=== PATIENT | male | born 1960 | race Caucasian/White ===

== ENCOUNTER 2018-01-12 16:15 | Inpatient (IN) | payer MEDICARE, MEDICAID ==
--- NOTE | 2018-01-12 16:47 | ED Physician Chart ---
ED Chief Complaint/HPI - Patient Information Date Seen:: 01/12/18 Time Seen:: 16:30 Chief Complaint:: Psychological break History of Present Illness:: Patient had an acute psychological break while at his care facility, 1 day duration. Patient taken to ER for evaluation. Allergies:: Allergies Allergy/AdvReac Type Severity Reaction Status Date / Time No Known Allergies Allergy Verified 01/12/18 16:25 Vitals:: Vital Signs - 8 hr 01/12/18 16:15 Temp 98.4 F HR 68 RR 16 BP 107/72 O2 Sat % 97 Historian:: EMS, Medical Records Review:: Nurse's Note Reviewed, Transfer documents Reviewed ED Review of Systems - Review of Systems General/Constitutional: No fever Skin: No bruising Head: No headache Eyes: No diplopia ENT: No nasal drainage Neck: No thyromegaly Cardio Vascular: No PND Pulmonary: No SOB GI: No nausea, No vomiting G/U: No hematuria Musculoskeletal: No bone or joint pain Psychiatric: Prior psych history (history of psychosis) Hematopoietic: No bruising Allergic/Immuno: No urticaria Neurological: No syncope ED Past Medical History - Past Medical History Obtainable: No (unreliable) Past Medical History: Other (previous psych history, unreliable historian.) Social History: Care Facility Psychiatricy History: Schizophrenia Family Medical History - Family Member Mother History Unknown: Yes ED Physical Exam - Physical Examination General/Constitutional: Well-developed, well-nourished, No distress, Non-toxic appearing Head: Atraumatic Eyes: Lids, conjuctiva normal Skin: No ecchymosis ENMT: External ears, nose nl Neck: Nontender Respiratory: Nl effort/Exclusion (lazo inspiratory advettial sounds) Cardio Vascular: RRR GI: No tenderness/rebounding/guarding : No CVA tenderness Neuro/Psych: Normal motor strength, No focal deficits Misc: Normal back ED Assessment - Assessment General Assessment: Patient had a psychological break with aggressive behavior while in care facility. ED Septic Shock - . Is Septic Shock (SBP<90, OR Lactate>4 mmol\L) present?: No - <6hrs of presentation: Vital Signs: Vital Signs - 8 hr 01/12/18 16:15 Temp 98.4 F HR 68 RR 16 BP 107/72 O2 Sat % 97 ED Reassessment (Disposition) - Reassessment Reassessment:: No improvement in condition, patient admitted to [facility] for observation, assessment, and treatment. Reassessment Condition:: Unchanged - Diagnosis Diagnosis:: acute psychotic break - Patient Disposition Discharge/Transfer:: Acute Care w/in this hosp
[2018-01-12 17:05] LABS: % BASOPHILS 0.3 % (0.0-2.0); % EOSINOPHILS 0.9 % (0.0-5.0); % LYMPHOCYTES 28.3 % (20.0-50.0); % MONOCYTES 7.1 % (2.0-10.0); % NEUTROPHILS 63.4 % (40.0-80.0); EOSINOPHILE ABSOLUTE 0.1 Th/cmm (0.1-0.4); HEMATOCRIT 37.2 % (41.0-60); HEMOGLOBIN 12.8 gm/dL (12-16); LYMPHOCYTE ABSOLUTE 2.2 Th/cmm (1.5-3.0); MEAN CELL VOLUME 91.1 fl (80-99); MEAN CORPUSCULAR HEMOGLOBIN 31.3 pg (26.0-30.0); MEAN CORPUSCULAR HGB CONC 34.3 pg (28.0-36.0); MEAN PLATELET VOLUME 7.1 fl; MONOCYTE ABSOLUTE 0.6 Th/cmm (0.3-1.0); NEUTROPHILE ABSOLUTE 4.9 Th/cmm (1.8-8.0); PLATELET COUNT 280 Th/cmm (150-400); RED BLOOD COUNT 4.08 Mil/cmm (4.30-5.70); RED CELL DISTRIBUTION WIDTH 13.2 % (11.5-20.0); WHITE BLOOD COUNT 7.8 Th/cmm (4.8-10.8)
[2018-01-12 17:21] LABS: ANION GAP 8.7 (7.0-16.0); BUN - UREA NITROGEN 14 mg/dL (7-25); CALCIUM SERUM 9.4 mg/dL (8.6-10.3); CARBON DIOXIDE 27.2 mEq/L (21.0-31.0); CHLORIDE 100 mEq/L (98-107); CREATININE - SERUM 0.8 mg/dL (0.7-1.3); GFR AFRICAN-AMERICAN > 60.0 ml/min (>90); GFR NON AFRICAN-AMERICAN > 60.0 ml/min; GLUCOSE 83 mg/dL (70-105); POTASSIUM SERUM 3.9 mEq/L (3.5-5.1); SODIUM SERUM 132 mEq/L (136-145)
[2018-01-12 20:04] VITALS: BP 138/85
[2018-01-12] MEDS ORDERED: Magnesium Hydroxide (MOM) 30 mL UDC PO PRN (20:04)
[2018-01-12] MEDS ORDERED: Maalox 30 mL Cup PO PRN (20:04)
[2018-01-12] MEDS ORDERED: Albuterol Nebulizer 2.5mg/3mL HHN PRN (20:07)
[2018-01-12] MEDS ORDERED: Non-Formulary Item 1 EA (Meloxicam [Meloxicam] 15 MG) PO PRN (20:07)
--- NOTE | 2018-01-12 22:43 | History & Physical ---
ADMIT DATE: 01/12/2018 This is an elderly male patient who was acting very aggressive at the [facility] and [facility] and the patient was brought to the Emergency Room at [facility], was seen by the ER, was medically clear and no major medical issues. REVIEW OF SYSTEMS: Essentially negative except history of psych history. LABORATORY DATA: Laboratory data also obtained. PHYSICAL EXAMINATION: GENERAL: Well-developed, well-nourished elderly male, nontoxic appearing, male patient, not in acute distress. VITAL SIGNS: Stable. HEAD: Normal. ENT: Normal. NECK: Supple, nontender. LUNGS: Clear. CARDIOVASCULAR SYSTEM: S1, S2 heard. ABDOMEN: Soft. Bowel sounds heard. CENTRAL NERVOUS SYSTEM: Grossly normal. ASSESSMENT: Acute psychosis, aggressive behavior and no major medical issues. PLAN: The patient is being admitted to [facility] and I will see the patient there and follow along with Dr. Guo. JOB# [id number]
[2018-01-13] MEDS: Hydrocodone/APAP 10 mg/325 mg Tab PO PRN ×3 (01:34→18:43)
[2018-01-13] MEDS: Multivitamin Tab PO SCH (09:32)
[2018-01-13] MEDS: Enoxaparin 30 mg/0.3 mL 0.3mL Syr SUBQ SCH ×2 (12:25→21:52)
--- NOTE | 2018-01-14 01:46 | Psychiatric Evaluation ---
DATE OF SERVICE: 01/13/2018 PSYCHIATRIC INITIAL EVALUATION AND MENTAL STATUS EXAM AGE: 57. SEX: Male. PHYSICIAN: Dr. Guo. CHIEF COMPLAINT: Agitation and aggressive behavior. HISTORY OF PRESENT ILLNESS: The patient is a 57-year-old male who was transferred from [facility]. The patient has been aggressive and has been striking out at staff. He also had been easily agitated and has been in angry and in irritable mood. The patient also has not been able to follow any of staff directions. The patient has history of what seems to be schizoaffective disorder and the patient has not been compliant with taking his medications at times, which is basically a list of them. PAST PSYCHIATRIC HISTORY: The patient has history of what seems to be schizoaffective. PAST MEDICAL HISTORY: The patient has no major medical problems. The patient was medically cleared in the Emergency Room. SOCIAL HISTORY: The patient lives in a prison. No known alcohol or street drug use. No known legal issues. ALLERGIES: No known allergies. MENTAL STATUS EXAMINATION: The patient appears slightly older than stated age. Anxious. Angry. Irritable mood. Thought processes are circumstantial, but no flight of ideas. The patient denies hallucinations or delusions. Denies any suicide or homicide. The patient is alert and oriented to situation and place, but not date or time. Impaired immediate memory, but intact, recent and remote memories. Poor insight and poor judgment. ASSESSMENT: PRIMARY DIAGNOSIS: Schizoaffective disorder, bipolar type, with psychotic features. TREATMENT PLAN: Monitor the patient's behavior and condition closely. Continue psychotropic medications. We will adjust the dose. ESTIMATED LENGTH OF STAY: 5-7 days. PATIENT'S STRENGTHS AND WEAKNESSES: The patient's strength is not clear at this time. Weaknesses is ineffective coping. AFTER DISCHARGE PLAN: Outpatient treatment and followup will continue as an outpatient. CRITERIA FOR DISCHARGE: Better impulse control and stabilizing psychotropic medications and establish outpatient treatment plans. JOB# [id number]
[2018-01-14] MEDS: Multivitamin Tab PO SCH (09:05)
[2018-01-14] MEDS: Enoxaparin 30 mg/0.3 mL 0.3mL Syr SUBQ SCH ×2 (09:05→20:54)
[2018-01-14] MEDS ORDERED: Haloperidol Lactate 5 mg/mL 1mL Vial IM ONE (14:25)
[2018-01-14] MEDS ORDERED: Haloperidol Lactate 5 mg/mL 1mL Vial ONE (14:27)
--- NOTE | 2018-01-14 15:38 | General Progress Note ---
Subjective - Review of Systems Events since last encounter: aggressive behavior otherwise no distress Objective - Results Result Diagrams: 01/12/18 16:59 01/12/18 16:59 Recent Labs: Laboratory Last Values WBC 7.8 Th/cmm (4.8-10.8) 01/12/18 16:59 RBC 4.08 Mil/cmm (4.30-5.70) L 01/12/18 16:59 Hgb 12.8 gm/dL (12-16) 01/12/18 16:59 Hct 37.2 % (41.0-60) L 01/12/18 16:59 MCV 91.1 fl (80-99) 01/12/18 16:59 MCH 31.3 pg (26.0-30.0) H 01/12/18 16:59 MCHC Differential 34.3 pg (28.0-36.0) 01/12/18 16:59 RDW 13.2 % (11.5-20.0) 01/12/18 16:59 Plt Count 280 Th/cmm (150-400) 01/12/18 16:59 MPV 7.1 fl 01/12/18 16:59 Neutrophils % 63.4 % (40.0-80.0) 01/12/18 16:59 Lymphocytes % 28.3 % (20.0-50.0) 01/12/18 16:59 Monocytes % 7.1 % (2.0-10.0) 01/12/18 16:59 Eosinophils % 0.9 % (0.0-5.0) 01/12/18 16:59 Basophils % 0.3 % (0.0-2.0) 01/12/18 16:59 Sodium 132 mEq/L (136-145) L 01/12/18 16:59 Potassium 3.9 mEq/L (3.5-5.1) 01/12/18 16:59 Chloride 100 mEq/L (98-107) 01/12/18 16:59 Carbon Dioxide 27.2 mEq/L (21.0-31.0) 01/12/18 16:59 Anion Gap 8.7 (7.0-16.0) 01/12/18 16:59 BUN 14 mg/dL (7-25) 01/12/18 16:59 Creatinine 0.8 mg/dL (0.7-1.3) 01/12/18 16:59 Est GFR ( Amer) > 60.0 ml/min (>90) 01/12/18 16:59 Est GFR (Non-Af Amer) > 60.0 ml/min 01/12/18 16:59 BUN/Creatinine Ratio 17.5 01/12/18 16:59 Glucose 83 mg/dL (70-105) 01/12/18 16:59 Calcium 9.4 mg/dL (8.6-10.3) 01/12/18 16:59 - Physical Exam Vitals and I&O: Vital Signs Temp 98.1 F 01/13/18 16:20 Pulse 80 01/13/18 20:05 Resp 16 01/14/18 08:00 BP 135/73 01/13/18 16:20 Pulse Ox 97 01/13/18 20:05 Active Medications: Current Medications Acetaminophen (Tylenol) 650 mg PO Q4HR PRN PRN Reason: Mild Pain / Temp above 100 Stop: 03/13/18 20:03 Acetaminophen/Hydrocodone Bitart ([place] 10 Mg/325 Mg) 1 tab PO Q6H PRN PRN Reason: Severe Pain Stop: 03/13/18 20:06 Last Admin: 01/13/18 18:43 Dose: 1 tab Acetaminophen/Hydrocodone Bitart ([place] 5mg/325mg) 1 tab PO Q6H PRN PRN Reason: moderate pain Stop: 03/13/18 20:06 Al Hydrox/Mg Hydrox/Simethicone (Maalox) 30 ml PO Q4HR PRN PRN Reason: GI DISTRESS Stop: 03/13/18 20:03 Albuterol Sulfate (Albuterol 2.5mg/3ml Neb Ud) 2.5 mg HHN Q6HR PRN PRN Reason: sob Stop: 03/13/18 20:06 Enoxaparin Sodium (Lovenox) 30 mg SUBQ Q12HR KB Stop: 03/14/18 10:59 Last Admin: 01/14/18 09:05 Dose: 30 mg Lorazepam (Ativan) 0.5 mg PO Q4HR PRN; Protocol PRN Reason: Anxiety/agitation Stop: 02/11/18 20:03 Last Admin: 01/13/18 21:32 Dose: 0.5 mg Magnesium Hydroxide (Milk Of Magnesia) 30 ml PO HS PRN PRN Reason: Constipation Multivitamins/Vitamin C (Theragran) 1 tab PO DAILY KB Stop: 03/14/18 08:59 Last Admin: 01/14/18 09:05 Dose: 1 tab Ondansetron HCl (Zofran Odt) 4 mg PO Q6HR PRN PRN Reason: nausea and vomiting Stop: 03/13/18 20:06 Risperidone (Risperdal) 1 mg PO HS KB; Protocol Stop: 03/15/18 20:59 Tramadol HCl (Ultram) 50 mg PO Q6H PRN PRN Reason: pain Stop: 03/13/18 20:06 Zolpidem Tartrate (Ambien) 5 mg PO HS PRN PRN Reason: Insomnia Stop: 03/13/18 20:03 Last Admin: 01/13/18 20:55 Dose: 5 mg
--- NOTE | 2018-01-14 21:21 | Progress Notes ---
DATE: 01/14/2018 SUBJECTIVE: Chart reviewed and the patient interviewed. Also discussed the patient's condition with the staff and reviewed records and labs. The patient continued to be angry at times. The patient also is talking to herself and he is laughing to self. The patient also is still having episodes of anger and irritability and wanted to be left alone. The patient also still actively hallucinating and responding. Also, the patient still has some somatic complaints. Otherwise, the patient continued to comply with taking Risperdal with no side effects. ASSESSMENT: The patient is still psychotic. TREATMENT PLAN: We will increase Risperdal to 1 mg twice a day. Also, we will continue working on his ineffective coping and his psychosis and continue to follow up. JOB# [id number]
[2018-01-15] MEDS: Multivitamin Tab PO SCH (08:29)
[2018-01-15] MEDS: Enoxaparin 30 mg/0.3 mL 0.3mL Syr SUBQ SCH ×2 (08:29→20:29)
--- NOTE | 2018-01-15 12:25 | General Progress Note ---
Subjective - Review of Systems Events since last encounter: patient psychotic paranoid irritable no signs of pain Objective - Results Result Diagrams: 01/12/18 16:59 01/12/18 16:59 Recent Labs: Laboratory Last Values WBC 7.8 Th/cmm (4.8-10.8) 01/12/18 16:59 RBC 4.08 Mil/cmm (4.30-5.70) L 01/12/18 16:59 Hgb 12.8 gm/dL (12-16) 01/12/18 16:59 Hct 37.2 % (41.0-60) L 01/12/18 16:59 MCV 91.1 fl (80-99) 01/12/18 16:59 MCH 31.3 pg (26.0-30.0) H 01/12/18 16:59 MCHC Differential 34.3 pg (28.0-36.0) 01/12/18 16:59 RDW 13.2 % (11.5-20.0) 01/12/18 16:59 Plt Count 280 Th/cmm (150-400) 01/12/18 16:59 MPV 7.1 fl 01/12/18 16:59 Neutrophils % 63.4 % (40.0-80.0) 01/12/18 16:59 Lymphocytes % 28.3 % (20.0-50.0) 01/12/18 16:59 Monocytes % 7.1 % (2.0-10.0) 01/12/18 16:59 Eosinophils % 0.9 % (0.0-5.0) 01/12/18 16:59 Basophils % 0.3 % (0.0-2.0) 01/12/18 16:59 Sodium 132 mEq/L (136-145) L 01/12/18 16:59 Potassium 3.9 mEq/L (3.5-5.1) 01/12/18 16:59 Chloride 100 mEq/L (98-107) 01/12/18 16:59 Carbon Dioxide 27.2 mEq/L (21.0-31.0) 01/12/18 16:59 Anion Gap 8.7 (7.0-16.0) 01/12/18 16:59 BUN 14 mg/dL (7-25) 07/16/18 16:59 Creatinine 0.8 mg/dL (0.7-1.3) 01/12/18 16:59 Est GFR ( Amer) > 60.0 ml/min (>90) 01/12/18 16:59 Est GFR (Non-Af Amer) > 60.0 ml/min 01/12/18 16:59 BUN/Creatinine Ratio 17.5 01/12/18 16:59 Glucose 83 mg/dL (70-105) 01/12/18 16:59 Calcium 9.4 mg/dL (8.6-10.3) 01/12/18 16:59 - Physical Exam Vitals and I&O: Vital Signs Temp 98.1 F 01/13/18 16:20 Pulse 66 01/15/18 07:45 Resp 16 01/15/18 08:00 BP 121/71 01/14/18 16:03 Pulse Ox 98 01/15/18 07:45 Active Medications: Current Medications Acetaminophen (Tylenol) 650 mg PO Q4HR PRN PRN Reason: Mild Pain / Temp above 100 Stop: 03/13/18 20:03 Acetaminophen/Hydrocodone Bitart ([place] 10 Mg/325 Mg) 1 tab PO Q6H PRN PRN Reason: Severe Pain Stop: 03/13/18 20:06 Last Admin: 01/13/18 18:43 Dose: 1 tab Acetaminophen/Hydrocodone Bitart ([place] 5mg/325mg) 1 tab PO Q6H PRN PRN Reason: moderate pain Stop: 03/13/18 20:06 Al Hydrox/Mg Hydrox/Simethicone (Maalox) 30 ml PO Q4HR PRN PRN Reason: GI DISTRESS Stop: 03/13/18 20:03 Albuterol Sulfate (Albuterol 2.5mg/3ml Neb Ud) 2.5 mg HHN Q6HR PRN PRN Reason: sob Stop: 03/13/18 20:06 Enoxaparin Sodium (Lovenox) 30 mg SUBQ Q12HR KB Stop: 03/14/18 10:59 Last Admin: 01/15/18 08:29 Dose: 30 mg Lorazepam (Ativan) 0.5 mg PO Q4HR PRN; Protocol PRN Reason: Anxiety/agitation Stop: 02/11/18 20:03 Last Admin: 01/15/18 08:28 Dose: 0.5 mg Magnesium Hydroxide (Milk Of Magnesia) 30 ml PO HS PRN PRN Reason: Constipation Multivitamins/Vitamin C (Theragran) 1 tab PO DAILY KB Stop: 03/14/18 08:59 Last Admin: 01/15/18 08:29 Dose: 1 tab Ondansetron HCl (Zofran Odt) 4 mg PO Q6HR PRN PRN Reason: nausea and vomiting Stop: 03/13/18 20:06 Risperidone (Risperdal) 1 mg PO HS KB; Protocol Stop: 03/15/18 20:59 Last Admin: 01/14/18 20:55 Dose: 1 mg Tramadol HCl (Ultram) 50 mg PO Q6H PRN PRN Reason: pain Stop: 03/13/18 20:06 Zolpidem Tartrate (Ambien) 5 mg PO HS PRN PRN Reason: Insomnia Stop: 03/13/18 20:03 Last Admin: 01/13/18 20:55 Dose: 5 mg
[2018-01-15] MEDS: Hydrocodone/APAP 5mg/325mg Tab PO PRN (21:21)
[2018-01-16] MEDS: Enoxaparin 30 mg/0.3 mL 0.3mL Syr SUBQ SCH ×2 (09:31→21:21)
[2018-01-16] MEDS: Multivitamin Tab PO SCH (09:31)
--- NOTE | 2018-01-16 20:34 | Progress Notes ---
DATE: 01/15/2018 SUBJECTIVE: Chart reviewed and the patient interviewed. Also discussed the patient's condition with the staff and reviewed records and labs. The patient continued to be anxious and is still confused and in irritable mood. The patient also is somehow suspicious. Also, guarded and answer questions with some paranoia. Otherwise, the patient is compliant with taking medication with no side effects. ASSESSMENT: The patient is still agitated and need close monitoring. TREATMENT PLAN: Continue monitoring his behavior and his condition closely. Also, continue Risperdal and we will continue to follow up closely. JOB# [id number]
[2018-01-17] MEDS: Hydrocodone/APAP 10 mg/325 mg Tab PO PRN (01:53)
[2018-01-17] MEDS: Enoxaparin 30 mg/0.3 mL 0.3mL Syr SUBQ SCH ×2 (08:42→21:27)
[2018-01-17] MEDS: Multivitamin Tab PO SCH (08:42)
--- NOTE | 2018-01-17 17:53 | Progress Notes ---
DATE: 01/17/2018 SUBJECTIVE: The patient was seen in his room. The patient appears to be guarded, irritable and episodes of paranoia. Otherwise, the patient appears to be in no acute distress. OBJECTIVE: VITAL SIGNS: Temperature 98.1, heart rate 78, blood pressure 145/85, respirations 16, 98% on room air. HEENT: Head is atraumatic and normocephalic. Eyes: Bilateral conjunctivae are clear. Bilateral pupils are equally round and reactive. NECK: Supple. No JVD. CARDIOVASCULAR: S1 and S2, without murmur. PULMONARY: Clear to auscultation. GASTROINTESTINAL: Soft and nontender without guarding. Positive bowel sounds. MUSCULOSKELETAL: No clubbing. No cyanosis noted. ASSESSMENT: 1. Psychosis. 2. Osteoarthritis. 3. Unsteady gait. 4. Insomnia. PLAN: We will continue to keep the patient inpatient in senior mental health unit. We will follow up with a psychiatrist to monitor the patient's condition and behavior. Treatment plans were discussed with the patient's nurse. Treatment plans were discussed with Dr. Devlin. JOB# [id number]
--- NOTE | 2018-01-17 21:24 | Progress Notes ---
DATE: 01/13/2018 SUBJECTIVE: Chart reviewed and the patient interviewed. Also discussed the patient's condition with the staff and reviewed records and labs. The patient is still actively hallucinating and actively responding to stimuli. The patient is talking to himself. Also, is having severe mood swings and severe anxiety. The patient also is restless and has been very suspicious and paranoid. The patient also is destructive to others. The patient also seems to be preoccupied. Also actively responding to stimuli. ASSESSMENT: The patient is still actively psychotic and agitated. TREATMENT PLAN: Continue to monitor his behavior and his condition closely. Also, we will increase Risperdal to 1 mg twice a day, also increase mg twice a day. Also, continue to work on his poor impulse control and agitation and will continue to follow up. JOB# [id number]
[2018-01-17] MEDS: Hydrocodone/APAP 5mg/325mg Tab PO PRN (23:58)
[2018-01-18] MEDS: Multivitamin Tab PO SCH (08:39)
[2018-01-18] MEDS: Enoxaparin 30 mg/0.3 mL 0.3mL Syr SUBQ SCH ×2 (09:30→22:14)
--- NOTE | 2018-01-18 10:26 | General Progress Note ---
Subjective - Review of Systems Events since last encounter: patient still psychotic no signs of pain Objective - Results Result Diagrams: 01/12/18 16:59 01/12/18 16:59 Recent Labs: Laboratory Last Values WBC 7.8 Th/cmm (4.8-10.8) 01/12/18 16:59 RBC 4.08 Mil/cmm (4.30-5.70) L 01/12/18 16:59 Hgb 12.8 gm/dL (12-16) 01/12/18 16:59 Hct 37.2 % (41.0-60) L 01/12/18 16:59 MCV 91.1 fl (80-99) 01/12/18 16:59 MCH 31.3 pg (26.0-30.0) H 01/12/18 16:59 MCHC Differential 34.3 pg (28.0-36.0) 01/12/18 16:59 RDW 13.2 % (11.5-20.0) 01/12/18 16:59 Plt Count 280 Th/cmm (150-400) 01/12/18 16:59 MPV 7.1 fl 01/12/18 16:59 Neutrophils % 63.4 % (40.0-80.0) 01/12/18 16:59 Lymphocytes % 28.3 % (20.0-50.0) 01/12/18 16:59 Monocytes % 7.1 % (2.0-10.0) 01/12/18 16:59 Eosinophils % 0.9 % (0.0-5.0) 01/12/18 16:59 Basophils % 0.3 % (0.0-2.0) 01/12/18 16:59 Sodium 132 mEq/L (136-145) L 01/12/18 16:59 Potassium 3.9 mEq/L (3.5-5.1) 01/12/18 16:59 Chloride 100 mEq/L (98-107) 01/12/18 16:59 Carbon Dioxide 27.2 mEq/L (21.0-31.0) 01/12/18 16:59 Anion Gap 8.7 (7.0-16.0) 01/12/18 16:59 BUN 14 mg/dL (7-25) 01/12/18 16:59 Creatinine 0.8 mg/dL (0.7-1.3) 01/12/18 16:59 Est GFR ( Amer) > 60.0 ml/min (>90) 01/12/18 16:59 Est GFR (Non-Af Amer) > 60.0 ml/min 01/12/18 16:59 BUN/Creatinine Ratio 17.5 01/12/18 16:59 Glucose 83 mg/dL (70-105) 01/12/18 16:59 Calcium 9.4 mg/dL (8.6-10.3) 01/12/18 16:59 - Physical Exam Vitals and I&O: Vital Signs Temp 97.8 F 01/18/18 06:51 Pulse 78 01/18/18 07:36 Resp 16 01/18/18 07:36 BP 116/76 01/18/18 06:51 Pulse Ox 98 01/18/18 07:36 Active Medications: Current Medications Acetaminophen (Tylenol) 650 mg PO Q4HR PRN PRN Reason: Mild Pain / Temp above 100 Stop: 03/13/18 20:03 Acetaminophen/Hydrocodone Bitart ([place] 10 Mg/325 Mg) 1 tab PO Q6H PRN PRN Reason: Severe Pain Stop: 03/13/18 20:06 Last Admin: 01/17/18 01:53 Dose: 1 tab Acetaminophen/Hydrocodone Bitart ([place] 5mg/325mg) 1 tab PO Q6H PRN PRN Reason: moderate pain Stop: 03/13/18 20:06 Last Admin: 01/17/18 23:58 Dose: 1 tab Al Hydrox/Mg Hydrox/Simethicone (Maalox) 30 ml PO Q4HR PRN PRN Reason: GI DISTRESS Stop: 03/13/18 20:03 Albuterol Sulfate (Albuterol 2.5mg/3ml Neb Ud) 2.5 mg HHN Q6HR PRN PRN Reason: sob Stop: 03/13/18 20:06 Enoxaparin Sodium (Lovenox) 30 mg SUBQ Q12HR KB Stop: 03/14/18 10:59 Last Admin: 01/17/18 21:27 Dose: 30 mg Lorazepam (Ativan) 0.5 mg PO Q4HR PRN; Protocol PRN Reason: Anxiety/agitation Stop: 02/11/18 20:03 Last Admin: 01/18/18 09:38 Dose: 0.5 mg Magnesium Hydroxide (Milk Of Magnesia) 30 ml PO HS PRN PRN Reason: Constipation Multivitamins/Vitamin C (Theragran) 1 tab PO DAILY KB Stop: 03/14/18 08:59 Last Admin: 01/18/18 08:39 Dose: 1 tab Ondansetron HCl (Zofran Odt) 4 mg PO Q6HR PRN PRN Reason: nausea and vomiting Stop: 03/13/18 20:06 Risperidone (Risperdal) 1 mg PO BID KB; Protocol Stop: 03/17/18 08:59 Last Admin: 01/18/18 08:39 Dose: 1 mg Tramadol HCl (Ultram) 50 mg PO Q6H PRN PRN Reason: pain Stop: 03/13/18 20:06 Last Admin: 01/17/18 18:36 Dose: 50 mg Zolpidem Tartrate (Ambien) 5 mg PO HS PRN PRN Reason: Insomnia Stop: 03/13/18 20:03 Last Admin: 01/17/18 21:28 Dose: 5 mg Nutritional Asmnt/Malnutr-PDOC - Dietary Evaluation Malnutrition Findings (Please click <Entered> for more info): Nutritional Asmnt/Malnutrition Start: 01/17/18 09: 53 Text: Status: Complete Freq: Protocol: Document 01/17/18 09:53 TRISTON (Rec: 01/17/18 10:04 TRISTON [id number]) Nutritional Asmnt/Malnutrition Patient General Information Nutritional Screening Low Risk Diagnosis Psychosis Pertinent Medical Hx/Surgical Hx anxiety, psychosis, DVT Subjective Information Per nursing ntoes, paient can be unpredictable, aggressive and assaultive. Current Diet Order/ Nutrition Support Regular Patient / S.O Not Indicated Pertinent Medications maalox, MOM, Theragran, Zofran Pertinent Labs (01/12) Na 132 Nutritional Hx/Data Height 1.83 m Height (Calculated Centimeters) 182.9 Current Weight (lbs) 68.039 kg Weight (Calculated Kilograms) 68.0 Weight (Calculated Grams) 83998.9 [place] Body Weight 178 % [place] Body Weight 84 Body Mass Index (BMI) 20.3 Recent Weight Change No Weight Status Approriate GI Symptoms GI Symptoms None Last BM None noted in EMR Difficult in: None Food Allergies No Cultural/Ethnic/Hinduism Belief None indicated Usual diet at home Unknown Skin Integrity/Comment: [place] 20, per nursing notes, "area of concern" scar, pink, potential Estimated Nutritional Goals BEE in Kcals: Adj wt of IBW Calories/Kcals/Kg 25-30 kcal/kg using IBW 80.9kg Kcals Calculated ~5362-4223 kcal/day Protein: Adj wt of IBW Protein g/k.8-1 gm/kg using IBW Protein Calculated ~65-80 gm/day Fluid: ml ~7964-8029 ml/day Nutritional Problem 1. Problem Problem Altered nutrition related lab values related to Etiology electrolyte imbalance aeb Signs/Symptoms: Na 132 Intervention/Recommendation Comments 1. Continue regular diet as tolerated by patient. 2. Consider re-checking Na level to determine need for fluid restriction/sodium restriction. Expected Outcomes/Goals Expected Outcomes/Goals PO intake >75% of meals, weight trend toward IBW, nutrition related labs WNL (Na normalizes), improved skin integrity F/U in 3-5 days MR (01/20-) Physician Parameters for PEM Normal Weight % <75% (Severe)
--- NOTE | 2018-01-18 19:36 | Progress Notes ---
DATE: 01/18/2018 SUBJECTIVE: Chart reviewed and the patient interviewed. Also discussed the patient's condition with the staff and reviewed records and labs. The patient is pacing up and down the unit. The patient also still needs redirections, but seems to be better to redirect him and he is less irritable and less agitated. The patient also easier to redirect him. He is still having episodes of severe anger, but less than before. The patient also is compliant with taking his medications with no side effects of medications. ASSESSMENT: The patient is still agitated, but showing improvement. TREATMENT PLAN: Continue monitoring his behavior and his condition closely. Also, continue Risperdal 1 mg twice a day and continue to follow up. [facility]# [id number]
--- NOTE | 2018-01-19 12:27 | Progress Notes ---
DATE: 01/17/[address] Nathaniel Guo. SUBJECTIVE: The patient was interviewed. Case was discussed with staff and chart reviewed. Per the staff, the patient has been labile. The patient has been unpredictable, aggressive and also wandering the unit. The patient was interviewed this morning at bedside. The patient is disorganized. He is unable to engage very much with the interview. He is also quite impulsive and easily angered. The patient seems to be a little less confused as he is alert and oriented to person, place, and he understands that the year is 2017. He otherwise is mumbling and not making any sense. MENTAL STATUS EXAMINATION: The patient appears his stated age. He appears to be unkempt. He has poor eye contact. He is intermittently engaged. His speech is mumbled. His mood and affect appear to be labile. Thought process appears to be disorganized. Unable to assess suicidal or homicidal ideations due to his poor cooperation, but he does seem to be internally preoccupied and also paranoid. He is alert and oriented to person, place and year. His insight, judgment and impulse control seem to be poor. ASSESSMENT: This is a 57-year-old male admitted to [facility] for acute psychosis. The patient at this time continues to be aggressive on the unit, labile, unpredictable, also disorganized and has no plan for self-care. PLAN: We will continue the patient on acute hospitalization. We will continue medications prescribed. We will encourage the patient to verbalize his needs. We will encourage the patient to participate in group and milieu therapy. We will encourage the patient to work with social psychologist and foster care case manager for discharge planning and need for any community resources. JOB# [id number] CARIN
[2018-01-19] MEDS: Enoxaparin 30 mg/0.3 mL 0.3mL Syr SUBQ SCH ×2 (13:09→21:51)
[2018-01-19] MEDS: Multivitamin Tab PO SCH (13:16)
[2018-01-19] MEDS: Hydrocodone/APAP 10 mg/325 mg Tab PO PRN (13:18)
--- NOTE | 2018-01-19 15:00 | General Progress Note ---
Subjective - Review of Systems Events since last encounter: patient unpredictable aggressive no signs of pain Objective - Results Result Diagrams: 01/12/18 16:59 01/12/18 16:59 Recent Labs: Laboratory Last Values WBC 7.8 Th/cmm (4.8-10.8) 01/12/18 16:59 RBC 4.08 Mil/cmm (4.30-5.70) L 01/12/18 16:59 Hgb 12.8 gm/dL (12-16) 01/12/18 16:59 Hct 37.2 % (41.0-60) L 01/12/18 16:59 MCV 91.1 fl (80-99) 01/12/18 16:59 MCH 31.3 pg (26.0-30.0) H 01/12/18 16:59 MCHC Differential 34.3 pg (28.0-36.0) 01/12/18 16:59 RDW 13.2 % (11.5-20.0) 01/12/18 16:59 Plt Count 280 Th/cmm (150-400) 01/12/18 16:59 MPV 7.1 fl 01/12/18 16:59 Neutrophils % 63.4 % (40.0-80.0) 01/12/18 16:59 Lymphocytes % 28.3 % (20.0-50.0) 01/12/18 16:59 Monocytes % 7.1 % (2.0-10.0) 01/12/18 16:59 Eosinophils % 0.9 % (0.0-5.0) 01/12/18 16:59 Basophils % 0.3 % (0.0-2.0) 01/12/18 16:59 Sodium 132 mEq/L (136-145) L 01/12/18 16:59 Potassium 3.9 mEq/L (3.5-5.1) 01/12/18 16:59 Chloride 100 mEq/L (98-107) 01/12/18 16:59 Carbon Dioxide 27.2 mEq/L (21.0-31.0) 01/12/18 16:59 Anion Gap 8.7 (7.0-16.0) 01/12/18 16:59 BUN 14 mg/dL (7-25) 01/12/18 16:59 Creatinine 0.8 mg/dL (0.7-1.3) 01/12/18 16:59 Est GFR ( Amer) > 60.0 ml/min (>90) 01/12/18 16:59 Est GFR (Non-Af Amer) > 60.0 ml/min 01/12/18 16:59 BUN/Creatinine Ratio 17.5 01/12/18 16:59 Glucose 83 mg/dL (70-105) 01/12/18 16:59 Calcium 9.4 mg/dL (8.6-10.3) 01/12/18 16:59 - Physical Exam Vitals and I&O: Vital Signs Temp 98.2 F 01/19/18 05:55 Pulse 75 01/19/18 07:15 Resp 20 01/19/18 07:15 BP 114/71 01/19/18 05:55 Pulse Ox 97 01/19/18 07:15 Intake & Output 01/18/18 01/19/18 01/19/18 18:59 06:59 18:59 Intake Total 480 Balance 480 Intake: Oral 480 Other: # Voids 2 Active Medications: Current Medications Acetaminophen (Tylenol) 650 mg PO Q4HR PRN PRN Reason: Mild Pain / Temp above 100 Stop: 03/13/18 20:03 Acetaminophen/Hydrocodone Bitart ([place] 10 Mg/325 Mg) 1 tab PO Q6H PRN PRN Reason: Severe Pain Stop: 03/13/18 20:06 Last Admin: 01/19/18 13:18 Dose: 1 tab Acetaminophen/Hydrocodone Bitart ([place] 5mg/325mg) 1 tab PO Q6H PRN PRN Reason: moderate pain Stop: 03/13/18 20:06 Last Admin: 01/17/18 23:58 Dose: 1 tab Al Hydrox/Mg Hydrox/Simethicone (Maalox) 30 ml PO Q4HR PRN PRN Reason: GI DISTRESS Stop: 03/13/18 20:03 Albuterol Sulfate (Albuterol 2.5mg/3ml Neb Ud) 2.5 mg HHN Q6HR PRN PRN Reason: sob Stop: 03/13/18 20:06 Enoxaparin Sodium (Lovenox) 30 mg SUBQ Q12HR KB Stop: 03/14/18 10:59 Last Admin: 01/19/18 13:09 Dose: Not Given Lorazepam (Ativan) 0.5 mg PO Q4HR PRN; Protocol PRN Reason: Anxiety/agitation Stop: 02/11/18 20:03 Last Admin: 01/19/18 10:30 Dose: 0.5 mg Magnesium Hydroxide (Milk Of Magnesia) 30 ml PO HS PRN PRN Reason: Constipation Multivitamins/Vitamin C (Theragran) 1 tab PO DAILY KB Stop: 03/14/18 08:59 Last Admin: 01/19/18 13:16 Dose: Not Given Ondansetron HCl (Zofran Odt) 4 mg PO Q6HR PRN PRN Reason: nausea and vomiting Stop: 03/13/18 20:06 Risperidone (Risperdal) 1 mg PO BID KB; Protocol Stop: 03/17/18 08:59 Last Admin: 01/19/18 10:30 Dose: 1 mg Tramadol HCl (Ultram) 50 mg PO Q6H PRN PRN Reason: pain Stop: 03/13/18 20:06 Last Admin: 01/17/18 18:36 Dose: 50 mg Zolpidem Tartrate (Ambien) 5 mg PO HS PRN PRN Reason: Insomnia Stop: 03/13/18 20:03 Last Admin: 01/18/18 22:19 Dose: 5 mg Nutritional Asmnt/Malnutr-PDOC - Dietary Evaluation Malnutrition Findings (Please click <Entered> for more info): Nutritional Asmnt/Malnutrition Start: 01/17/18 09: 53 Text: Status: Complete Freq: Protocol: Document 01/17/18 09:53 TRISTON (Rec: 01/17/18 10:04 TRISTON GLASGOW- [email or web address]) Nutritional Asmnt/Malnutrition Patient General Information Nutritional Screening Low Risk Diagnosis Psychosis Pertinent Medical Hx/Surgical Hx anxiety, psychosis, DVT Subjective Information Per nursing ntoes, paient can be unpredictable, aggressive and assaultive. Current Diet Order/ Nutrition Support Regular Patient / S.O Not Indicated Pertinent Medications maalox, MOM, Theragran, Zofran Pertinent Labs (01/12) Na 132 Nutritional Hx/Data Height 1.83 m Height (Calculated Centimeters) 182.9 Current Weight (lbs) 68.039 kg Weight (Calculated Kilograms) 68.0 Weight (Calculated Grams) 27282.9 [place] Body Weight 178 % [place] Body Weight 84 Body Mass Index (BMI) 20.3 Recent Weight Change No Weight Status Approriate GI Symptoms GI Symptoms None Last BM None noted in EMR Difficult in: None Food Allergies No Cultural/Ethnic/Baptism Belief None indicated Usual diet at home Unknown Skin Integrity/Comment: Lacho Garcia, per nursing notes, "area of concern" scar, pink, potential Estimated Nutritional Goals BEE in Kcals: Adj wt of IBW Calories/Kcals/Kg 25-30 kcal/kg using IBW 80.9kg Kcals Calculated ~9975-3524 kcal/day Protein: Adj wt of IBW Protein g/k.8-1 gm/kg using IBW Protein Calculated ~65-80 gm/day Fluid: ml ~8138-4320 ml/day Nutritional Problem 1. Problem Problem Altered nutrition related lab values related to Etiology electrolyte imbalance aeb Signs/Symptoms: Na 132 Intervention/Recommendation Comments 1. Continue regular diet as tolerated by patient. 2. Consider re-checking Na level to determine need for fluid restriction/sodium restriction. Expected Outcomes/Goals Expected Outcomes/Goals PO intake >75% of meals, weight trend toward IBW, nutrition related labs WNL (Na normalizes), improved skin integrity F/U in 3-5 days MR (01/20-) Physician Parameters for PEM Normal Weight % <75% (Severe)
--- NOTE | 2018-01-19 23:02 | Progress Notes ---
DATE: 01/19/2018 SUBJECTIVE: Case was discussed with staff of the patient, reviewed records. This is a 57-year-old male, who was admitted on 01/12/2018. The patient was admitted because of agitation and irritability. He has been easier to redirect; however, he is isolating himself. He continues to have episodes of severe anger, but not as prominent. He has been compliant with the medication with no side effects, no sedation, no nausea, and no extrapyramidal symptoms. He is on Risperdal 1 mg twice a day, that was increased on 01/16/2018 and no sedation, no nausea, and no extrapyramidal symptoms. We will continue to work with the patient in group therapy, milieu therapy, and adjust the medications as needed. JOB# [id number]
[2018-01-20] MEDS: Hydrocodone/APAP 5mg/325mg Tab PO PRN (01:59)
[2018-01-20] MEDS: Enoxaparin 30 mg/0.3 mL 0.3mL Syr SUBQ SCH ×2 (09:26→21:32)
[2018-01-20] MEDS: Multivitamin Tab PO SCH (09:26)
--- NOTE | 2018-01-20 14:40 | Internal Medicine Prog Note ---
Internal Medicine Subjective - Subjective Service Date: 01/20/18 Patient seen and examined:: with staff Patient is:: awake, verbal Per staff patient has:: tolerating meds Internal Medicine Objective - Results Result Diagrams: 01/12/18 16:59 01/12/18 16:59 Recent Labs: Laboratory Last Values WBC 7.8 Th/cmm (4.8-10.8) 01/12/18 16:59 RBC 4.08 Mil/cmm (4.30-5.70) L 01/12/18 16:59 Hgb 12.8 gm/dL (12-16) 01/12/18 16:59 Hct 37.2 % (41.0-60) L 01/12/18 16:59 MCV 91.1 fl (80-99) 01/12/18 16:59 MCH 31.3 pg (26.0-30.0) H 01/12/18 16:59 MCHC Differential 34.3 pg (28.0-36.0) 01/12/18 16:59 RDW 13.2 % (11.5-20.0) 01/12/18 16:59 Plt Count 280 Th/cmm (150-400) 01/12/18 16:59 MPV 7.1 fl 01/12/18 16:59 Neutrophils % 63.4 % (40.0-80.0) 01/12/18 16:59 Lymphocytes % 28.3 % (20.0-50.0) 01/12/18 16:59 Monocytes % 7.1 % (2.0-10.0) 01/12/18 16:59 Eosinophils % 0.9 % (0.0-5.0) 01/12/18 16:59 Basophils % 0.3 % (0.0-2.0) 01/12/18 16:59 Sodium 132 mEq/L (136-145) L 01/12/18 16:59 Potassium 3.9 mEq/L (3.5-5.1) 01/12/18 16:59 Chloride 100 mEq/L (98-107) 01/12/18 16:59 Carbon Dioxide 27.2 mEq/L (21.0-31.0) 01/12/18 16:59 Anion Gap 8.7 (7.0-16.0) 01/12/18 16:59 BUN 14 mg/dL (7-25) 01/12/18 16:59 Creatinine 0.8 mg/dL (0.7-1.3) 01/12/18 16:59 Est GFR ( Amer) > 60.0 ml/min (>90) 01/12/18 16:59 Est GFR (Non-Af Amer) > 60.0 ml/min 01/12/18 16:59 BUN/Creatinine Ratio 17.5 01/12/18 16:59 Glucose 83 mg/dL (70-105) 01/12/18 16:59 Calcium 9.4 mg/dL (8.6-10.3) 01/12/18 16:59 - Physical Exam Vitals and I&O: Vital Signs Temp 98.8 F 01/20/18 05:37 Pulse 74 01/20/18 07:30 Resp 20 01/20/18 07:30 BP 133/82 01/20/18 05:37 Pulse Ox 94 01/20/18 07:30 Intake & Output 01/19/18 01/20/18 01/20/18 18:59 06:59 18:59 Intake Total 480 Balance 480 Intake: Oral 480 Other: # Voids 2 Active Medications: Current Medications Acetaminophen (Tylenol) 650 mg PO Q4HR PRN PRN Reason: Mild Pain / Temp above 100 Stop: 03/13/18 20:03 Last Admin: 01/20/18 05:20 Dose: 650 mg Acetaminophen/Hydrocodone Bitart ([place] 10 Mg/325 Mg) 1 tab PO Q6H PRN PRN Reason: Severe Pain Stop: 03/13/18 20:06 Last Admin: 01/19/18 13:18 Dose: 1 tab Acetaminophen/Hydrocodone Bitart ([place] 5mg/325mg) 1 tab PO Q6H PRN PRN Reason: moderate pain Stop: 03/13/18 20:06 Last Admin: 01/20/18 01:59 Dose: 1 tab Al Hydrox/Mg Hydrox/Simethicone (Maalox) 30 ml PO Q4HR PRN PRN Reason: GI DISTRESS Stop: 03/13/18 20:03 Albuterol Sulfate (Albuterol 2.5mg/3ml Neb Ud) 2.5 mg HHN Q6HR PRN PRN Reason: sob Stop: 03/13/18 20:06 Enoxaparin Sodium (Lovenox) 30 mg SUBQ Q12HR KB Stop: 03/14/18 10:59 Last Admin: 01/20/18 09:26 Dose: Not Given Lorazepam (Ativan) 0.5 mg PO Q4HR PRN; Protocol PRN Reason: Anxiety/agitation Stop: 02/11/18 20:03 Last Admin: 01/20/18 13:39 Dose: 0.5 mg Magnesium Hydroxide (Milk Of Magnesia) 30 ml PO HS PRN PRN Reason: Constipation Multivitamins/Vitamin C (Theragran) 1 tab PO DAILY KB Stop: 03/14/18 08:59 Last Admin: 01/20/18 09:26 Dose: Not Given Ondansetron HCl (Zofran Odt) 4 mg PO Q6HR PRN PRN Reason: nausea and vomiting Stop: 03/13/18 20:06 Risperidone (Risperdal) 1 mg PO BID KB; Protocol Stop: 03/17/18 08:59 Last Admin: 01/20/18 08:23 Dose: 1 mg Tramadol HCl (Ultram) 50 mg PO Q6H PRN PRN Reason: pain Stop: 03/13/18 20:06 Last Admin: 01/17/18 18:36 Dose: 50 mg Zolpidem Tartrate (Ambien) 5 mg PO HS PRN PRN Reason: Insomnia Stop: 03/13/18 20:03 Last Admin: 01/19/18 21:58 Dose: 5 mg General: alert HEENT: NC/AT, PERRLA Neck: Supple Lungs: CTAB Cardiovascular: RRR, Normal S1, Normal S2, without murmur Abdomen: soft, non-tender, non-distended, positive bowel sound Neurological: alert Internal Medicine Assmt/Plan - Assessment Assessment: oa psychosis - Plan Plan: cpm Nutritional Asmnt/Malnutr-PDOC - Dietary Evaluation Malnutrition Findings (Please click <Entered> for more info): Nutritional Asmnt/Malnutrition Start: 01/17/18 09: 53 Text: Status: Complete Freq: Protocol: Document 01/17/18 09:53 TRISTON (Rec: 01/17/18 10:04 MMBARBIE [id number] [email or web address]) Nutritional Asmnt/Malnutrition Patient General Information Nutritional Screening Low Risk Diagnosis Psychosis Pertinent Medical Hx/Surgical Hx anxiety, psychosis, DVT Subjective Information Per nursing ntoes, paient can be unpredictable, aggressive and assaultive. Current Diet Order/ Nutrition Support Regular Patient / S.O Not Indicated Pertinent Medications maalox, MOM, Theragran, Zofran Pertinent Labs (01/12) Na 132 Nutritional Hx/Data Height 6 ft Height (Calculated Centimeters) 182.9 Current Weight (lbs) 150 lb Weight (Calculated Kilograms) 68.0 Weight (Calculated Grams) 94444.9 [place] Body Weight 178 % [place] Body Weight 84 Body Mass Index (BMI) 20.3 Recent Weight Change No Weight Status Approriate GI Symptoms GI Symptoms None Last BM None noted in EMR Difficult in: None Food Allergies No Cultural/Ethnic/Jew Belief None indicated Usual diet at home Unknown Skin Integrity/Comment: Lacho Garcia, per nursing notes, "area of concern" scar, pink, potential Estimated Nutritional Goals BEE in Kcals: Adj wt of IBW Calories/Kcals/Kg 25-30 kcal/kg using IBW 80.9kg Kcals Calculated ~8376-0591 kcal/day Protein: Adj wt of IBW Protein g/k.8-1 gm/kg using IBW Protein Calculated ~65-80 gm/day Fluid: ml ~2979-2999 ml/day Nutritional Problem 1. Problem Problem Altered nutrition related lab values related to Etiology electrolyte imbalance aeb Signs/Symptoms: Na 132 Intervention/Recommendation Comments 1. Continue regular diet as tolerated by patient. 2. Consider re-checking Na level to determine need for fluid restriction/sodium restriction. Expected Outcomes/Goals Expected Outcomes/Goals PO intake >75% of meals, weight trend toward IBW, nutrition related labs WNL (Na normalizes), improved skin integrity F/U in 3-5 days MR (01/20-) Physician Parameters for PEM Normal Weight % <75% (Severe)
--- NOTE | 2018-01-20 20:41 | Progress Notes ---
DATE: 01/20/2018 Case was discussed with staff of the patient, reviewed records. The patient continues to have episodes of agitation, irritability, confused, isolating, continues to have episodes of anger. Continues to be unpredictable and impulsive. He has been compliant with the medication with no side effects, no sedation, no nausea, no extrapyramidal symptoms. We will continue to work with the patient in group therapy, milieu therapy, and adjust the medications as needed. JOB# [id number]
[2018-01-20] MEDS: Hydrocodone/APAP 10 mg/325 mg Tab PO PRN (21:32)
[2018-01-21] MEDS: Hydrocodone/APAP 5mg/325mg Tab PO PRN (01:33)
--- NOTE | 2018-01-21 09:13 | General Progress Note ---
Subjective - Review of Systems Events since last encounter: patient confused irritable, agitated at times per staff no signs of pain Objective - Results Result Diagrams: 01/12/18 16:59 01/12/18 16:59 Recent Labs: Laboratory Last Values WBC 7.8 Th/cmm (4.8-10.8) 01/12/18 16:59 RBC 4.08 Mil/cmm (4.30-5.70) L 01/12/18 16:59 Hgb 12.8 gm/dL (12-16) 01/12/18 16:59 Hct 37.2 % (41.0-60) L 01/12/18 16:59 MCV 91.1 fl (80-99) 01/12/18 16:59 MCH 31.3 pg (26.0-30.0) H 01/12/18 16:59 MCHC Differential 34.3 pg (28.0-36.0) 01/12/18 16:59 RDW 13.2 % (11.5-20.0) 01/12/18 16:59 Plt Count 280 Th/cmm (150-400) 01/12/18 16:59 MPV 7.1 fl 01/12/18 16:59 Neutrophils % 63.4 % (40.0-80.0) 01/12/18 16:59 Lymphocytes % 28.3 % (20.0-50.0) 01/12/18 16:59 Monocytes % 7.1 % (2.0-10.0) 01/12/18 16:59 Eosinophils % 0.9 % (0.0-5.0) 01/12/18 16:59 Basophils % 0.3 % (0.0-2.0) 01/12/18 16:59 Sodium 132 mEq/L (136-145) L 01/12/18 16:59 Potassium 3.9 mEq/L (3.5-5.1) 01/12/18 16:59 Chloride 100 mEq/L (98-107) 01/12/18 16:59 Carbon Dioxide 27.2 mEq/L (21.0-31.0) 01/12/18 16:59 Anion Gap 8.7 (7.0-16.0) 01/12/18 16:59 BUN 14 mg/dL (7-25) 01/12/18 16:59 Creatinine 0.8 mg/dL (0.7-1.3) 01/12/18 16:59 Est GFR ( Amer) > 60.0 ml/min (>90) 01/12/18 16:59 Est GFR (Non-Af Amer) > 60.0 ml/min 01/12/18 16:59 BUN/Creatinine Ratio 17.5 01/12/18 16:59 Glucose 83 mg/dL (70-105) 01/12/18 16:59 Calcium 9.4 mg/dL (8.6-10.3) 01/12/18 16:59 - Physical Exam Vitals and I&O: Vital Signs Temp 97.9 F 01/21/18 06:20 Pulse 64 01/21/18 06:20 Resp 20 01/21/18 06:20 BP 115/73 01/21/18 06:20 Pulse Ox 100 01/21/18 06:20 Intake & Output 01/20/18 01/21/18 01/21/18 18:59 06:59 18:59 Intake Total 120 120 Balance 120 120 Intake: Oral 120 120 Other: # Voids 3 3 # Bowel Movements 0 0 Active Medications: Current Medications Acetaminophen (Tylenol) 650 mg PO Q4HR PRN PRN Reason: Mild Pain / Temp above 100 Stop: 03/13/18 20:03 Last Admin: 01/20/18 05:20 Dose: 650 mg Acetaminophen/Hydrocodone Bitart ([place] 10 Mg/325 Mg) 1 tab PO Q6H PRN PRN Reason: Severe Pain Stop: 03/13/18 20:06 Last Admin: 01/20/18 21:32 Dose: 1 tab Acetaminophen/Hydrocodone Bitart ([place] 5mg/325mg) 1 tab PO Q6H PRN PRN Reason: moderate pain Stop: 03/13/18 20:06 Last Admin: 01/21/18 01:33 Dose: 1 tab Al Hydrox/Mg Hydrox/Simethicone (Maalox) 30 ml PO Q4HR PRN PRN Reason: GI DISTRESS Stop: 03/13/18 20:03 Albuterol Sulfate (Albuterol 2.5mg/3ml Neb Ud) 2.5 mg HHN Q6HR PRN PRN Reason: sob Stop: 03/13/18 20:06 Enoxaparin Sodium (Lovenox) 30 mg SUBQ Q12HR KB Stop: 03/14/18 10:59 Last Admin: 01/20/18 21:32 Dose: 30 mg Lorazepam (Ativan) 0.5 mg PO Q4HR PRN; Protocol PRN Reason: Anxiety/agitation Stop: 02/11/18 20:03 Last Admin: 01/21/18 08:10 Dose: 0.5 mg Magnesium Hydroxide (Milk Of Magnesia) 30 ml PO HS PRN PRN Reason: Constipation Multivitamins/Vitamin C (Theragran) 1 tab PO DAILY KB Stop: 03/14/18 08:59 Last Admin: 01/20/18 09:26 Dose: Not Given Ondansetron HCl (Zofran Odt) 4 mg PO Q6HR PRN PRN Reason: nausea and vomiting Stop: 03/13/18 20:06 Risperidone (Risperdal) 1 mg PO BID KB; Protocol Stop: 03/17/18 08:59 Last Admin: 01/21/18 08:10 Dose: 1 mg Tramadol HCl (Ultram) 50 mg PO Q6H PRN PRN Reason: pain Stop: 03/13/18 20:06 Last Admin: 01/17/18 18:36 Dose: 50 mg Zolpidem Tartrate (Ambien) 5 mg PO HS PRN PRN Reason: Insomnia Stop: 03/13/18 20:03 Last Admin: 01/19/18 21:58 Dose: 5 mg General: No acute distress HEENT: Atraumatic Neck: Supple, JVD Cardiovascular: Regular rate, Normal S1, Normal S2 Lungs: Clear to auscultation Abdomen: Bowel sounds Assessment/Plan - Plan Plan: as per psych Nutritional Asmnt/Malnutr-PDOC - Dietary Evaluation Malnutrition Findings (Please click <Entered> for more info): Nutritional Asmnt/Malnutrition Start: 01/17/18 09: 53 Text: Status: Complete Freq: Protocol: Document 01/17/18 09:53 TRISTON (Rec: 01/17/18 10:04 TRISTON GLASGOW- [email or web address]) Nutritional Asmnt/Malnutrition Patient General Information Nutritional Screening Low Risk Diagnosis Psychosis Pertinent Medical Hx/Surgical Hx anxiety, psychosis, DVT Subjective Information Per nursing ntoes, paient can be unpredictable, aggressive and assaultive. Current Diet Order/ Nutrition Support Regular Patient / S.O Not Indicated Pertinent Medications maalox, MOM, Theragran, Zofran Pertinent Labs (01/12) Na 132 Nutritional Hx/Data Height 1.83 m Height (Calculated Centimeters) 182.9 Current Weight (lbs) 68.039 kg Weight (Calculated Kilograms) 68.0 Weight (Calculated Grams) 50033.9 [place] Body Weight 178 % [place] Body Weight 84 Body Mass Index (BMI) 20.3 Recent Weight Change No Weight Status Approriate GI Symptoms GI Symptoms None Last BM None noted in EMR Difficult in: None Food Allergies No Cultural/Ethnic/Taoism Belief None indicated Usual diet at home Unknown Skin Integrity/Comment: Lacho Garcia, per nursing notes, "area of concern" scar, pink, potential Estimated Nutritional Goals BEE in Kcals: Adj wt of IBW Calories/Kcals/Kg 25-30 kcal/kg using IBW 80.9kg Kcals Calculated ~7930-7740 kcal/day Protein: Adj wt of IBW Protein g/k.8-1 gm/kg using IBW Protein Calculated ~65-80 gm/day Fluid: ml ~8555-8795 ml/day Nutritional Problem 1. Problem Problem Altered nutrition related lab values related to Etiology electrolyte imbalance aeb Signs/Symptoms: Na 132 Intervention/Recommendation Comments 1. Continue regular diet as tolerated by patient. 2. Consider re-checking Na level to determine need for fluid restriction/sodium restriction. Expected Outcomes/Goals Expected Outcomes/Goals PO intake >75% of meals, weight trend toward IBW, nutrition related labs WNL (Na normalizes), improved skin integrity F/U in 3-5 days MR (01/20-) Physician Parameters for PEM Normal Weight % <75% (Severe)
[2018-01-21] MEDS: Enoxaparin 30 mg/0.3 mL 0.3mL Syr SUBQ SCH ×2 (10:06→20:13)
[2018-01-21] MEDS: Multivitamin Tab PO SCH (10:06)
[2018-01-21] MEDS: Hydrocodone/APAP 10 mg/325 mg Tab PO PRN ×2 (11:06→18:59)
[2018-01-22] MEDS: Enoxaparin 30 mg/0.3 mL 0.3mL Syr SUBQ SCH ×2 (09:53→20:19)
[2018-01-22] MEDS: Multivitamin Tab PO SCH (09:53)
[2018-01-22] MEDS: Hydrocodone/APAP 5mg/325mg Tab PO PRN (11:58)
--- NOTE | 2018-01-22 16:23 | General Progress Note ---
Subjective - Review of Systems Subjective: Pt. remains agitated, reports no pain Objective - Results Result Diagrams: 01/12/18 16:59 01/12/18 16:59 Recent Labs: Laboratory Last Values WBC 7.8 Th/cmm (4.8-10.8) 01/12/18 16:59 RBC 4.08 Mil/cmm (4.30-5.70) L 01/12/18 16:59 Hgb 12.8 gm/dL (12-16) 01/12/18 16:59 Hct 37.2 % (41.0-60) L 01/12/18 16:59 MCV 91.1 fl (80-99) 01/12/18 16:59 MCH 31.3 pg (26.0-30.0) H 01/12/18 16:59 MCHC Differential 34.3 pg (28.0-36.0) 01/12/18 16:59 RDW 13.2 % (11.5-20.0) 01/12/18 16:59 Plt Count 280 Th/cmm (150-400) 01/12/18 16:59 MPV 7.1 fl 01/12/18 16:59 Neutrophils % 63.4 % (40.0-80.0) 01/12/18 16:59 Lymphocytes % 28.3 % (20.0-50.0) 01/12/18 16:59 Monocytes % 7.1 % (2.0-10.0) 01/12/18 16:59 Eosinophils % 0.9 % (0.0-5.0) 01/12/18 16:59 Basophils % 0.3 % (0.0-2.0) 01/12/18 16:59 Sodium 132 mEq/L (136-145) L 01/12/18 16:59 Potassium 3.9 mEq/L (3.5-5.1) 01/12/18 16:59 Chloride 100 mEq/L (98-107) 01/12/18 16:59 Carbon Dioxide 27.2 mEq/L (21.0-31.0) 01/12/18 16:59 Anion Gap 8.7 (7.0-16.0) 01/12/18 16:59 BUN 14 mg/dL (7-25) 01/12/18 16:59 Creatinine 0.8 mg/dL (0.7-1.3) 01/12/18 16:59 Est GFR ( Amer) > 60.0 ml/min (>90) 01/12/18 16:59 Est GFR (Non-Af Amer) > 60.0 ml/min 01/12/18 16:59 BUN/Creatinine Ratio 17.5 01/12/18 16:59 Glucose 83 mg/dL (70-105) 01/12/18 16:59 Calcium 9.4 mg/dL (8.6-10.3) 01/12/18 16:59 - Physical Exam Vitals and I&O: Vital Signs Temp 98.0 F 01/22/18 14:00 Pulse 80 01/22/18 14:17 Resp 18 01/22/18 14:17 BP 121/67 01/22/18 14:00 Pulse Ox 95 01/22/18 14:17 Intake & Output 01/21/18 01/22/18 01/22/18 18:59 06:59 18:59 Intake Total 1450 240 Balance 1450 240 Intake: Oral 1450 240 Other: # Voids 3 4 # Bowel Movements 0 0 Active Medications: Current Medications Acetaminophen (Tylenol) 650 mg PO Q4HR PRN PRN Reason: Mild Pain / Temp above 100 Stop: 03/13/18 20:03 Last Admin: 01/21/18 23:00 Dose: 650 mg Acetaminophen/Hydrocodone Bitart ([place] 10 Mg/325 Mg) 1 tab PO Q6H PRN PRN Reason: Severe Pain Stop: 03/13/18 20:06 Last Admin: 01/21/18 18:59 Dose: 1 tab Acetaminophen/Hydrocodone Bitart ([place] 5mg/325mg) 1 tab PO Q6H PRN PRN Reason: moderate pain Stop: 03/13/18 20:06 Last Admin: 01/22/18 11:58 Dose: 1 tab Al Hydrox/Mg Hydrox/Simethicone (Maalox) 30 ml PO Q4HR PRN PRN Reason: GI DISTRESS Stop: 03/13/18 20:03 Albuterol Sulfate (Albuterol 2.5mg/3ml Neb Ud) 2.5 mg HHN Q6HR PRN PRN Reason: sob Stop: 03/13/18 20:06 Enoxaparin Sodium (Lovenox) 30 mg SUBQ Q12HR KB Stop: 03/14/18 10:59 Last Admin: 01/22/18 09:53 Dose: 30 mg Lorazepam (Ativan) 0.5 mg PO Q4HR PRN; Protocol PRN Reason: Anxiety/agitation Stop: 02/11/18 20:03 Last Admin: 01/21/18 17:33 Dose: 0.5 mg Magnesium Hydroxide (Milk Of Magnesia) 30 ml PO HS PRN PRN Reason: Constipation Multivitamins/Vitamin C (Theragran) 1 tab PO DAILY KB Stop: 03/14/18 08:59 Last Admin: 01/22/18 09:53 Dose: 1 tab Ondansetron HCl (Zofran Odt) 4 mg PO Q6HR PRN PRN Reason: nausea and vomiting Stop: 03/13/18 20:06 Risperidone (Risperdal) 2 mg PO BID KB; Protocol Stop: 03/23/18 08:59 Last Admin: 01/22/18 09:54 Dose: 2 mg Tramadol HCl (Ultram) 50 mg PO Q6H PRN PRN Reason: pain Stop: 03/13/18 20:06 Last Admin: 01/17/18 18:36 Dose: 50 mg Zolpidem Tartrate (Ambien) 5 mg PO HS PRN PRN Reason: Insomnia Stop: 03/13/18 20:03 Last Admin: 01/21/18 20:14 Dose: 5 mg General: No acute distress HEENT: Atraumatic Neck: Supple, JVD Cardiovascular: Regular rate, Normal S1, Normal S2 Lungs: Clear to auscultation Abdomen: Bowel sounds Assessment/Plan - Assessment Assessment: OA psychosis - Plan Plan: as per psych CPM Nutritional Asmnt/Malnutr-PDOC - Dietary Evaluation Malnutrition Findings (Please click <Entered> for more info): Nutritional Asmnt/Malnutrition Start: 01/17/18 09: 53 Text: Status: Complete Freq: Protocol: Document 01/17/18 09:53 TRISTON (Rec: 01/17/18 10:04 TRISTON [id number]) Nutritional Asmnt/Malnutrition Patient General Information Nutritional Screening Low Risk Diagnosis Psychosis Pertinent Medical Hx/Surgical Hx anxiety, psychosis, DVT Subjective Information Per nursing ntoes, paient can be unpredictable, aggressive and assaultive. Current Diet Order/ Nutrition Support Regular Patient / S.O Not Indicated Pertinent Medications maalox, MOM, Theragran, Zofran Pertinent Labs (01/12) Na 132 Nutritional Hx/Data Height 1.83 m Height (Calculated Centimeters) 182.9 Current Weight (lbs) 68.039 kg Weight (Calculated Kilograms) 68.0 Weight (Calculated Grams) 20523.9 [place] Body Weight 178 % [place] Body Weight 84 Body Mass Index (BMI) 20.3 Recent Weight Change No Weight Status Approriate GI Symptoms GI Symptoms None Last BM None noted in EMR Difficult in: None Food Allergies No Cultural/Ethnic/Hindu Belief None indicated Usual diet at home Unknown Skin Integrity/Comment: Lacho Garcia, per nursing notes, "area of concern" scar, pink, potential Estimated Nutritional Goals BEE in Kcals: Adj wt of IBW Calories/Kcals/Kg 25-30 kcal/kg using IBW 80.9kg Kcals Calculated ~6761-1490 kcal/day Protein: Adj wt of IBW Protein g/k.8-1 gm/kg using IBW Protein Calculated ~65-80 gm/day Fluid: ml ~2459-1382 ml/day Nutritional Problem 1. Problem Problem Altered nutrition related lab values related to Etiology electrolyte imbalance aeb Signs/Symptoms: Na 132 Intervention/Recommendation Comments 1. Continue regular diet as tolerated by patient. 2. Consider re-checking Na level to determine need for fluid restriction/sodium restriction. Expected Outcomes/Goals Expected Outcomes/Goals PO intake >75% of meals, weight trend toward IBW, nutrition related labs WNL (Na normalizes), improved skin integrity F/U in 3-5 days MR (01/20-) Physician Parameters for PEM Normal Weight % <75% (Severe)
--- NOTE | 2018-01-22 21:42 | Progress Notes ---
DATE: 01/22/2018 SUBJECTIVE: Chart reviewed and the patient interviewed. Also discussed the patient's condition with the staff and reviewed records and labs. The patient remains severely angry and in irritable mood. The patient also still has outbursts and he still gets easily agitated and angry with staff and with peers. Also, he is still talking to himself. The patient also is still easily agitated. Otherwise, the patient is having severe mood swings and he is still having a lot of irritability. ASSESSMENT: The patient is still psychotic. TREATMENT PLAN: We will continue monitoring his behavior and his condition closely. Also, we will increase Risperdal to 2 mg twice a day. Also, continue to work on behavioral modification and is in irritable mood and poor impulse control. JOB# [id number]
[2018-01-23] MEDS: Enoxaparin 30 mg/0.3 mL 0.3mL Syr SUBQ SCH ×2 (08:41→20:27)
[2018-01-23] MEDS: Multivitamin Tab PO SCH (08:42)
[2018-01-23] MEDS: Hydrocodone/APAP 5mg/325mg Tab PO PRN (14:58)
[2018-01-24] MEDS: Hydrocodone/APAP 10 mg/325 mg Tab PO PRN (00:34)
[2018-01-24] MEDS: Enoxaparin 30 mg/0.3 mL 0.3mL Syr SUBQ SCH ×2 (08:58→20:47)
[2018-01-24] MEDS: Multivitamin Tab PO SCH (08:58)
[2018-01-24] MEDS: Hydrocodone/APAP 5mg/325mg Tab PO PRN (13:54)
--- NOTE | 2018-01-24 21:57 | Progress Notes ---
DATE: 01/24/2018 SUBJECTIVE: The patient was seen in the hallway. The patient still has episodes of irritability and appears to be guarded, easily gets agitated and appears to be delusional. Otherwise, the patient is in no acute distress. OBJECTIVE: VITAL SIGNS: Temperature of 97.8, heart rate of 85, blood pressure of 124/75, respirations 20, 97% on room air. HEENT: Head is atraumatic and normocephalic. Eyes: Bilateral conjunctivae are clear. Bilateral pupils are equally round and reactive. NECK: Supple. No JVD. CARDIOVASCULAR: S1 and S2 without murmur. PULMONARY: Clear to auscultation. GASTROINTESTINAL: Soft and nontender without guarding. Positive bowel sounds. MUSCULOSKELETAL: No clubbing. No cyanosis noted. ASSESSMENT: 1. Psychosis. 2. Osteoarthritis. 3. Insomnia. PLAN: We will continue to keep the patient inpatient to [facility] mental health unit. We will follow up with a psychiatrist to monitor the patient's condition and behavior. Treatment plans were discussed with the patient's nurse. Treatment plans were discussed with Dr. Devlin. JOB# [id number]
--- NOTE | 2018-01-24 23:47 | Progress Notes ---
DATE: 01/24/[address] Guo. Case was discussed with staff of the patient, reviewed records. He is a well-known case to me as I have seen him before covering for Dr. Guo. Continues to be in very angry, irritable, mood. Symptoms have anger outbursts and easily agitated. He is at times soft himself, easily agitated. He is compliant with the medication with no side effects, no sedation, no nausea, no extrapyramidal symptoms. Risperdal was increased to 2 mg twice a day and that was 01/22/2018 and we will continue outpatient group therapy, milieu therapy, and adjust medication as needed. JOB# [id number]
[2018-01-25] MEDS: Hydrocodone/APAP 10 mg/325 mg Tab PO PRN (00:14)
[2018-01-25] MEDS: Multivitamin Tab PO SCH (08:55)
[2018-01-25] MEDS: Hydrocodone/APAP 5mg/325mg Tab PO PRN ×2 (08:56→17:25)
[2018-01-25] MEDS: Enoxaparin 30 mg/0.3 mL 0.3mL Syr SUBQ SCH ×2 (08:56→20:29)
--- NOTE | 2018-01-25 11:11 | General Progress Note ---
Subjective - Review of Systems Events since last encounter: patient awake still irritable delusional Subjective: Pt. remains agitated, reports no pain Objective - Results Result Diagrams: 01/12/18 16:59 01/12/18 16:59 Recent Labs: Laboratory Last Values WBC 7.8 Th/cmm (4.8-10.8) 01/12/18 16:59 RBC 4.08 Mil/cmm (4.30-5.70) L 01/12/18 16:59 Hgb 12.8 gm/dL (12-16) 01/12/18 16:59 Hct 37.2 % (41.0-60) L 01/12/18 16:59 MCV 91.1 fl (80-99) 01/12/18 16:59 MCH 31.3 pg (26.0-30.0) H 01/12/18 16:59 MCHC Differential 34.3 pg (28.0-36.0) 01/12/18 16:59 RDW 13.2 % (11.5-20.0) 01/12/18 16:59 Plt Count 280 Th/cmm (150-400) 01/12/18 16:59 MPV 7.1 fl 01/12/18 16:59 Neutrophils % 63.4 % (40.0-80.0) 01/12/18 16:59 Lymphocytes % 28.3 % (20.0-50.0) 01/12/18 16:59 Monocytes % 7.1 % (2.0-10.0) 01/12/18 16:59 Eosinophils % 0.9 % (0.0-5.0) 01/12/18 16:59 Basophils % 0.3 % (0.0-2.0) 01/12/18 16:59 Sodium 132 mEq/L (136-145) L 01/12/18 16:59 Potassium 3.9 mEq/L (3.5-5.1) 01/12/18 16:59 Chloride 100 mEq/L (98-107) 01/12/18 16:59 Carbon Dioxide 27.2 mEq/L (21.0-31.0) 01/12/18 16:59 Anion Gap 8.7 (7.0-16.0) 01/12/18 16:59 BUN 14 mg/dL (7-25) 01/12/18 16:59 Creatinine 0.8 mg/dL (0.7-1.3) 01/12/18 16:59 Est GFR ( Amer) > 60.0 ml/min (>90) 01/12/18 16:59 Est GFR (Non-Af Amer) > 60.0 ml/min 01/12/18 16:59 BUN/Creatinine Ratio 17.5 01/12/18 16:59 Glucose 83 mg/dL (70-105) 01/12/18 16:59 Calcium 9.4 mg/dL (8.6-10.3) 01/12/18 16:59 - Physical Exam Vitals and I&O: Vital Signs Temp 98.3 F 01/25/18 04:38 Pulse 55 01/25/18 04:38 Resp 19 01/25/18 04:38 BP 128/76 01/25/18 04:38 Pulse Ox 98 01/25/18 04:38 Intake & Output 01/24/18 01/25/18 01/25/18 18:59 06:59 18:59 Intake Total 2180 Balance 2180 Intake: Oral 2180 Other: # Voids 2 # Bowel Movements 0 Active Medications: Current Medications Acetaminophen (Tylenol) 650 mg PO Q4HR PRN PRN Reason: Mild Pain / Temp above 100 Stop: 03/13/18 20:03 Last Admin: 01/23/18 20:27 Dose: 650 mg Acetaminophen/Hydrocodone Bitart ([place] 10 Mg/325 Mg) 1 tab PO Q6H PRN PRN Reason: Severe Pain Stop: 03/13/18 20:06 Last Admin: 01/25/18 00:14 Dose: 1 tab Acetaminophen/Hydrocodone Bitart ([place] 5mg/325mg) 1 tab PO Q6H PRN PRN Reason: moderate pain Stop: 03/13/18 20:06 Last Admin: 01/25/18 08:56 Dose: 1 tab Al Hydrox/Mg Hydrox/Simethicone (Maalox) 30 ml PO Q4HR PRN PRN Reason: GI DISTRESS Stop: 03/13/18 20:03 Albuterol Sulfate (Albuterol 2.5mg/3ml Neb Ud) 2.5 mg HHN Q6HR PRN PRN Reason: sob Stop: 03/13/18 20:06 Enoxaparin Sodium (Lovenox) 30 mg SUBQ Q12HR KB Stop: 03/14/18 10:59 Last Admin: 01/25/18 08:56 Dose: 30 mg Lorazepam (Ativan) 0.5 mg PO Q4HR PRN; Protocol PRN Reason: Anxiety/agitation Stop: 02/11/18 20:03 Last Admin: 01/23/18 20:26 Dose: 0.5 mg Magnesium Hydroxide (Milk Of Magnesia) 30 ml PO HS PRN PRN Reason: Constipation Multivitamins/Vitamin C (Theragran) 1 tab PO DAILY KB Stop: 03/14/18 08:59 Last Admin: 01/25/18 08:55 Dose: 1 tab Ondansetron HCl (Zofran Odt) 4 mg PO Q6HR PRN PRN Reason: nausea and vomiting Stop: 03/13/18 20:06 Risperidone (Risperdal) 2 mg PO BID KB; Protocol Stop: 03/23/18 08:59 Last Admin: 01/25/18 08:55 Dose: 2 mg Tramadol HCl (Ultram) 50 mg PO Q6H PRN PRN Reason: pain Stop: 03/13/18 20:06 Last Admin: 01/17/18 18:36 Dose: 50 mg Zolpidem Tartrate (Ambien) 5 mg PO HS PRN PRN Reason: Insomnia Stop: 03/13/18 20:03 Last Admin: 01/24/18 20:47 Dose: 5 mg General: No acute distress HEENT: Atraumatic Neck: Supple, JVD Cardiovascular: Regular rate, Normal S1, Normal S2 Lungs: Clear to auscultation Abdomen: Bowel sounds Assessment/Plan - Problem List Patient Problems: All Active Problems Insomnia (Acute) G47.00 Osteoarthritis (Acute) M19.90 Psychosis (Acute) F29 - Assessment Assessment: OA psychosis - Plan Plan: as per psych CPM Nutritional Asmnt/Malnutr-PDOC - Dietary Evaluation Malnutrition Findings (Please click <Entered> for more info): Nutritional Asmnt/Malnutrition Start: 01/17/18 09: 53 Text: Status: Complete Freq: Protocol: Document 01/17/18 09:53 TRISTON (Rec: 01/17/18 10:04 TRISTON [email or web address] FN) Nutritional Asmnt/Malnutrition Patient General Information Nutritional Screening Low Risk Diagnosis Psychosis Pertinent Medical Hx/Surgical Hx anxiety, psychosis, DVT Subjective Information Per nursing ntoes, paient can be unpredictable, aggressive and assaultive. Current Diet Order/ Nutrition Support Regular Patient / S.O Not Indicated Pertinent Medications maalox, MOM, Theragran, Zofran Pertinent Labs (01/12) Na 132 Nutritional Hx/Data Height 1.83 m Height (Calculated Centimeters) 182.9 Current Weight (lbs) 68.039 kg Weight (Calculated Kilograms) 68.0 Weight (Calculated Grams) 76216.9 [place] Body Weight 178 % [place] Body Weight 84 Body Mass Index (BMI) 20.3 Recent Weight Change No Weight Status Approriate GI Symptoms GI Symptoms None Last BM None noted in EMR Difficult in: None Food Allergies No Cultural/Ethnic/Caodaism Belief None indicated Usual diet at home Unknown Skin Integrity/Comment: Lacho Garcia, per nursing notes, "area of concern" scar, pink, potential Estimated Nutritional Goals BEE in Kcals: Adj wt of IBW Calories/Kcals/Kg 25-30 kcal/kg using IBW 80.9kg Kcals Calculated ~5413-8262 kcal/day Protein: Adj wt of IBW Protein g/k.8-1 gm/kg using IBW Protein Calculated ~65-80 gm/day Fluid: ml ~6952-3965 ml/day Nutritional Problem 1. Problem Problem Altered nutrition related lab values related to Etiology electrolyte imbalance aeb Signs/Symptoms: Na 132 Intervention/Recommendation Comments 1. Continue regular diet as tolerated by patient. 2. Consider re-checking Na level to determine need for fluid restriction/sodium restriction. Expected Outcomes/Goals Expected Outcomes/Goals PO intake >75% of meals, weight trend toward IBW, nutrition related labs WNL (Na normalizes), improved skin integrity F/U in 3-5 days MR (01/20-) Physician Parameters for PEM Normal Weight % <75% (Severe)
--- NOTE | 2018-01-25 21:28 | Progress Notes ---
DATE: 01/25/[address] Guo. Case was discussed with staff of the patient, reviewed records. The patient continues to be irritable, continues to be [place]. Continues to have anger outburst. Continues to talk to himself, easily. He is compliant with the medication with no side effects, no sedation, or nausea. Tolerating the increase of Risperdal. We will continue to work with the patient in group therapy, milieu therapy, and adjust the medications as needed. JOB# [id number]
[2018-01-26] MEDS: Hydrocodone/APAP 10 mg/325 mg Tab PO PRN (02:25)
[2018-01-26] MEDS: Multivitamin Tab PO SCH (09:09)
[2018-01-26] MEDS: Enoxaparin 30 mg/0.3 mL 0.3mL Syr SUBQ SCH ×2 (09:10→20:52)
--- NOTE | 2018-01-26 13:58 | Internal Medicine Prog Note ---
Internal Medicine Subjective - Subjective Service Date: 01/26/18 Patient is:: awake, verbal Per staff patient has:: tolerating meds Internal Medicine Objective - Results Result Diagrams: 01/12/18 16:59 01/12/18 16:59 Recent Labs: Laboratory Last Values WBC 7.8 Th/cmm (4.8-10.8) 01/12/18 16:59 RBC 4.08 Mil/cmm (4.30-5.70) L 01/12/18 16:59 Hgb 12.8 gm/dL (12-16) 01/12/18 16:59 Hct 37.2 % (41.0-60) L 01/12/18 16:59 MCV 91.1 fl (80-99) 01/12/18 16:59 MCH 31.3 pg (26.0-30.0) H 01/12/18 16:59 MCHC Differential 34.3 pg (28.0-36.0) 01/12/18 16:59 RDW 13.2 % (11.5-20.0) 01/12/18 16:59 Plt Count 280 Th/cmm (150-400) 01/12/18 16:59 MPV 7.1 fl 01/12/18 16:59 Neutrophils % 63.4 % (40.0-80.0) 01/12/18 16:59 Lymphocytes % 28.3 % (20.0-50.0) 01/12/18 16:59 Monocytes % 7.1 % (2.0-10.0) 01/12/18 16:59 Eosinophils % 0.9 % (0.0-5.0) 01/12/18 16:59 Basophils % 0.3 % (0.0-2.0) 01/12/18 16:59 Sodium 132 mEq/L (136-145) L 01/12/18 16:59 Potassium 3.9 mEq/L (3.5-5.1) 01/12/18 16:59 Chloride 100 mEq/L (98-107) 01/12/18 16:59 Carbon Dioxide 27.2 mEq/L (21.0-31.0) 01/12/18 16:59 Anion Gap 8.7 (7.0-16.0) 01/12/18 16:59 BUN 14 mg/dL (7-25) 01/12/18 16:59 Creatinine 0.8 mg/dL (0.7-1.3) 01/12/18 16:59 Est GFR ( Amer) > 60.0 ml/min (>90) 01/12/18 16:59 Est GFR (Non-Af Amer) > 60.0 ml/min 01/12/18 16:59 BUN/Creatinine Ratio 17.5 01/12/18 16:59 Glucose 83 mg/dL (70-105) 01/12/18 16:59 Calcium 9.4 mg/dL (8.6-10.3) 01/12/18 16:59 - Physical Exam Vitals and I&O: Vital Signs Temp 97.6 F 01/26/18 04:30 Pulse 58 01/26/18 07:23 Resp 14 01/26/18 07:23 BP 102/73 01/26/18 04:30 Pulse Ox 97 01/26/18 07:23 Intake & Output 01/25/18 01/26/18 01/26/18 18:59 06:59 18:59 Intake Total 480 Balance 480 Intake: Oral 480 Other: # Voids 2 Active Medications: Current Medications Acetaminophen (Tylenol) 650 mg PO Q4HR PRN PRN Reason: Mild Pain / Temp above 100 Stop: 03/13/18 20:03 Last Admin: 01/23/18 20:27 Dose: 650 mg Al Hydrox/Mg Hydrox/Simethicone (Maalox) 30 ml PO Q4HR PRN PRN Reason: GI DISTRESS Stop: 03/13/18 20:03 Albuterol Sulfate (Albuterol 2.5mg/3ml Neb Ud) 2.5 mg HHN Q6HR PRN PRN Reason: sob Stop: 03/13/18 20:06 Enoxaparin Sodium (Lovenox) 30 mg SUBQ Q12HR KB Stop: 03/14/18 10:59 Last Admin: 01/26/18 09:10 Dose: 30 mg Magnesium Hydroxide (Milk Of Magnesia) 30 ml PO HS PRN PRN Reason: Constipation Multivitamins/Vitamin C (Theragran) 1 tab PO DAILY KB Stop: 03/14/18 08:59 Last Admin: 01/26/18 09:09 Dose: 1 tab Ondansetron HCl (Zofran Odt) 4 mg PO Q6HR PRN PRN Reason: nausea and vomiting Stop: 03/13/18 20:06 Risperidone (Risperdal) 3 mg PO BID KB; Protocol Stop: 03/27/18 08:59 Last Admin: 01/26/18 09:09 Dose: 3 mg General: alert HEENT: NC/AT, PERRLA Neck: Supple Lungs: CTAB Cardiovascular: RRR, Normal S1, Normal S2, without murmur Abdomen: soft, non-tender, non-distended, positive bowel sound Neurological: alert Internal Medicine Assmt/Plan - Assessment Assessment: oa psychosis - Plan Plan: cpm Nutritional Asmnt/Malnutr-PDOC - Dietary Evaluation Malnutrition Findings (Please click <Entered> for more info): Nutritional Asmnt/Malnutrition Start: 01/17/18 09: 53 Text: Status: Complete Freq: Protocol: Document 01/17/18 09:53 MMULHERN (Rec: 01/17/18 10:04 [email or web address] [id number]) Nutritional Asmnt/Malnutrition Patient General Information Nutritional Screening Low Risk Diagnosis Psychosis Pertinent Medical Hx/Surgical Hx anxiety, psychosis, DVT Subjective Information Per nursing ntoes, paient can be unpredictable, aggressive and assaultive. Current Diet Order/ Nutrition Support Regular Patient / S.O Not Indicated Pertinent Medications maalox, MOM, Theragran, Zofran Pertinent Labs (01/12) Na 132 Nutritional Hx/Data Height 6 ft Height (Calculated Centimeters) 182.9 Current Weight (lbs) 150 lb Weight (Calculated Kilograms) 68.0 Weight (Calculated Grams) 89837.9 [place] Body Weight 178 % [place] Body Weight 84 Body Mass Index (BMI) 20.3 Recent Weight Change No Weight Status Approriate GI Symptoms GI Symptoms None Last BM None noted in EMR Difficult in: None Food Allergies No Cultural/Ethnic/Yarsanism Belief None indicated Usual diet at home Unknown Skin Integrity/Comment: Lacho 20, per nursing notes, "area of concern" scar, pink, potential Estimated Nutritional Goals BEE in Kcals: Adj wt of IBW Calories/Kcals/Kg 25-30 kcal/kg using IBW 80.9kg Kcals Calculated ~8801-4846 kcal/day Protein: Adj wt of IBW Protein g/k.8-1 gm/kg using IBW Protein Calculated ~65-80 gm/day Fluid: ml ~9620-8690 ml/day Nutritional Problem 1. Problem Problem Altered nutrition related lab values related to Etiology electrolyte imbalance aeb Signs/Symptoms: Na 132 Intervention/Recommendation Comments 1. Continue regular diet as tolerated by patient. 2. Consider re-checking Na level to determine need for fluid restriction/sodium restriction. Expected Outcomes/Goals Expected Outcomes/Goals PO intake >75% of meals, weight trend toward IBW, nutrition related labs WNL (Na normalizes), improved skin integrity F/U in 3-5 days MR (01/20-) Physician Parameters for PEM Normal Weight % <75% (Severe)
[2018-01-26] MEDS ORDERED: Hydrocodone/APAP 10 mg/325 mg Tab PO PRN (19:27)
[2018-01-26] MEDS ORDERED: Hydrocodone/APAP 5mg/325mg Tab PO PRN (19:29)
[2018-01-27] MEDS: Enoxaparin 30 mg/0.3 mL 0.3mL Syr SUBQ SCH (08:41)
[2018-01-27] MEDS: Multivitamin Tab PO SCH (08:41)
--- NOTE | 2018-01-27 12:48 | Internal Medicine Prog Note ---
Internal Medicine Subjective - Subjective Service Date: 01/27/18 Patient is:: awake, verbal Per staff patient has:: tolerating meds Internal Medicine Objective - Results Result Diagrams: 01/12/18 16:59 01/12/18 16:59 Recent Labs: Laboratory Last Values WBC 7.8 Th/cmm (4.8-10.8) 01/12/18 16:59 RBC 4.08 Mil/cmm (4.30-5.70) L 01/12/18 16:59 Hgb 12.8 gm/dL (12-16) 01/12/18 16:59 Hct 37.2 % (41.0-60) L 01/12/18 16:59 MCV 91.1 fl (80-99) 01/12/18 16:59 MCH 31.3 pg (26.0-30.0) H 01/12/18 16:59 MCHC Differential 34.3 pg (28.0-36.0) 01/12/18 16:59 RDW 13.2 % (11.5-20.0) 01/12/18 16:59 Plt Count 280 Th/cmm (150-400) 01/12/18 16:59 MPV 7.1 fl 01/12/18 16:59 Neutrophils % 63.4 % (40.0-80.0) 01/12/18 16:59 Lymphocytes % 28.3 % (20.0-50.0) 01/12/18 16:59 Monocytes % 7.1 % (2.0-10.0) 01/12/18 16:59 Eosinophils % 0.9 % (0.0-5.0) 01/12/18 16:59 Basophils % 0.3 % (0.0-2.0) 01/12/18 16:59 Sodium 132 mEq/L (136-145) L 01/12/18 16:59 Potassium 3.9 mEq/L (3.5-5.1) 01/12/18 16:59 Chloride 100 mEq/L (98-107) 01/12/18 16:59 Carbon Dioxide 27.2 mEq/L (21.0-31.0) 01/12/18 16:59 Anion Gap 8.7 (7.0-16.0) 01/12/18 16:59 BUN 14 mg/dL (7-25) 01/12/18 16:59 Creatinine 0.8 mg/dL (0.7-1.3) 01/12/18 16:59 Est GFR ( Amer) > 60.0 ml/min (>90) 01/12/18 16:59 Est GFR (Non-Af Amer) > 60.0 ml/min 01/12/18 16:59 BUN/Creatinine Ratio 17.5 01/12/18 16:59 Glucose 83 mg/dL (70-105) 01/12/18 16:59 Calcium 9.4 mg/dL (8.6-10.3) 01/12/18 16:59 - Physical Exam Vitals and I&O: Vital Signs Temp 97.3 F 01/27/18 05:48 Pulse 66 01/27/18 07:10 Resp 18 01/27/18 07:59 BP 127/75 01/27/18 05:48 Pulse Ox 96 01/27/18 07:10 Intake & Output 01/26/18 01/27/18 01/27/18 18:59 06:59 18:59 Intake Total 1200 Balance 1200 Intake: Oral 1200 Other: # Voids 4 Active Medications: Current Medications Acetaminophen (Tylenol) 650 mg PO Q4HR PRN PRN Reason: Mild Pain / Temp above 100 Stop: 03/13/18 20:03 Last Admin: 01/23/18 20:27 Dose: 650 mg Acetaminophen/Hydrocodone Bitart ([place] 10 Mg/325 Mg) 1 tab PO Q6H PRN; Protocol PRN Reason: Pain (Severe) Stop: 03/27/18 19:26 Last Admin: 01/26/18 20:52 Dose: 1 tab Acetaminophen/Hydrocodone Bitart ([place] 5mg/325mg) 1 tab PO Q6H PRN; Protocol PRN Reason: Pain (Moderate) Stop: 03/27/18 19:28 Last Admin: 01/27/18 04:55 Dose: 1 tab Al Hydrox/Mg Hydrox/Simethicone (Maalox) 30 ml PO Q4HR PRN PRN Reason: GI DISTRESS Stop: 03/13/18 20:03 Albuterol Sulfate (Albuterol 2.5mg/3ml Neb Ud) 2.5 mg HHN Q6HR PRN PRN Reason: sob Stop: 03/13/18 20:06 Enoxaparin Sodium (Lovenox) 30 mg SUBQ Q12HR KB Stop: 03/14/18 10:59 Last Admin: 01/27/18 08:41 Dose: 30 mg Lorazepam (Ativan) 0.5 mg PO Q4HR PRN; Protocol PRN Reason: anxiety/agitation Stop: 03/27/18 19:30 Last Admin: 01/26/18 20:51 Dose: 0.5 mg Magnesium Hydroxide (Milk Of Magnesia) 30 ml PO HS PRN PRN Reason: Constipation Multivitamins/Vitamin C (Theragran) 1 tab PO DAILY KB Stop: 03/14/18 08:59 Last Admin: 01/27/18 08:41 Dose: 1 tab Ondansetron HCl (Zofran Odt) 4 mg PO Q6HR PRN PRN Reason: nausea and vomiting Stop: 03/13/18 20:06 Risperidone (Risperdal) 3 mg PO BID KB; Protocol Stop: 03/27/18 08:59 Last Admin: 01/27/18 08:41 Dose: 3 mg General: alert HEENT: NC/AT, PERRLA Neck: Supple Lungs: CTAB Cardiovascular: RRR, Normal S1, Normal S2, without murmur Abdomen: soft, non-tender, non-distended, positive bowel sound Neurological: alert Internal Medicine Assmt/Plan - Assessment Assessment: oa psychosis - Plan Plan: cpm Nutritional Asmnt/Malnutr-PDOC - Dietary Evaluation Malnutrition Findings (Please click <Entered> for more info): Nutritional Asmnt/Malnutrition Start: 01/17/18 09: 53 Text: Status: Complete Freq: Protocol: Document 01/17/18 09:53 TRISTON (Rec: 01/17/18 10:04 TRISTON [id number] [email or web address]) Nutritional Asmnt/Malnutrition Patient General Information Nutritional Screening Low Risk Diagnosis Psychosis Pertinent Medical Hx/Surgical Hx anxiety, psychosis, DVT Subjective Information Per nursing ntoes, paient can be unpredictable, aggressive and assaultive. Current Diet Order/ Nutrition Support Regular Patient / S.O Not Indicated Pertinent Medications maalox, MOM, Theragran, Zofran Pertinent Labs (01/12) Na 132 Nutritional Hx/Data Height 6 ft Height (Calculated Centimeters) 182.9 Current Weight (lbs) 150 lb Weight (Calculated Kilograms) 68.0 Weight (Calculated Grams) 83248.9 [place] Body Weight 178 % [place] Body Weight 84 Body Mass Index (BMI) 20.3 Recent Weight Change No Weight Status Approriate GI Symptoms GI Symptoms None Last BM None noted in EMR Difficult in: None Food Allergies No Cultural/Ethnic/Scientology Belief None indicated Usual diet at home Unknown Skin Integrity/Comment: Lacho Garcia, per nursing notes, "area of concern" scar, pink, potential Estimated Nutritional Goals BEE in Kcals: Adj wt of IBW Calories/Kcals/Kg 25-30 kcal/kg using IBW 80.9kg Kcals Calculated ~5739-9995 kcal/day Protein: Adj wt of IBW Protein g/k.8-1 gm/kg using IBW Protein Calculated ~65-80 gm/day Fluid: ml ~5587-6757 ml/day Nutritional Problem 1. Problem Problem Altered nutrition related lab values related to Etiology electrolyte imbalance aeb Signs/Symptoms: Na 132 Intervention/Recommendation Comments 1. Continue regular diet as tolerated by patient. 2. Consider re-checking Na level to determine need for fluid restriction/sodium restriction. Expected Outcomes/Goals Expected Outcomes/Goals PO intake >75% of meals, weight trend toward IBW, nutrition related labs WNL (Na normalizes), improved skin integrity F/U in 3-5 days MR (01/20-) Physician Parameters for PEM Normal Weight % <75% (Severe)
--- NOTE | 2018-01-27 23:35 | Discharge Summary ---
DATE OF DISCHARGE: 01/27/2018 THE PATIENT'S AGE: 57. SEX: Male. PHYSICIAN: Dr. Guo. FINAL DIAGNOSIS/PRIMARY DIAGNOSIS: Schizoaffective disorder, bipolar type, severe, with psychotic features. REASON FOR HOSPITALIZATION: The patient was admitted to the hospital because of striking out at staff and aggressive behavior in the prison where he was [facility]. The patient also has difficulty following directions and easily agitated. HOSPITAL COURSE: The patient continued to be extremely irritable and agitated. The patient also was restless. The patient also was have difficulty with his mood and needed a lots of redirections. The patient was started on Risperdal and the dose adjusted to 3 mg twice a day. Gradually, the patient's affect was brighter. The patient was not accepted back in [facility] rehab and the patient was accepted in [facility] and he was discharged there. Physical exam of the patient showed no major medical problems. AFTER DISCHARGE PLANS: The patient discharged from the hospital and went to [facility] with plans to follow up there. EXPECTED OUTCOME AFTER DISCHARGE: Guarded unless the patient will be able to follow directions and continued to comply with taking his psych medications. JOB# [id number]
== END 2018-01-27 13:00 | DRG 885 ==
LOC: ER 16:15 → TELE 18:15 → GERO 18:16 → GERO2 18:16
PROVIDERS: ADMIT Psychiatry & Neurology Psychiatry; ATTEND Psychiatry & Neurology Psychiatry
DX: F25.0 Schizoaffective disorder, bipolar type (principal); F23 Brief psychotic disorder; M19.90 Unspecified osteoarthritis, unspecified site; G47.00 Insomnia, unspecified
CPT/HCPCS: 36415-UA; 80048-TC; 85025-TC; 94760; G0410; J1200; J1630; J1650; J2060; Z7610

== ENCOUNTER 2018-03-20 16:25 | Inpatient (IN) | payer MEDICARE, OTHER ==
--- NOTE | 2018-03-20 17:05 | ED Physician Chart ---
ED Chief Complaint/HPI - Patient Information Date Seen:: 03/20/18 Time Seen:: 17:00 Chief Complaint:: agitation History of Present Illness:: 57 yr old male from [facility] for agitation psychosis hx of schizophrenia pt is alert answering some questions Allergies:: Allergies Allergy/AdvReac Type Severity Reaction Status Date / Time No Known Allergies Allergy Verified 01/12/18 16:25 ED Review of Systems - Review of Systems General/Constitutional: No fever Skin: No skin lesions Head: No headache ENT: Earache, No earache Neck: No neck pain Cardio Vascular: No chest pain Pulmonary: No SOB GI: No vomiting G/U: No dysuria Hematopoietic: No bruising Allergic/Immuno: No urticaria Neurological: No syncope Family Medical History - Family Member Mother History Unknown: Yes Ethnicity: Unknown Living Status: Unknown ED Septic Shock - . Is Septic Shock (SBP<90, OR Lactate>4 mmol\L) present?: No ED Reassessment (Disposition) - Reassessment Reassessment Condition:: Unchanged - Diagnosis Diagnosis:: psychosis agitation - Patient Disposition Discharge/Transfer:: Acute Care w/in this hosp Admitted to:: Med/Surg Condition at Disposition:: Stable
[2018-03-20 17:27] LABS: % BASOPHILS 0.4 % (0.0-2.0); % EOSINOPHILS 0.7 % (0.0-5.0); % LYMPHOCYTES 20.5 % (20.0-50.0); % MONOCYTES 9.3 % (2.0-10.0); % NEUTROPHILS 69.1 % (40.0-80.0); EOSINOPHILE ABSOLUTE 0.1 Th/cmm (0.1-0.4); HEMOGLOBIN 13.9 gm/dL (12-16); LYMPHOCYTE ABSOLUTE 1.6 Th/cmm (1.5-3.0); MEAN CELL VOLUME 89.8 fl (80-99); MEAN CORPUSCULAR HEMOGLOBIN 30.4 pg (26.0-30.0); MEAN CORPUSCULAR HGB CONC 33.9 pg (28.0-36.0); MEAN PLATELET VOLUME 7.3 fl; MONOCYTE ABSOLUTE 0.7 Th/cmm (0.3-1.0); NEUTROPHILE ABSOLUTE 5.4 Th/cmm (1.8-8.0); PLATELET COUNT 201 Th/cmm (150-400); RED BLOOD COUNT 4.56 Mil/cmm (4.30-5.70); WHITE BLOOD COUNT 7.8 Th/cmm (4.8-10.8)
[2018-03-20 17:31] LABS: URINE SOURCE CLEAN C
[2018-03-20 17:36] LABS: URINE BILIRUBIN NEGATIVE (NEGATIVE); URINE BLOOD NEGATIVE (NEGATIVE); URINE GLUCOSE (UA) NEGATIVE (NEGATIVE); URINE KETONE NEGATIVE (NEGATIVE); URINE LEUKOCYTE ESTERASE NEGATIVE (NEGATIVE); URINE NITRATE NEGATIVE (NEGATIVE); URINE PH 6.5 (4.6 - 8.0); URINE PROTEIN NEGATIVE (NEGATIVE); URINE UROBILINOGEN 0.2 E.U./dL (0.2 - 1.0)
[2018-03-20 17:39] LABS: URINE CLARITY CLEAR (CLEAR); URINE COLOR YELLOW; URINE MICROSCOPIC INDICATED? YES
[2018-03-20 17:42] LABS: URINE BACTERIA OCCASIONAL /hpf (NONE SEEN); URINE EPITHELIAL CELLS FEW /lpf (FEW); URINE RBC 0-2 /hpf (0-5); URINE WBC 0-2 /hpf (0-5)
[2018-03-20 17:47] LABS: ALB/GLOB RATIO 1.5 (1.0-1.8); ALBUMIN 4.2 gm/dL (4.2-5.5); ALKALINE PHOSPHATASE 65 U/L (34-104); ANION GAP 9.6 (7.0-16.0); BILIRUBIN,TOTAL 0.6 mg/dL (0.3-1.0); BUN - UREA NITROGEN 14 mg/dL (7-25); CALCIUM SERUM 9.9 mg/dL (8.6-10.3); CARBON DIOXIDE 24.8 mEq/L (21.0-31.0); CHLORIDE 98 mEq/L (98-107); GFR AFRICAN-AMERICAN > 60.0 ml/min (>90); GFR NON AFRICAN-AMERICAN > 60.0 ml/min; GLUCOSE 95 mg/dL (70-105); POTASSIUM SERUM 4.4 mEq/L (3.5-5.1); SGOT 13 U/L (13-39); SGPT/ALT 8 U/L (7-52); SODIUM SERUM 128 mEq/L (136-145); TOTAL PROTEIN,SERUM 7.1 gm/dL (6.0-8.3)
[2018-03-20] MEDS ORDERED: Sodium Chloride 0.9% 1,000 ML IV ONE (18:06)
[2018-03-20 21:06] VITALS: BP 123/63
[2018-03-20] MEDS ORDERED: Maalox 30 mL Cup PO PRN (21:19)
[2018-03-20] MEDS ORDERED: Magnesium Hydroxide (MOM) 30 mL UDC PO PRN ×2 (21:19→21:42)
[2018-03-20 21:49] LABS: CHOLESTEROL 138 mg/dL (<200); HDL -HIGH DENSITY LIPOPROTEIN 52 mg/dL (23-92); TRIGLYCERIDES 67 mg/dL (<150)
[2018-03-21] MEDS: Multivitamin w/ Minerals Tab PO SCH (08:26)
[2018-03-21] MEDS ORDERED: Multivitamin Tab PO SCH (09:00)
[2018-03-21] MEDS ORDERED: Non-Formulary Item 1 EA (Meloxicam [Meloxicam] 15 MG) PO SCH (09:00)
[2018-03-21] MEDS: Enoxaparin 30 mg/0.3 mL 0.3mL Syr SUBQ SCH ×2 (09:28→20:49)
--- NOTE | 2018-03-21 17:20 | History & Physical ---
ADMIT DATE: 03/20/2018 CHIEF COMPLAINT: Agitation. HISTORY OF PRESENT ILLNESS: This is a 57-year-old male who is a half-way resident of [facility], admitted here to the Geropsych Unit due to agitation. PAST MEDICAL HISTORY: Arthritis, history of DVT, psychosis. PAST SURGICAL HISTORY: Unknown. ALLERGIES: No known drug allergies. HOME MEDICATIONS: Please see medication list. SOCIAL HISTORY: The patient is a half-way resident, requiring 24-hour nursing care. REVIEW OF SYSTEMS: GENERAL: Denies any fevers and chills. CARDIOVASCULAR: Denies chest pain. RESPIRATORY: Denies shortness of breath. GASTROINTESTINAL: Denies nausea, vomiting, abdominal pain. GENITOURINARY: Denies increased frequency or dysuria. NEUROLOGIC: No headaches, seizures, or syncope. All other systems are reviewed and are negative. PHYSICAL EXAMINATION: GENERAL: The patient is awake, alert, in no apparent distress. VITAL SIGNS: Temperature 96.0, heart rate 56, blood pressure 112/68, respirations 20, O2 97%. HEENT: Head normocephalic, atraumatic. NECK: Supple. No mass. LUNGS: Clear bilaterally. HEART: Regular rate and rhythm. ABDOMEN: Soft, nontender. LABORATORY DATA: WBC 7.8, H and H of 13.9 and 41.0, platelet of 201. Sodium 128, potassium 4.4, chloride 98, BUN 14, creatinine 1.0. ASSESSMENT: Agitation, arthritis, psychosis, chronic pains, and history of deep venous thrombosis. PLAN: We will continue patient's half-way medications. We will continue to follow this patient. JOB# [id number]
[2018-03-22] MEDS: Multivitamin w/ Minerals Tab PO SCH (08:36)
[2018-03-22] MEDS: Enoxaparin 30 mg/0.3 mL 0.3mL Syr SUBQ SCH ×2 (08:36→20:01)
--- NOTE | 2018-03-22 13:27 | Internal Medicine Prog Note ---
Internal Medicine Subjective - Subjective Service Date: 03/22/18 Patient seen and examined:: with staff Patient is:: awake, verbal Per staff patient has:: tolerating meds Internal Medicine Objective - Results Result Diagrams: 03/20/18 17:15 03/20/18 17:15 Recent Labs: Laboratory Last Values WBC 7.8 Th/cmm (4.8-10.8) 03/20/18 17:15 RBC 4.56 Mil/cmm (4.30-5.70) 03/20/18 17:15 Hgb 13.9 gm/dL (12-16) 03/20/18 17:15 Hct 41.0 % (41.0-60) 03/20/18 17:15 MCV 89.8 fl (80-99) 03/20/18 17:15 MCH 30.4 pg (26.0-30.0) H 03/20/18 17:15 MCHC Differential 33.9 pg (28.0-36.0) 03/20/18 17:15 RDW 14.0 % (11.5-20.0) 03/20/18 17:15 Plt Count 201 Th/cmm (150-400) 03/20/18 17:15 MPV 7.3 fl 03/20/18 17:15 Neutrophils % 69.1 % (40.0-80.0) 03/20/18 17:15 Lymphocytes % 20.5 % (20.0-50.0) 03/20/18 17:15 Monocytes % 9.3 % (2.0-10.0) 03/20/18 17:15 Eosinophils % 0.7 % (0.0-5.0) 03/20/18 17:15 Basophils % 0.4 % (0.0-2.0) 03/20/18 17:15 Sodium 128 mEq/L (136-145) L 03/20/18 17:15 Potassium 4.4 mEq/L (3.5-5.1) 03/20/18 17:15 Chloride 98 mEq/L (98-107) 03/20/18 17:15 Carbon Dioxide 24.8 mEq/L (21.0-31.0) 03/20/18 17:15 Anion Gap 9.6 (7.0-16.0) 03/20/18 17:15 BUN 14 mg/dL (7-25) 03/20/18 17:15 Creatinine 1.0 mg/dL (0.7-1.3) 03/20/18 17:15 Est GFR ( Amer) > 60.0 ml/min (>90) 03/20/18 17:15 Est GFR (Non-Af Amer) > 60.0 ml/min 03/20/18 17:15 BUN/Creatinine Ratio 14.0 03/20/18 17:15 Glucose 95 mg/dL (70-105) 03/20/18 17:15 Calcium 9.9 mg/dL (8.6-10.3) 03/20/18 17:15 Total Bilirubin 0.6 mg/dL (0.3-1.0) 03/20/18 17:15 AST 13 U/L (13-39) 03/20/18 17:15 ALT 8 U/L (7-52) 03/20/18 17:15 Alkaline Phosphatase 65 U/L (34-104) 03/20/18 17:15 Total Protein 7.1 gm/dL (6.0-8.3) 03/20/18 17:15 Albumin 4.2 gm/dL (4.2-5.5) 03/20/18 17:15 Globulin 2.9 gm/dL 03/20/18 17:15 Albumin/Globulin Ratio 1.5 (1.0-1.8) 03/20/18 17:15 Triglycerides 67 mg/dL (<150) 03/20/18 17:15 Cholesterol 138 mg/dL (<200) 03/20/18 17:15 LDL Cholesterol Direct 74 mg/dL (75-193) L 03/20/18 17:15 HDL Cholesterol 52 mg/dL (23-92) 03/20/18 17:15 Urine Source CLEAN C 03/20/18 16:40 Urine Color YELLOW 03/20/18 16:40 Urine Clarity CLEAR (CLEAR) 03/20/18 16:40 Urine pH 6.5 (4.6 - 8.0) 03/20/18 16:40 Ur Specific [place] <= 1.005 (1.005-1.030) 03/20/18 16:40 Urine Protein NEGATIVE mg/dL (NEGATIVE) 03/20/18 16:40 Urine Glucose (UA) NEGATIVE mg/dL (NEGATIVE) 03/20/18 16:40 Urine Ketones NEGATIVE mg/dL (NEGATIVE) 03/20/18 16:40 Urine Blood NEGATIVE (NEGATIVE) 03/20/18 16:40 Urine Nitrate NEGATIVE (NEGATIVE) 03/20/18 16:40 Urine Bilirubin NEGATIVE (NEGATIVE) 03/20/18 16:40 Urine Urobilinogen 0.2 E.U./dL (0.2 - 1.0) 03/20/18 16:40 Ur Leukocyte Esterase NEGATIVE (NEGATIVE) 03/20/18 16:40 Urine RBC 0-2 /hpf (0-5) H 03/20/18 16:40 Urine WBC 0-2 /hpf (0-5) 03/20/18 16:40 Ur Epithelial Cells FEW /lpf (FEW) 03/20/18 16:40 Urine Bacteria OCCASIONAL /hpf (NONE SEEN) 03/20/18 16:40 - Physical Exam Vitals and I&O: Vital Signs Temp 97.1 F 03/22/18 06:47 Pulse 58 03/22/18 06:47 Resp 20 03/22/18 06:47 BP 109/66 03/22/18 06:47 Pulse Ox 97 03/22/18 06:47 Intake & Output 03/21/18 03/22/18 03/22/18 18:59 06:59 18:59 Intake Total 1800 120 Balance 1800 120 Intake: Oral 1800 120 Other: # Voids 4 3 # Bowel Movements 0 Active Medications: Current Medications Acetaminophen (Tylenol) 650 mg PO Q4HR PRN PRN Reason: Mild Pain / Temp above 100 Stop: 05/19/18 21:18 Al Hydrox/Mg Hydrox/Simethicone (Maalox) 30 ml PO Q4HR PRN PRN Reason: GI DISTRESS Stop: 05/19/18 21:18 Docusate Sodium (Colace) 100 mg PO BID KB Stop: 05/20/18 08:59 Last Admin: 03/22/18 08:36 Dose: 100 mg Enoxaparin Sodium (Lovenox) 30 mg SUBQ Q12HR KB Stop: 05/20/18 08:59 Last Admin: 03/22/18 08:36 Dose: 30 mg Lorazepam (Ativan) 0.5 mg PO Q4HR PRN; Protocol PRN Reason: Anxiety Stop: 04/19/18 21:18 Last Admin: 03/22/18 09:40 Dose: 0.5 mg Magnesium Hydroxide (Milk Of Magnesia) 30 ml PO HS PRN PRN Reason: IF ORDERED STOOL SOFTENERS INE Stop: 05/19/18 21:41 Miscellaneous (Meloxicam [Meloxicam]) 15 mg PO DAILY KB Stop: 05/20/18 08:59 Risperidone (Risperdal) 3 mg PO BID KB; Protocol Stop: 05/20/18 08:59 Last Admin: 03/22/18 08:35 Dose: 3 mg Zolpidem Tartrate (Ambien) 5 mg PO HS PRN PRN Reason: Insomnia Stop: 05/19/18 21:18 General: alert HEENT: NC/AT, PERRLA Neck: Supple Lungs: CTAB Cardiovascular: RRR, Normal S1, Normal S2 Abdomen: soft, non-tender, non-distended Extremities: excoriation Internal Medicine Assmt/Plan - Assessment Assessment: Agitation, arthritis, psychosis, chronic pains, and history of deep venous thrombosis. . - Plan Plan: contiue daily inr continue current plan of care
--- NOTE | 2018-03-22 22:22 | Progress Notes ---
DATE: SUBJECTIVE: Chart reviewed and the patient interviewed. Also discussed the patient's condition with the staff and reviewed records and labs. The patient is still easily agitated and he is still in irritable mood. The patient also is still argumentative and still have episodes of aggression. The patient also still seems to be preoccupied and responding to stimuli. Otherwise, the patient is compliant with taking his medications with no side effects. ASSESSMENT: The patient is still agitated and still psychotic. TREATMENT PLAN: Continue Risperdal same dose. Also, continue behavioral modification and continue to follow up closely. JOB# [id number]
--- NOTE | 2018-03-22 23:22 | Psychiatric Evaluation ---
DATE OF SERVICE: PATIENT'S AGE: 57-year-old. SEX: Male. PHYSICIAN: Dr. Guo. CHIEF COMPLAINT: Agitation and aggressive behavior. HISTORY OF PRESENT ILLNESS: The patient is a 57-year-old male who has been increasingly agitated and in irritable mood and has been hitting staff and aggressive with the staff. The patient also has been psychotic and has been unable to follow any of the staff directions. The patient was discharged recently from the hospital, but he has been increasingly agitated and irritable and difficulty with his mood swings. Also, have episodes of confusion. PAST PSYCHIATRIC HISTORY: The patient was discharged from the hospital recently because of similar psychotic episode. The patient has not been able to follow. The patient also has a long history of psychosis. Also, has a history of what seems to be schizoaffective disorder. PAST MEDICAL HISTORY: The patient has no major medical problems in the past. FAMILY PSYCHIATRIC HISTORY: Noncontributory. SOCIAL HISTORY: The patient lives in a snf. No known alcohol or drug use or abuse issues. ALLERGIES: No known allergies. MENTAL STATUS EXAMINATION: The patient appears older than his stated age. Disheveled. Irritable mood. Anxious. Thought processes are circumstantial with flight of ideas. The patient denies hallucinations or delusions, but the patient is paranoid and in irritable mood. The patient denies any thoughts of suicide or homicide. The patient is alert and oriented to the situation, but not to the place or date. Impaired immediate memory and intact recent and remote memories. Poor insight and poor judgment. ASSESSMENT: PRIMARY DIAGNOSIS: Schizoaffective disorder, mixed type, with psychotic features. TREATMENT PLAN: Continue to monitor his behavior and adjust the patient's dose. Also, we will continue Risperdal in a dose of 3 mg twice a day and we will adjust the dose. Also, continue to work on behavioral modification. ESTIMATED LENGTH OF STAY: 5-7 days. THE PATIENT'S STRENGTHS AND WEAKNESSES: The patient's strength seems that he is in relatively fair health. Weaknesses is his poor impulse control. AFTER DISCHARGE PLAN: Outpatient treatment and followup will continue as an outpatient and the patient will return to live in his snf. CRITERIA FOR DISCHARGE: The patient will not be psychotic and will stabilize psychotropic medications and will establish outpatient treatment plans. JOB# [id number]
[2018-03-23] MEDS: Multivitamin w/ Minerals Tab PO SCH (10:16)
[2018-03-23] MEDS: Enoxaparin 30 mg/0.3 mL 0.3mL Syr SUBQ SCH ×2 (17:10→21:26)
--- NOTE | 2018-03-23 22:47 | Progress Notes ---
DATE: 03/23/2018 Case was discussed with staff of the patient, reviewed records. The patient was referred by me from [place] because of agitation, irritability, threatening staff, has been psychotic, unable to follow staff direction. The patient continues to be unpredictable and impulsive, needing redirection. Continues to have poor insight. Continues to be easily agitated, continues to be unable to stay calm and cooperative. Dr. Guo saw him initially, had him on the Risperdal 3 mg twice a day with no side effects, no sedation, no nausea, no extrapyramidal symptoms and we will continue to work with the patient in group therapy, milieu therapy, and adjust the medications as needed. JOB# [id number]
[2018-03-24] MEDS: Multivitamin w/ Minerals Tab PO SCH (10:33)
[2018-03-24] MEDS: Enoxaparin 30 mg/0.3 mL 0.3mL Syr SUBQ SCH ×2 (10:35→21:01)
--- NOTE | 2018-03-24 17:17 | Progress Notes ---
DATE: 03/24/2018 Case was discussed with staff of the patient, reviewed records. The patient continues to be confused, continues to stay in bed, isolating himself with episodes of agitation and irritability. He is compliant with the medication with no side effects, no sedation, no nausea, no extrapyramidal symptoms. His lab work showed his ____ with high MCH, the rest within normal range. Chemistry panel with low sodium at 128, the rest within normal range. Lipid profile was low, LDL cholesterol Urinalysis was urine red cells and no side effects with the medication, no sedation, no nausea. I will be consulting with the medical doctor ____ cells in the urine. I will continue outpatient group therapy, milieu therapy, and adjust medication as needed. JOB# [id number]
--- NOTE | 2018-03-25 09:02 | Progress Notes ---
DATE: 03/25/2018 SUBJECTIVE: Case was discussed with staff of the patient and reviewed records. The patient continues to be irritable and easily agitated. He continues to have poor insight. He is unable to make safe plan for his self-care. He seems to be unpredictable, impulsive, and needing redirection. PLAN: No side effects to the medication, no sedation, no nausea, no extrapyramidal symptoms. Sleeping better, eating better. We will continue to have the patient in group therapy, milieu therapy, and adjust medication as needed. JOB# [id number]
[2018-03-25] MEDS: Multivitamin w/ Minerals Tab PO SCH (09:25)
[2018-03-25] MEDS: Enoxaparin 30 mg/0.3 mL 0.3mL Syr SUBQ SCH ×2 (09:26→20:53)
--- NOTE | 2018-03-25 15:17 | Internal Medicine Prog Note ---
Internal Medicine Subjective - Subjective Service Date: 03/25/18 Patient is:: awake, verbal Per staff patient has:: tolerating meds Internal Medicine Objective - Results Result Diagrams: 03/20/18 17:15 03/20/18 17:15 Recent Labs: Laboratory Last Values WBC 7.8 Th/cmm (4.8-10.8) 03/20/18 17:15 RBC 4.56 Mil/cmm (4.30-5.70) 03/20/18 17:15 Hgb 13.9 gm/dL (12-16) 03/20/18 17:15 Hct 41.0 % (41.0-60) 03/20/18 17:15 MCV 89.8 fl (80-99) 03/20/18 17:15 MCH 30.4 pg (26.0-30.0) H 03/20/18 17:15 MCHC Differential 33.9 pg (28.0-36.0) 03/20/18 17:15 RDW 14.0 % (11.5-20.0) 03/20/18 17:15 Plt Count 201 Th/cmm (150-400) 03/20/18 17:15 MPV 7.3 fl 03/20/18 17:15 Neutrophils % 69.1 % (40.0-80.0) 03/20/18 17:15 Lymphocytes % 20.5 % (20.0-50.0) 03/20/18 17:15 Monocytes % 9.3 % (2.0-10.0) 03/20/18 17:15 Eosinophils % 0.7 % (0.0-5.0) 03/20/18 17:15 Basophils % 0.4 % (0.0-2.0) 03/20/18 17:15 Sodium 128 mEq/L (136-145) L 03/20/18 17:15 Potassium 4.4 mEq/L (3.5-5.1) 03/20/18 17:15 Chloride 98 mEq/L (98-107) 03/20/18 17:15 Carbon Dioxide 24.8 mEq/L (21.0-31.0) 03/20/18 17:15 Anion Gap 9.6 (7.0-16.0) 03/20/18 17:15 BUN 14 mg/dL (7-25) 03/20/18 17:15 Creatinine 1.0 mg/dL (0.7-1.3) 03/20/18 17:15 Est GFR ( Amer) > 60.0 ml/min (>90) 03/20/18 17:15 Est GFR (Non-Af Amer) > 60.0 ml/min 03/20/18 17:15 BUN/Creatinine Ratio 14.0 03/20/18 17:15 Glucose 95 mg/dL (70-105) 03/20/18 17:15 Calcium 9.9 mg/dL (8.6-10.3) 03/20/18 17:15 Total Bilirubin 0.6 mg/dL (0.3-1.0) 03/20/18 17:15 AST 13 U/L (13-39) 03/20/18 17:15 ALT 8 U/L (7-52) 03/20/18 17:15 Alkaline Phosphatase 65 U/L (34-104) 03/20/18 17:15 Total Protein 7.1 gm/dL (6.0-8.3) 03/20/18 17:15 Albumin 4.2 gm/dL (4.2-5.5) 03/20/18 17:15 Globulin 2.9 gm/dL 03/20/18 17:15 Albumin/Globulin Ratio 1.5 (1.0-1.8) 03/20/18 17:15 Triglycerides 67 mg/dL (<150) 03/20/18 17:15 Cholesterol 138 mg/dL (<200) 03/20/18 17:15 LDL Cholesterol Direct 74 mg/dL (75-193) L 03/20/18 17:15 HDL Cholesterol 52 mg/dL (23-92) 03/20/18 17:15 Urine Source CLEAN C 03/20/18 16:40 Urine Color YELLOW 03/20/18 16:40 Urine Clarity CLEAR (CLEAR) 03/20/18 16:40 Urine pH 6.5 (4.6 - 8.0) 03/20/18 16:40 Ur Specific [place] <= 1.005 (1.005-1.030) 03/20/18 16:40 Urine Protein NEGATIVE mg/dL (NEGATIVE) 03/20/18 16:40 Urine Glucose (UA) NEGATIVE mg/dL (NEGATIVE) 03/20/18 16:40 Urine Ketones NEGATIVE mg/dL (NEGATIVE) 03/20/18 16:40 Urine Blood NEGATIVE (NEGATIVE) 03/20/18 16:40 Urine Nitrate NEGATIVE (NEGATIVE) 03/20/18 16:40 Urine Bilirubin NEGATIVE (NEGATIVE) 03/20/18 16:40 Urine Urobilinogen 0.2 E.U./dL (0.2 - 1.0) 03/20/18 16:40 Ur Leukocyte Esterase NEGATIVE (NEGATIVE) 03/20/18 16:40 Urine RBC 0-2 /hpf (0-5) H 03/20/18 16:40 Urine WBC 0-2 /hpf (0-5) 03/20/18 16:40 Ur Epithelial Cells FEW /lpf (FEW) 03/20/18 16:40 Urine Bacteria OCCASIONAL /hpf (NONE SEEN) 03/20/18 16:40 - Physical Exam Vitals and I&O: Vital Signs Temp 97.9 F 03/25/18 06:26 Pulse 57 03/25/18 06:26 Resp 20 03/25/18 06:26 BP 103/65 03/25/18 06:26 Pulse Ox 96 03/25/18 06:26 Intake & Output 03/24/18 03/25/18 03/25/18 18:59 06:59 18:59 Intake Total 950 240 Balance 950 240 Weight (lbs) 196 lb Intake: Oral 950 240 Other: # Voids 4 3 # Bowel Movements 1 0 Weight Source Bedscale Active Medications: Current Medications Acetaminophen (Tylenol) 650 mg PO Q4HR PRN PRN Reason: Mild Pain / Temp above 100 Stop: 05/19/18 21:18 Al Hydrox/Mg Hydrox/Simethicone (Maalox) 30 ml PO Q4HR PRN PRN Reason: GI DISTRESS Stop: 05/19/18 21:18 Docusate Sodium (Colace) 100 mg PO BID KB Stop: 05/20/18 08:59 Last Admin: 03/25/18 09:25 Dose: 100 mg Enoxaparin Sodium (Lovenox) 30 mg SUBQ Q12HR KB Stop: 05/20/18 08:59 Last Admin: 03/25/18 09:26 Dose: Not Given Lorazepam (Ativan) 0.5 mg PO Q4HR PRN; Protocol PRN Reason: Anxiety Stop: 04/19/18 21:18 Last Admin: 03/22/18 09:40 Dose: 0.5 mg Magnesium Hydroxide (Milk Of Magnesia) 30 ml PO HS PRN PRN Reason: IF ORDERED STOOL SOFTENERS INE Stop: 05/19/18 21:41 Risperidone (Risperdal) 3 mg PO BID KB; Protocol Stop: 05/20/18 08:59 Last Admin: 03/25/18 09:25 Dose: 3 mg Zolpidem Tartrate (Ambien) 5 mg PO HS PRN PRN Reason: Insomnia Stop: 05/19/18 21:18 Last Admin: 03/23/18 21:26 Dose: 5 mg General: alert HEENT: NC/AT, PERRLA Neck: Supple Lungs: CTAB Cardiovascular: RRR, Normal S1, Normal S2 Abdomen: soft, non-tender, non-distended Extremities: excoriation Internal Medicine Assmt/Plan - Assessment Assessment: Agitation, arthritis, psychosis, chronic pains, and history of deep venous thrombosis. . - Plan Plan: contiue daily inr continue current plan of care Nutritional Asmnt/Malnutr-PDOC - Dietary Evaluation Malnutrition Findings (Please click <Entered> for more info): Nutritional Asmnt/Malnutrition Start: 03/25/18 14: 21 Text: Status: Complete Freq: Protocol: Document 03/25/18 14:21 LCHENG (Rec: 03/25/18 14:27 [email or web address]) Nutritional Asmnt/Malnutrition Patient General Information Nutritional Screening Moderate Risk Diagnosis psychosis NOS Pertinent Medical Hx/Surgical Hx arthritis, DVT, psychosis Subjective Information Pt seen lying in bed, awake. Pt stated good food, no food preference provided. Per EMR, PO intake 100%, Current Diet Order/ Nutrition Support regular Pertinent Medications colace, risperdal Pertinent Labs 03/20 Na 128 Nutritional Hx/Data Height 6 ft Height (Calculated Centimeters) 182.9 Current Weight (lbs) 196 lb Weight (Calculated Kilograms) 88.9 Weight (Calculated Grams) 00187.1 [place] Body Weight 178 Body Mass Index (BMI) 26.6 Weight Status Approriate GI Symptoms GI Symptoms None Last BM 03/24 Difficult in: None Skin Integrity/Comment: intact Current %PO Good (75-100%) Estimated Nutritional Goals BEE in Kcals: Using Current wt Calories/Kcals/Kg 23-27 Kcals Calculated 7899-7255 Protein: Using Current wt Protein g/k.8-1 Protein Calculated 71-89 Fluid: ml 2046-240ml (1ml/kcal) Nutritional Problem No current Nutrition Prob Problem N/A Intervention/Recommendation Comments 1. Continue with regular diet as ordered. 2. Monitor PO intake, wt, labs and skin integrity 3. F/U as low risk in 7 days, 04/01 Expected Outcomes/Goals Expected Outcomes/Goals 1. PO intake to meet at least 75% of nutritional needs. 2. Wt stability, skin to remain intact, labs to approach WNL.
[2018-03-26] MEDS: Enoxaparin 30 mg/0.3 mL 0.3mL Syr SUBQ SCH ×2 (09:00→20:37)
[2018-03-26] MEDS: Multivitamin w/ Minerals Tab PO SCH (09:00)
--- NOTE | 2018-03-26 13:30 | Progress Notes ---
DATE: 03/26/2018 FOLLOW-UP PROGRESS NOTE PROGRESS ON THE UNIT: Case was discussed with staff of the patient, reviewed records. The patient continues to be internally preoccupied, demented, confused, unable to make a safe plan for self-care, unable to participate in meaningful conversation. He is unpredictable, impulsive, needing redirection. No side effects with the medications, no sedation, no nausea, no extrapyramidal symptoms. PLAN: We will continue to work with the patient in group therapy and milieu therapy, adjust the medications as needed. JOB# [id number]
--- NOTE | 2018-03-26 15:54 | General Progress Note ---
Subjective - Review of Systems Events since last encounter: patient continues to be demented and confused Objective - Results Result Diagrams: 03/20/18 17:15 03/20/18 17:15 Recent Labs: Laboratory Last Values WBC 7.8 Th/cmm (4.8-10.8) 03/20/18 17:15 RBC 4.56 Mil/cmm (4.30-5.70) 03/20/18 17:15 Hgb 13.9 gm/dL (12-16) 03/20/18 17:15 Hct 41.0 % (41.0-60) 03/20/18 17:15 MCV 89.8 fl (80-99) 03/20/18 17:15 MCH 30.4 pg (26.0-30.0) H 03/20/18 17:15 MCHC Differential 33.9 pg (28.0-36.0) 03/20/18 17:15 RDW 14.0 % (11.5-20.0) 03/20/18 17:15 Plt Count 201 Th/cmm (150-400) 03/20/18 17:15 MPV 7.3 fl 03/20/18 17:15 Neutrophils % 69.1 % (40.0-80.0) 03/20/18 17:15 Lymphocytes % 20.5 % (20.0-50.0) 03/20/18 17:15 Monocytes % 9.3 % (2.0-10.0) 03/20/18 17:15 Eosinophils % 0.7 % (0.0-5.0) 03/20/18 17:15 Basophils % 0.4 % (0.0-2.0) 03/20/18 17:15 Sodium 128 mEq/L (136-145) L 03/20/18 17:15 Potassium 4.4 mEq/L (3.5-5.1) 03/20/18 17:15 Chloride 98 mEq/L (98-107) 03/20/18 17:15 Carbon Dioxide 24.8 mEq/L (21.0-31.0) 03/20/18 17:15 Anion Gap 9.6 (7.0-16.0) 03/20/18 17:15 BUN 14 mg/dL (7-25) 03/20/18 17:15 Creatinine 1.0 mg/dL (0.7-1.3) 03/20/18 17:15 Est GFR ( Amer) > 60.0 ml/min (>90) 03/20/18 17:15 Est GFR (Non-Af Amer) > 60.0 ml/min 03/20/18 17:15 BUN/Creatinine Ratio 14.0 03/20/18 17:15 Glucose 95 mg/dL (70-105) 03/20/18 17:15 Calcium 9.9 mg/dL (8.6-10.3) 03/20/18 17:15 Total Bilirubin 0.6 mg/dL (0.3-1.0) 03/20/18 17:15 AST 13 U/L (13-39) 03/20/18 17:15 ALT 8 U/L (7-52) 03/20/18 17:15 Alkaline Phosphatase 65 U/L (34-104) 03/20/18 17:15 Total Protein 7.1 gm/dL (6.0-8.3) 03/20/18 17:15 Albumin 4.2 gm/dL (4.2-5.5) 03/20/18 17:15 Globulin 2.9 gm/dL 03/20/18 17:15 Albumin/Globulin Ratio 1.5 (1.0-1.8) 03/20/18 17:15 Triglycerides 67 mg/dL (<150) 03/20/18 17:15 Cholesterol 138 mg/dL (<200) 03/20/18 17:15 LDL Cholesterol Direct 74 mg/dL (75-193) L 03/20/18 17:15 HDL Cholesterol 52 mg/dL (23-92) 03/20/18 17:15 Urine Source CLEAN C 03/20/18 16:40 Urine Color YELLOW 03/20/18 16:40 Urine Clarity CLEAR (CLEAR) 03/20/18 16:40 Urine pH 6.5 (4.6 - 8.0) 03/20/18 16:40 Ur Specific [place] <= 1.005 (1.005-1.030) 03/20/18 16:40 Urine Protein NEGATIVE mg/dL (NEGATIVE) 03/20/18 16:40 Urine Glucose (UA) NEGATIVE mg/dL (NEGATIVE) 03/20/18 16:40 Urine Ketones NEGATIVE mg/dL (NEGATIVE) 03/20/18 16:40 Urine Blood NEGATIVE (NEGATIVE) 03/20/18 16:40 Urine Nitrate NEGATIVE (NEGATIVE) 03/20/18 16:40 Urine Bilirubin NEGATIVE (NEGATIVE) 03/20/18 16:40 Urine Urobilinogen 0.2 E.U./dL (0.2 - 1.0) 03/20/18 16:40 Ur Leukocyte Esterase NEGATIVE (NEGATIVE) 03/20/18 16:40 Urine RBC 0-2 /hpf (0-5) H 03/20/18 16:40 Urine WBC 0-2 /hpf (0-5) 03/20/18 16:40 Ur Epithelial Cells FEW /lpf (FEW) 03/20/18 16:40 Urine Bacteria OCCASIONAL /hpf (NONE SEEN) 03/20/18 16:40 - Physical Exam Vitals and I&O: Vital Signs Temp 98.3 F 03/26/18 06:39 Pulse 60 03/26/18 06:39 Resp 19 03/26/18 06:39 BP 112/69 03/26/18 06:39 Pulse Ox 96 03/26/18 06:39 Intake & Output 03/25/18 03/26/18 03/26/18 18:59 06:59 18:59 Intake Total 1200 120 Balance 1200 120 Intake: Oral 1200 120 Other: # Voids 3 # Bowel Movements 1 Active Medications: Current Medications Acetaminophen (Tylenol) 650 mg PO Q4HR PRN PRN Reason: Mild Pain / Temp above 100 Stop: 05/19/18 21:18 Last Admin: 03/26/18 14:40 Dose: 650 mg Al Hydrox/Mg Hydrox/Simethicone (Maalox) 30 ml PO Q4HR PRN PRN Reason: GI DISTRESS Stop: 05/19/18 21:18 Docusate Sodium (Colace) 100 mg PO BID KB Stop: 05/20/18 08:59 Last Admin: 03/26/18 09:00 Dose: 100 mg Enoxaparin Sodium (Lovenox) 30 mg SUBQ Q12HR KB Stop: 05/20/18 08:59 Last Admin: 03/26/18 09:00 Dose: Not Given Lorazepam (Ativan) 0.5 mg PO Q4HR PRN; Protocol PRN Reason: Anxiety Stop: 04/19/18 21:18 Last Admin: 03/22/18 09:40 Dose: 0.5 mg Magnesium Hydroxide (Milk Of Magnesia) 30 ml PO HS PRN PRN Reason: IF ORDERED STOOL SOFTENERS INE Stop: 05/19/18 21:41 Risperidone (Risperdal) 3 mg PO BID KB; Protocol Stop: 05/20/18 08:59 Last Admin: 03/26/18 09:00 Dose: 3 mg Zolpidem Tartrate (Ambien) 5 mg PO HS PRN PRN Reason: Insomnia Stop: 05/19/18 21:18 Last Admin: 03/25/18 20:53 Dose: 5 mg Assessment/Plan - Problem List Patient Problems: All Active Problems AGITATION AND AGGRESSION (Acute) Nutritional Asmnt/Malnutr-PDOC - Dietary Evaluation Malnutrition Findings (Please click <Entered> for more info): Nutritional Asmnt/Malnutrition Start: 03/25/18 14: 21 Text: Status: Complete Freq: Protocol: Document 03/25/18 14:21 LCHENG (Rec: 03/25/18 14:27 [email or web address]) Nutritional Asmnt/Malnutrition Patient General Information Nutritional Screening Moderate Risk Diagnosis psychosis NOS Pertinent Medical Hx/Surgical Hx arthritis, DVT, psychosis Subjective Information Pt seen lying in bed, awake. Pt stated good food, no food preference provided. Per EMR, PO intake 100%, Current Diet Order/ Nutrition Support regular Pertinent Medications colace, risperdal Pertinent Labs 03/20 Na 128 Nutritional Hx/Data Height 1.83 m Height (Calculated Centimeters) 182.9 Current Weight (lbs) 88.904 kg Weight (Calculated Kilograms) 88.9 Weight (Calculated Grams) 50674.1 [place] Body Weight 178 Body Mass Index (BMI) 26.6 Weight Status Approriate GI Symptoms GI Symptoms None Last BM 03/24 Difficult in: None Skin Integrity/Comment: intact Current %PO Good (75-100%) Estimated Nutritional Goals BEE in Kcals: Using Current wt Calories/Kcals/Kg 23-27 Kcals Calculated 0794-8225 Protein: Using Current wt Protein g/k.8-1 Protein Calculated 71-89 Fluid: ml 2047-2403ml (1ml/kcal) Nutritional Problem No current Nutrition Prob Problem N/A Intervention/Recommendation Comments 1. Continue with regular diet as ordered. 2. Monitor PO intake, wt, labs and skin integrity 3. F/U as low risk in 7 days, 04/01 Expected Outcomes/Goals Expected Outcomes/Goals 1. PO intake to meet at least 75% of nutritional needs. 2. Wt stability, skin to remain intact, labs to approach WNL.
[2018-03-27] MEDS: Enoxaparin 30 mg/0.3 mL 0.3mL Syr SUBQ SCH ×2 (09:10→20:57)
[2018-03-27] MEDS: Multivitamin w/ Minerals Tab PO SCH (09:10)
--- NOTE | 2018-03-27 21:28 | Progress Notes ---
DATE: 03/27/2018 SUBJECTIVE: Case was discussed with staff of the patient, reviewed records. The patient continues to be internally preoccupied; however, he is not as isolating as he was. He continues to be unpredictable, impulsive, needing redirection and mumbling to himself, unable to participate in meaningful conversation or make safe plan for self-care. His sleep and appetite seems to be showing some progress. No side effects to the medication, no sedation, no nausea, no extrapyramidal symptoms. I will continue the patient in group therapy, milieu therapy, and adjust the medications as needed. JOB# [id number]
--- NOTE | 2018-03-28 08:39 | Progress Notes ---
DATE: 03/28/2018 SUBJECTIVE: The patient was seen in the dining area, having breakfast. The patient appears to be guarded and easily gets frustrated and irritable. Otherwise, the patient appears to be in no acute distress. OBJECTIVE: VITAL SIGNS: Temperature 96.7, heart rate 60, blood pressure 98/66, respirations 20, 97% on room air. HEENT: Head is atraumatic and normocephalic. Eyes: Bilateral conjunctivae are clear. Bilateral pupils are equally round and reactive. NECK: Supple. No JVD. CARDIOVASCULAR: S1 and S2, without murmur. PULMONARY: Clear to auscultation. GASTROINTESTINAL: Soft and nontender without guarding. Positive bowel sounds. MUSCULOSKELETAL: No clubbing. No cyanosis noted. ASSESSMENT: 1. Schizoaffective disorder. 2. Osteoarthritis. 3. History of deep venous thrombosis. PLAN: We will keep the patient in inpatient psychiatric unit. We will follow up with a psychiatrist to monitor the patient's condition and behavior. Treatment plans were discussed with the patient's nurse. Treatment plans were discussed with Dr. Devlin. JOB# [id number]
[2018-03-28] MEDS: Multivitamin w/ Minerals Tab PO SCH (08:44)
[2018-03-28] MEDS: Enoxaparin 30 mg/0.3 mL 0.3mL Syr SUBQ SCH ×2 (08:44→21:24)
--- NOTE | 2018-03-28 10:58 | Progress Notes ---
DATE: 03/28/2018 Dr. Guo is covering for Dr. Torres. SUBJECTIVE: Chart reviewed and the patient interviewed. Also discussed the patient's condition with the staff and reviewed records and labs. The patient seems to be less irritable and less agitated. The patient also still seems to be suspicious and slightly paranoid. Also easier to redirect him. The patient also is sleeping better. He denies any side effects of medications. ASSESSMENT: The patient seems to be less agitated and less psychotic. TREATMENT PLAN: Continue monitoring his behavior and his medications and continue to work on behavioral modifications. JOB# [id number]
[2018-03-29] MEDS: Multivitamin w/ Minerals Tab PO SCH (08:47)
[2018-03-29] MEDS: Enoxaparin 30 mg/0.3 mL 0.3mL Syr SUBQ SCH ×2 (08:47→21:23)
--- NOTE | 2018-03-29 09:40 | General Progress Note ---
Subjective - Review of Systems Events since last encounter: patient is improving denies pain Objective - Results Result Diagrams: 03/20/18 17:15 03/20/18 17:15 Recent Labs: Laboratory Last Values WBC 7.8 Th/cmm (4.8-10.8) 03/20/18 17:15 RBC 4.56 Mil/cmm (4.30-5.70) 03/20/18 17:15 Hgb 13.9 gm/dL (12-16) 03/20/18 17:15 Hct 41.0 % (41.0-60) 03/20/18 17:15 MCV 89.8 fl (80-99) 03/20/18 17:15 MCH 30.4 pg (26.0-30.0) H 03/20/18 17:15 MCHC Differential 33.9 pg (28.0-36.0) 03/20/18 17:15 RDW 14.0 % (11.5-20.0) 03/20/18 17:15 Plt Count 201 Th/cmm (150-400) 03/20/18 17:15 MPV 7.3 fl 03/20/18 17:15 Neutrophils % 69.1 % (40.0-80.0) 03/20/18 17:15 Lymphocytes % 20.5 % (20.0-50.0) 03/20/18 17:15 Monocytes % 9.3 % (2.0-10.0) 03/20/18 17:15 Eosinophils % 0.7 % (0.0-5.0) 03/20/18 17:15 Basophils % 0.4 % (0.0-2.0) 03/20/18 17:15 Sodium 128 mEq/L (136-145) L 03/20/18 17:15 Potassium 4.4 mEq/L (3.5-5.1) 03/20/18 17:15 Chloride 98 mEq/L (98-107) 03/20/18 17:15 Carbon Dioxide 24.8 mEq/L (21.0-31.0) 03/20/18 17:15 Anion Gap 9.6 (7.0-16.0) 03/20/18 17:15 BUN 14 mg/dL (7-25) 03/20/18 17:15 Creatinine 1.0 mg/dL (0.7-1.3) 03/20/18 17:15 Est GFR ( Amer) > 60.0 ml/min (>90) 03/20/18 17:15 Est GFR (Non-Af Amer) > 60.0 ml/min 03/20/18 17:15 BUN/Creatinine Ratio 14.0 03/20/18 17:15 Glucose 95 mg/dL (70-105) 03/20/18 17:15 Calcium 9.9 mg/dL (8.6-10.3) 03/20/18 17:15 Total Bilirubin 0.6 mg/dL (0.3-1.0) 03/20/18 17:15 AST 13 U/L (13-39) 03/20/18 17:15 ALT 8 U/L (7-52) 03/20/18 17:15 Alkaline Phosphatase 65 U/L (34-104) 03/20/18 17:15 Total Protein 7.1 gm/dL (6.0-8.3) 03/20/18 17:15 Albumin 4.2 gm/dL (4.2-5.5) 03/20/18 17:15 Globulin 2.9 gm/dL 03/20/18 17:15 Albumin/Globulin Ratio 1.5 (1.0-1.8) 03/20/18 17:15 Triglycerides 67 mg/dL (<150) 03/20/18 17:15 Cholesterol 138 mg/dL (<200) 03/20/18 17:15 LDL Cholesterol Direct 74 mg/dL (75-193) L 03/20/18 17:15 HDL Cholesterol 52 mg/dL (23-92) 03/20/18 17:15 Urine Source CLEAN C 03/20/18 16:40 Urine Color YELLOW 03/20/18 16:40 Urine Clarity CLEAR (CLEAR) 03/20/18 16:40 Urine pH 6.5 (4.6 - 8.0) 03/20/18 16:40 Ur Specific [place] <= 1.005 (1.005-1.030) 03/20/18 16:40 Urine Protein NEGATIVE mg/dL (NEGATIVE) 03/20/18 16:40 Urine Glucose (UA) NEGATIVE mg/dL (NEGATIVE) 03/20/18 16:40 Urine Ketones NEGATIVE mg/dL (NEGATIVE) 03/20/18 16:40 Urine Blood NEGATIVE (NEGATIVE) 03/20/18 16:40 Urine Nitrate NEGATIVE (NEGATIVE) 03/20/18 16:40 Urine Bilirubin NEGATIVE (NEGATIVE) 03/20/18 16:40 Urine Urobilinogen 0.2 E.U./dL (0.2 - 1.0) 03/20/18 16:40 Ur Leukocyte Esterase NEGATIVE (NEGATIVE) 03/20/18 16:40 Urine RBC 0-2 /hpf (0-5) H 03/20/18 16:40 Urine WBC 0-2 /hpf (0-5) 03/20/18 16:40 Ur Epithelial Cells FEW /lpf (FEW) 03/20/18 16:40 Urine Bacteria OCCASIONAL /hpf (NONE SEEN) 03/20/18 16:40 - Physical Exam Vitals and I&O: Vital Signs Temp 97.4 F 03/28/18 14:00 Pulse 56 03/28/18 14:00 Resp 19 03/28/18 14:00 BP 112/64 03/28/18 14:00 Pulse Ox 96 03/28/18 14:00 Intake & Output 03/28/18 03/29/18 03/29/18 18:59 06:59 18:59 Intake Total 1300 Balance 1300 Intake: Oral 1300 Active Medications: Current Medications Acetaminophen (Tylenol) 650 mg PO Q4HR PRN PRN Reason: Mild Pain / Temp above 100 Stop: 05/19/18 21:18 Last Admin: 03/28/18 15:21 Dose: 650 mg Al Hydrox/Mg Hydrox/Simethicone (Maalox) 30 ml PO Q4HR PRN PRN Reason: GI DISTRESS Stop: 05/19/18 21:18 Docusate Sodium (Colace) 100 mg PO BID KB Stop: 05/20/18 08:59 Last Admin: 03/29/18 08:47 Dose: 100 mg Enoxaparin Sodium (Lovenox) 30 mg SUBQ Q12HR KB Stop: 05/20/18 08:59 Last Admin: 03/29/18 08:47 Dose: 30 mg Magnesium Hydroxide (Milk Of Magnesia) 30 ml PO HS PRN PRN Reason: IF ORDERED STOOL SOFTENERS INE Stop: 05/19/18 21:41 Risperidone (Risperdal) 3 mg PO BID [facility]; Protocol Stop: 05/20/18 08:59 Last Admin: 03/29/18 08:47 Dose: 3 mg Assessment/Plan - Problem List Patient Problems: All Active Problems AGITATION AND AGGRESSION (Acute) Nutritional Asmnt/Malnutr-PDOC - Dietary Evaluation Malnutrition Findings (Please click <Entered> for more info): Nutritional Asmnt/Malnutrition Start: 03/25/18 14: 21 Text: Status: Complete Freq: Protocol: Document 03/25/18 14:21 LCFELECIAG (Rec: 03/25/18 14:27 [email or web address] Nutritional Asmnt/Malnutrition Patient General Information Nutritional Screening Moderate Risk Diagnosis psychosis NOS Pertinent Medical Hx/Surgical Hx arthritis, DVT, psychosis Subjective Information Pt seen lying in bed, awake. Pt stated good food, no food preference provided. Per EMR, PO intake 100%, Current Diet Order/ Nutrition Support regular Pertinent Medications colace, risperdal Pertinent Labs 03/20 Na 128 Nutritional Hx/Data Height 1.83 m Height (Calculated Centimeters) 182.9 Current Weight (lbs) 88.904 kg Weight (Calculated Kilograms) 88.9 Weight (Calculated Grams) 22069.1 [place] Body Weight 178 Body Mass Index (BMI) 26.6 Weight Status Approriate GI Symptoms GI Symptoms None Last BM 03/24 Difficult in: None Skin Integrity/Comment: intact Current %PO Good (75-100%) Estimated Nutritional Goals BEE in Kcals: Using Current wt Calories/Kcals/Kg 23-27 Kcals Calculated 0013-9856 Protein: Using Current wt Protein g/k.8-1 Protein Calculated 71-89 Fluid: ml 2047-2403ml (1ml/kcal) Nutritional Problem No current Nutrition Prob Problem N/A Intervention/Recommendation Comments 1. Continue with regular diet as ordered. 2. Monitor PO intake, wt, labs and skin integrity 3. F/U as low risk in 7 days, 10/3 Expected Outcomes/Goals Expected Outcomes/Goals 1. PO intake to meet at least 75% of nutritional needs. 2. Wt stability, skin to remain intact, labs to approach WNL.
--- NOTE | 2018-03-30 01:56 | Progress Notes ---
DATE: 03/29/2018 SUBJECTIVE: Chart reviewed and the patient interviewed. Also, discussed the patient's condition with the staff and reviewed records and labs. The patient is still having unpredictable behavior and he is still pacing up and down the unit, but is quite and is guarded and withdrawn. The patient also is still showing less behavioral problems. Also, is interacting slightly more. The patient is compliant with taking his medications with no side effects of medications. [facility]# [id number]
[2018-03-30] MEDS: Enoxaparin 30 mg/0.3 mL 0.3mL Syr SUBQ SCH ×2 (08:47→21:08)
[2018-03-30] MEDS: Multivitamin w/ Minerals Tab PO SCH (08:47)
--- NOTE | 2018-03-30 14:29 | General Progress Note ---
Subjective - Review of Systems Events since last encounter: patient withdrawn unpredictable Objective - Results Result Diagrams: 03/20/18 17:15 03/20/18 17:15 Recent Labs: Laboratory Last Values WBC 7.8 Th/cmm (4.8-10.8) 03/20/18 17:15 RBC 4.56 Mil/cmm (4.30-5.70) 03/20/18 17:15 Hgb 13.9 gm/dL (12-16) 03/20/18 17:15 Hct 41.0 % (41.0-60) 03/20/18 17:15 MCV 89.8 fl (80-99) 03/20/18 17:15 MCH 30.4 pg (26.0-30.0) H 03/20/18 17:15 MCHC Differential 33.9 pg (28.0-36.0) 03/20/18 17:15 RDW 14.0 % (11.5-20.0) 03/20/18 17:15 Plt Count 201 Th/cmm (150-400) 03/20/18 17:15 MPV 7.3 fl 03/20/18 17:15 Neutrophils % 69.1 % (40.0-80.0) 03/20/18 17:15 Lymphocytes % 20.5 % (20.0-50.0) 03/20/18 17:15 Monocytes % 9.3 % (2.0-10.0) 03/20/18 17:15 Eosinophils % 0.7 % (0.0-5.0) 03/20/18 17:15 Basophils % 0.4 % (0.0-2.0) 03/20/18 17:15 Sodium 128 mEq/L (136-145) L 03/20/18 17:15 Potassium 4.4 mEq/L (3.5-5.1) 03/20/18 17:15 Chloride 98 mEq/L (98-107) 03/20/18 17:15 Carbon Dioxide 24.8 mEq/L (21.0-31.0) 03/20/18 17:15 Anion Gap 9.6 (7.0-16.0) 03/20/18 17:15 BUN 14 mg/dL (7-25) 03/20/18 17:15 Creatinine 1.0 mg/dL (0.7-1.3) 03/20/18 17:15 Est GFR ( Amer) > 60.0 ml/min (>90) 03/20/18 17:15 Est GFR (Non-Af Amer) > 60.0 ml/min 03/20/18 17:15 BUN/Creatinine Ratio 14.0 03/20/18 17:15 Glucose 95 mg/dL (70-105) 03/20/18 17:15 Calcium 9.9 mg/dL (8.6-10.3) 03/20/18 17:15 Total Bilirubin 0.6 mg/dL (0.3-1.0) 03/20/18 17:15 AST 13 U/L (13-39) 03/20/18 17:15 ALT 8 U/L (7-52) 03/20/18 17:15 Alkaline Phosphatase 65 U/L (34-104) 03/20/18 17:15 Total Protein 7.1 gm/dL (6.0-8.3) 03/20/18 17:15 Albumin 4.2 gm/dL (4.2-5.5) 03/20/18 17:15 Globulin 2.9 gm/dL 03/20/18 17:15 Albumin/Globulin Ratio 1.5 (1.0-1.8) 03/20/18 17:15 Triglycerides 67 mg/dL (<150) 03/20/18 17:15 Cholesterol 138 mg/dL (<200) 03/20/18 17:15 LDL Cholesterol Direct 74 mg/dL (75-193) L 03/20/18 17:15 HDL Cholesterol 52 mg/dL (23-92) 03/20/18 17:15 Urine Source CLEAN C 03/20/18 16:40 Urine Color YELLOW 03/20/18 16:40 Urine Clarity CLEAR (CLEAR) 03/20/18 16:40 Urine pH 6.5 (4.6 - 8.0) 03/20/18 16:40 Ur Specific [place] <= 1.005 (1.005-1.030) 03/20/18 16:40 Urine Protein NEGATIVE mg/dL (NEGATIVE) 03/20/18 16:40 Urine Glucose (UA) NEGATIVE mg/dL (NEGATIVE) 03/20/18 16:40 Urine Ketones NEGATIVE mg/dL (NEGATIVE) 03/20/18 16:40 Urine Blood NEGATIVE (NEGATIVE) 03/20/18 16:40 Urine Nitrate NEGATIVE (NEGATIVE) 03/20/18 16:40 Urine Bilirubin NEGATIVE (NEGATIVE) 03/20/18 16:40 Urine Urobilinogen 0.2 E.U./dL (0.2 - 1.0) 03/20/18 16:40 Ur Leukocyte Esterase NEGATIVE (NEGATIVE) 03/20/18 16:40 Urine RBC 0-2 /hpf (0-5) H 03/20/18 16:40 Urine WBC 0-2 /hpf (0-5) 03/20/18 16:40 Ur Epithelial Cells FEW /lpf (FEW) 03/20/18 16:40 Urine Bacteria OCCASIONAL /hpf (NONE SEEN) 03/20/18 16:40 - Physical Exam Vitals and I&O: Vital Signs Temp 98.4 F 03/30/18 06:00 Pulse 55 03/30/18 06:00 Resp 18 03/30/18 06:00 BP 106/62 03/30/18 06:00 Pulse Ox 99 03/30/18 06:00 Intake & Output 03/29/18 03/30/18 03/30/18 18:59 06:59 18:59 Intake Total 1500 240 Balance 1500 240 Weight (lbs) 88.904 kg Intake: Oral 1500 240 Other: # Voids 3 # Bowel Movements 0 Stool Characteristics Soft Weight Source Bedscale Active Medications: Current Medications Acetaminophen (Tylenol) 650 mg PO Q4HR PRN PRN Reason: Mild Pain / Temp above 100 Stop: 05/19/18 21:18 Last Admin: 03/28/18 15:21 Dose: 650 mg Al Hydrox/Mg Hydrox/Simethicone (Maalox) 30 ml PO Q4HR PRN PRN Reason: GI DISTRESS Stop: 05/19/18 21:18 Docusate Sodium (Colace) 100 mg PO BID KB Stop: 05/20/18 08:59 Last Admin: 03/30/18 08:47 Dose: 100 mg Enoxaparin Sodium (Lovenox) 30 mg SUBQ Q12HR KB Stop: 05/20/18 08:59 Last Admin: 03/30/18 08:47 Dose: 30 mg Magnesium Hydroxide (Milk Of Magnesia) 30 ml PO HS PRN PRN Reason: IF ORDERED STOOL SOFTENERS INE Stop: 05/19/18 21:41 Risperidone (Risperdal) 3 mg PO BID [facility]; Protocol Stop: 05/20/18 08:59 Last Admin: 03/30/18 08:47 Dose: 3 mg Assessment/Plan - Problem List Patient Problems: All Active Problems AGITATION AND AGGRESSION (Acute) Nutritional Asmnt/Malnutr-PDOC - Dietary Evaluation Malnutrition Findings (Please click <Entered> for more info): Nutritional Asmnt/Malnutrition Start: 03/25/18 14: 21 Text: Status: Complete Freq: Protocol: Document 03/25/18 14:21 LCHENG (Rec: 03/25/18 14:27 [email or web address] Nutritional Asmnt/Malnutrition Patient General Information Nutritional Screening Moderate Risk Diagnosis psychosis NOS Pertinent Medical Hx/Surgical Hx arthritis, DVT, psychosis Subjective Information Pt seen lying in bed, awake. Pt stated good food, no food preference provided. Per EMR, PO intake 100%, Current Diet Order/ Nutrition Support regular Pertinent Medications colace, risperdal Pertinent Labs 03/20 Na 128 Nutritional Hx/Data Height 1.83 m Height (Calculated Centimeters) 182.9 Current Weight (lbs) 88.904 kg Weight (Calculated Kilograms) 88.9 Weight (Calculated Grams) 43178.1 [place] Body Weight 178 Body Mass Index (BMI) 26.6 Weight Status Approriate GI Symptoms GI Symptoms None Last BM 03/24 Difficult in: None Skin Integrity/Comment: intact Current %PO Good (75-100%) Estimated Nutritional Goals BEE in Kcals: Using Current wt Calories/Kcals/Kg 23-27 Kcals Calculated 9011-2050 Protein: Using Current wt Protein g/k.8-1 Protein Calculated 71-89 Fluid: ml 2047-2403ml (1ml/kcal) Nutritional Problem No current Nutrition Prob Problem N/A Intervention/Recommendation Comments 1. Continue with regular diet as ordered. 2. Monitor PO intake, wt, labs and skin integrity 3. F/U as low risk in 7 days, 10/3 Expected Outcomes/Goals Expected Outcomes/Goals 1. PO intake to meet at least 75% of nutritional needs. 2. Wt stability, skin to remain intact, labs to approach WNL.
--- NOTE | 2018-03-30 18:34 | Progress Notes ---
DATE: 03/29/2018 ADDENDUM ASSESSMENT: The patient is still psychotic and needs direction. TREATMENT PLAN: Continue to monitor his behavior and his condition and continue to adjust psychotropic medications and work on behavioral modifications. JOB# [id number]
--- NOTE | 2018-03-31 03:37 | Progress Notes ---
DATE: 03/30/2018 The patient is agitated, irritable, hitting staff, aggressive, that is why he is in the hospital and not following directions. The patient mumbling, stating he is coming from [place], other times telling me he is coming from [place], talking about money. He states that he was somewhat aggressive when he came to the hospital. The patient was seen by Dr. Guo. The patient still unpredictable, pacing up and down, guarded, ongoing behavioral disturbances, but calmer, more cooperative. Staff noting he is calmer, seems to be following directions, sleeping well. Poorly oriented. We will continue to monitor, adjust and titrate medications. JOB# [id number]
[2018-03-31] MEDS: Enoxaparin 30 mg/0.3 mL 0.3mL Syr SUBQ SCH ×2 (08:58→20:47)
[2018-03-31] MEDS: Multivitamin w/ Minerals Tab PO SCH (08:58)
--- NOTE | 2018-03-31 13:36 | Internal Medicine Prog Note ---
Internal Medicine Subjective - Subjective Service Date: 03/31/18 Patient is:: awake, verbal Per staff patient has:: tolerating meds Internal Medicine Objective - Results Result Diagrams: 03/20/18 17:15 03/20/18 17:15 Recent Labs: Laboratory Last Values WBC 7.8 Th/cmm (4.8-10.8) 03/20/18 17:15 RBC 4.56 Mil/cmm (4.30-5.70) 03/20/18 17:15 Hgb 13.9 gm/dL (12-16) 03/20/18 17:15 Hct 41.0 % (41.0-60) 03/20/18 17:15 MCV 89.8 fl (80-99) 03/20/18 17:15 MCH 30.4 pg (26.0-30.0) H 03/20/18 17:15 MCHC Differential 33.9 pg (28.0-36.0) 03/20/18 17:15 RDW 14.0 % (11.5-20.0) 03/20/18 17:15 Plt Count 201 Th/cmm (150-400) 03/20/18 17:15 MPV 7.3 fl 03/20/18 17:15 Neutrophils % 69.1 % (40.0-80.0) 03/20/18 17:15 Lymphocytes % 20.5 % (20.0-50.0) 03/20/18 17:15 Monocytes % 9.3 % (2.0-10.0) 03/20/18 17:15 Eosinophils % 0.7 % (0.0-5.0) 03/20/18 17:15 Basophils % 0.4 % (0.0-2.0) 03/20/18 17:15 Sodium 128 mEq/L (136-145) L 03/20/18 17:15 Potassium 4.4 mEq/L (3.5-5.1) 03/20/18 17:15 Chloride 98 mEq/L (98-107) 03/20/18 17:15 Carbon Dioxide 24.8 mEq/L (21.0-31.0) 03/20/18 17:15 Anion Gap 9.6 (7.0-16.0) 03/20/18 17:15 BUN 14 mg/dL (7-25) 03/20/18 17:15 Creatinine 1.0 mg/dL (0.7-1.3) 03/20/18 17:15 Est GFR ( Amer) > 60.0 ml/min (>90) 03/20/18 17:15 Est GFR (Non-Af Amer) > 60.0 ml/min 03/20/18 17:15 BUN/Creatinine Ratio 14.0 03/20/18 17:15 Glucose 95 mg/dL (70-105) 03/20/18 17:15 Calcium 9.9 mg/dL (8.6-10.3) 03/20/18 17:15 Total Bilirubin 0.6 mg/dL (0.3-1.0) 03/20/18 17:15 AST 13 U/L (13-39) 03/20/18 17:15 ALT 8 U/L (7-52) 03/20/18 17:15 Alkaline Phosphatase 65 U/L (34-104) 03/20/18 17:15 Total Protein 7.1 gm/dL (6.0-8.3) 03/20/18 17:15 Albumin 4.2 gm/dL (4.2-5.5) 03/20/18 17:15 Globulin 2.9 gm/dL 03/20/18 17:15 Albumin/Globulin Ratio 1.5 (1.0-1.8) 03/20/18 17:15 Triglycerides 67 mg/dL (<150) 03/20/18 17:15 Cholesterol 138 mg/dL (<200) 03/20/18 17:15 LDL Cholesterol Direct 74 mg/dL (75-193) L 03/20/18 17:15 HDL Cholesterol 52 mg/dL (23-92) 03/20/18 17:15 Urine Source CLEAN C 03/20/18 16:40 Urine Color YELLOW 03/20/18 16:40 Urine Clarity CLEAR (CLEAR) 03/20/18 16:40 Urine pH 6.5 (4.6 - 8.0) 03/20/18 16:40 Ur Specific [place] <= 1.005 (1.005-1.030) 03/20/18 16:40 Urine Protein NEGATIVE mg/dL (NEGATIVE) 03/20/18 16:40 Urine Glucose (UA) NEGATIVE mg/dL (NEGATIVE) 03/20/18 16:40 Urine Ketones NEGATIVE mg/dL (NEGATIVE) 03/20/18 16:40 Urine Blood NEGATIVE (NEGATIVE) 03/20/18 16:40 Urine Nitrate NEGATIVE (NEGATIVE) 03/20/18 16:40 Urine Bilirubin NEGATIVE (NEGATIVE) 03/20/18 16:40 Urine Urobilinogen 0.2 E.U./dL (0.2 - 1.0) 03/20/18 16:40 Ur Leukocyte Esterase NEGATIVE (NEGATIVE) 03/20/18 16:40 Urine RBC 0-2 /hpf (0-5) H 03/20/18 16:40 Urine WBC 0-2 /hpf (0-5) 03/20/18 16:40 Ur Epithelial Cells FEW /lpf (FEW) 03/20/18 16:40 Urine Bacteria OCCASIONAL /hpf (NONE SEEN) 03/20/18 16:40 - Physical Exam Vitals and I&O: Vital Signs Temp 98.2 F 03/31/18 06:18 Pulse 51 03/31/18 06:18 Resp 20 03/31/18 06:18 BP 105/66 03/31/18 06:18 Pulse Ox 96 03/31/18 06:18 Intake & Output 03/30/18 03/31/18 03/31/18 18:59 06:59 18:59 Intake Total 1400 360 Balance 1400 360 Intake: Oral 1400 360 Other: # Voids 4 2 # Bowel Movements 1 0 Stool Characteristics Soft Active Medications: Current Medications Acetaminophen (Tylenol) 650 mg PO Q4HR PRN PRN Reason: Mild Pain / Temp above 100 Stop: 05/19/18 21:18 Last Admin: 03/28/18 15:21 Dose: 650 mg Al Hydrox/Mg Hydrox/Simethicone (Maalox) 30 ml PO Q4HR PRN PRN Reason: GI DISTRESS Stop: 05/19/18 21:18 Docusate Sodium (Colace) 100 mg PO BID KB Stop: 05/20/18 08:59 Last Admin: 03/31/18 08:58 Dose: 100 mg Enoxaparin Sodium (Lovenox) 30 mg SUBQ Q12HR KB Stop: 05/20/18 08:59 Last Admin: 03/31/18 08:58 Dose: 30 mg Magnesium Hydroxide (Milk Of Magnesia) 30 ml PO HS PRN PRN Reason: IF ORDERED STOOL SOFTENERS INE Stop: 05/19/18 21:41 Risperidone (Risperdal) 3 mg PO BID [facility]; Protocol Stop: 05/20/18 08:59 Last Admin: 03/31/18 08:58 Dose: 3 mg General: alert HEENT: NC/AT, PERRLA Neck: Supple Lungs: CTAB Cardiovascular: RRR, Normal S1, Normal S2 Abdomen: soft, non-tender, non-distended Extremities: excoriation Internal Medicine Assmt/Plan - Assessment Assessment: Agitation, arthritis, psychosis, chronic pains, and history of deep venous thrombosis. . - Plan Plan: contiue daily inr continue current plan of care Nutritional Asmnt/Malnutr-PDOC - Dietary Evaluation Malnutrition Findings (Please click <Entered> for more info): Nutritional Asmnt/Malnutrition Start: 03/25/18 14: 21 Text: Status: Complete Freq: Protocol: Document 03/25/18 14:21 LCHENG (Rec: 03/25/18 14:27 LCFELECIAG [email or web address]) Nutritional Asmnt/Malnutrition Patient General Information Nutritional Screening Moderate Risk Diagnosis psychosis NOS Pertinent Medical Hx/Surgical Hx arthritis, DVT, psychosis Subjective Information Pt seen lying in bed, awake. Pt stated good food, no food preference provided. Per EMR, PO intake 100%, Current Diet Order/ Nutrition Support regular Pertinent Medications colace, risperdal Pertinent Labs 03/20 Na 128 Nutritional Hx/Data Height 6 ft Height (Calculated Centimeters) 182.9 Current Weight (lbs) 196 lb Weight (Calculated Kilograms) 88.9 Weight (Calculated Grams) 37535.1 [place] Body Weight 178 Body Mass Index (BMI) 26.6 Weight Status Approriate GI Symptoms GI Symptoms None Last BM 03/24 Difficult in: None Skin Integrity/Comment: intact Current %PO Good (75-100%) Estimated Nutritional Goals BEE in Kcals: Using Current wt Calories/Kcals/Kg 23-27 Kcals Calculated 1442-5674 Protein: Using Current wt Protein g/k.8-1 Protein Calculated 71-89 Fluid: ml 2047-2403ml (1ml/kcal) Nutritional Problem No current Nutrition Prob Problem N/A Intervention/Recommendation Comments 1. Continue with regular diet as ordered. 2. Monitor PO intake, wt, labs and skin integrity 3. F/U as low risk in 7 days, 04/01 Expected Outcomes/Goals Expected Outcomes/Goals 1. PO intake to meet at least 75% of nutritional needs. 2. Wt stability, skin to remain intact, labs to approach WNL.
--- NOTE | 2018-04-01 04:05 | Progress Notes ---
DATE: 03/31/2018 The patient in the hospital, agitated, irritable, hitting people, seems to be calmer, stating that he is "calmer, coming from [place]." The patient with poor orientation, calm, ongoing mumbling to self, internal stimuli, eating on his own volition, seems to be calmer and likely approaching his baseline and more redirectable. ASSESSMENT: The patient seems to be calmer, more redirectable, likely approaching his baseline. We will continue to monitor. The patient still with some pacing episodes, irritability. JOB# [id number]
[2018-04-01] MEDS: Enoxaparin 30 mg/0.3 mL 0.3mL Syr SUBQ SCH ×2 (08:13→21:24)
[2018-04-01] MEDS: Multivitamin w/ Minerals Tab PO SCH (08:13)
--- NOTE | 2018-04-01 16:57 | General Progress Note ---
Objective - Results Result Diagrams: 03/20/18 17:15 03/20/18 17:15 Recent Labs: Laboratory Last Values WBC 7.8 Th/cmm (4.8-10.8) 03/20/18 17:15 RBC 4.56 Mil/cmm (4.30-5.70) 03/20/18 17:15 Hgb 13.9 gm/dL (12-16) 03/20/18 17:15 Hct 41.0 % (41.0-60) 03/20/18 17:15 MCV 89.8 fl (80-99) 03/20/18 17:15 MCH 30.4 pg (26.0-30.0) H 03/20/18 17:15 MCHC Differential 33.9 pg (28.0-36.0) 03/20/18 17:15 RDW 14.0 % (11.5-20.0) 03/20/18 17:15 Plt Count 201 Th/cmm (150-400) 03/20/18 17:15 MPV 7.3 fl 03/20/18 17:15 Neutrophils % 69.1 % (40.0-80.0) 03/20/18 17:15 Lymphocytes % 20.5 % (20.0-50.0) 03/20/18 17:15 Monocytes % 9.3 % (2.0-10.0) 03/20/18 17:15 Eosinophils % 0.7 % (0.0-5.0) 03/20/18 17:15 Basophils % 0.4 % (0.0-2.0) 03/20/18 17:15 Sodium 128 mEq/L (136-145) L 03/20/18 17:15 Potassium 4.4 mEq/L (3.5-5.1) 03/20/18 17:15 Chloride 98 mEq/L (98-107) 03/20/18 17:15 Carbon Dioxide 24.8 mEq/L (21.0-31.0) 03/20/18 17:15 Anion Gap 9.6 (7.0-16.0) 03/20/18 17:15 BUN 14 mg/dL (7-25) 03/20/18 17:15 Creatinine 1.0 mg/dL (0.7-1.3) 03/20/18 17:15 Est GFR ( Amer) > 60.0 ml/min (>90) 03/20/18 17:15 Est GFR (Non-Af Amer) > 60.0 ml/min 03/20/18 17:15 BUN/Creatinine Ratio 14.0 03/20/18 17:15 Glucose 95 mg/dL (70-105) 03/20/18 17:15 Calcium 9.9 mg/dL (8.6-10.3) 03/20/18 17:15 Total Bilirubin 0.6 mg/dL (0.3-1.0) 03/20/18 17:15 AST 13 U/L (13-39) 03/20/18 17:15 ALT 8 U/L (7-52) 03/20/18 17:15 Alkaline Phosphatase 65 U/L (34-104) 03/20/18 17:15 Total Protein 7.1 gm/dL (6.0-8.3) 03/20/18 17:15 Albumin 4.2 gm/dL (4.2-5.5) 03/20/18 17:15 Globulin 2.9 gm/dL 03/20/18 17:15 Albumin/Globulin Ratio 1.5 (1.0-1.8) 03/20/18 17:15 Triglycerides 67 mg/dL (<150) 03/20/18 17:15 Cholesterol 138 mg/dL (<200) 03/20/18 17:15 LDL Cholesterol Direct 74 mg/dL (75-193) L 03/20/18 17:15 HDL Cholesterol 52 mg/dL (23-92) 03/20/18 17:15 Urine Source CLEAN C 03/20/18 16:40 Urine Color YELLOW 03/20/18 16:40 Urine Clarity CLEAR (CLEAR) 03/20/18 16:40 Urine pH 6.5 (4.6 - 8.0) 03/20/18 16:40 Ur Specific [place] <= 1.005 (1.005-1.030) 03/20/18 16:40 Urine Protein NEGATIVE mg/dL (NEGATIVE) 03/20/18 16:40 Urine Glucose (UA) NEGATIVE mg/dL (NEGATIVE) 03/20/18 16:40 Urine Ketones NEGATIVE mg/dL (NEGATIVE) 03/20/18 16:40 Urine Blood NEGATIVE (NEGATIVE) 03/20/18 16:40 Urine Nitrate NEGATIVE (NEGATIVE) 03/20/18 16:40 Urine Bilirubin NEGATIVE (NEGATIVE) 03/20/18 16:40 Urine Urobilinogen 0.2 E.U./dL (0.2 - 1.0) 03/20/18 16:40 Ur Leukocyte Esterase NEGATIVE (NEGATIVE) 03/20/18 16:40 Urine RBC 0-2 /hpf (0-5) H 03/20/18 16:40 Urine WBC 0-2 /hpf (0-5) 03/20/18 16:40 Ur Epithelial Cells FEW /lpf (FEW) 03/20/18 16:40 Urine Bacteria OCCASIONAL /hpf (NONE SEEN) 03/20/18 16:40 - Physical Exam Vitals and I&O: Vital Signs Temp 98.3 F 04/01/18 14:00 Pulse 53 04/01/18 14:00 Resp 20 04/01/18 14:00 BP 96/56 04/01/18 14:00 Pulse Ox 98 04/01/18 14:00 Intake & Output 03/31/18 04/01/18 04/01/18 18:59 06:59 18:59 Intake Total 900 120 Balance 900 120 Intake: Oral 900 120 Other: # Voids 3 3 # Bowel Movements 1 Stool Characteristics Soft Active Medications: Current Medications Acetaminophen (Tylenol) 650 mg PO Q4HR PRN PRN Reason: Mild Pain / Temp above 100 Stop: 05/19/18 21:18 Last Admin: 03/28/18 15:21 Dose: 650 mg Al Hydrox/Mg Hydrox/Simethicone (Maalox) 30 ml PO Q4HR PRN PRN Reason: GI DISTRESS Stop: 05/19/18 21:18 Docusate Sodium (Colace) 100 mg PO BID KB Stop: 05/20/18 08:59 Last Admin: 04/01/18 16:03 Dose: 100 mg Enoxaparin Sodium (Lovenox) 30 mg SUBQ Q12HR KB Stop: 05/20/18 08:59 Last Admin: 04/01/18 08:13 Dose: 30 mg Magnesium Hydroxide (Milk Of Magnesia) 30 ml PO HS PRN PRN Reason: IF ORDERED STOOL SOFTENERS INE Stop: 05/19/18 21:41 Risperidone (Risperdal) 3 mg PO BID [facility]; Protocol Stop: 05/20/18 08:59 Last Admin: 04/01/18 16:03 Dose: 3 mg Assessment/Plan - Problem List Patient Problems: All Active Problems AGITATION AND AGGRESSION (Acute) Nutritional Asmnt/Malnutr-PDOC - Dietary Evaluation Malnutrition Findings (Please click <Entered> for more info): Nutritional Asmnt/Malnutrition Start: 03/25/18 14: 21 Text: Status: Complete Freq: Protocol: Document 03/25/18 14:21 UTE (Rec: 03/25/18 14:27 [email or web address] Nutritional Asmnt/Malnutrition Patient General Information Nutritional Screening Moderate Risk Diagnosis psychosis NOS Pertinent Medical Hx/Surgical Hx arthritis, DVT, psychosis Subjective Information Pt seen lying in bed, awake. Pt stated good food, no food preference provided. Per EMR, PO intake 100%, Current Diet Order/ Nutrition Support regular Pertinent Medications colace, risperdal Pertinent Labs 03/20 Na 128 Nutritional Hx/Data Height 1.83 m Height (Calculated Centimeters) 182.9 Current Weight (lbs) 88.904 kg Weight (Calculated Kilograms) 88.9 Weight (Calculated Grams) 34852.1 [place] Body Weight 178 Body Mass Index (BMI) 26.6 Weight Status Approriate GI Symptoms GI Symptoms None Last BM 03/24 Difficult in: None Skin Integrity/Comment: intact Current %PO Good (75-100%) Estimated Nutritional Goals BEE in Kcals: Using Current wt Calories/Kcals/Kg 23-27 Kcals Calculated 7693-8201 Protein: Using Current wt Protein g/k.8-1 Protein Calculated 71-89 Fluid: ml 2047-2403ml (1ml/kcal) Nutritional Problem No current Nutrition Prob Problem N/A Intervention/Recommendation Comments 1. Continue with regular diet as ordered. 2. Monitor PO intake, wt, labs and skin integrity 3. F/U as low risk in 7 days, 10/3 Expected Outcomes/Goals Expected Outcomes/Goals 1. PO intake to meet at least 75% of nutritional needs. 2. Wt stability, skin to remain intact, labs to approach WNL.
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
[2018-04-02] MEDS: Multivitamin w/ Minerals Tab PO SCH (08:56)
[2018-04-02] MEDS: Enoxaparin 30 mg/0.3 mL 0.3mL Syr SUBQ SCH ×2 (08:57→21:08)
--- NOTE | 2018-04-02 15:52 | General Progress Note ---
Subjective - Review of Systems Events since last encounter: patient is paranoid disorganized Objective - Results Result Diagrams: 03/20/18 17:15 03/20/18 17:15 Recent Labs: Laboratory Last Values WBC 7.8 Th/cmm (4.8-10.8) 03/20/18 17:15 RBC 4.56 Mil/cmm (4.30-5.70) 03/20/18 17:15 Hgb 13.9 gm/dL (12-16) 03/20/18 17:15 Hct 41.0 % (41.0-60) 03/20/18 17:15 MCV 89.8 fl (80-99) 03/20/18 17:15 MCH 30.4 pg (26.0-30.0) H 03/20/18 17:15 MCHC Differential 33.9 pg (28.0-36.0) 03/20/18 17:15 RDW 14.0 % (11.5-20.0) 03/20/18 17:15 Plt Count 201 Th/cmm (150-400) 03/20/18 17:15 MPV 7.3 fl 03/20/18 17:15 Neutrophils % 69.1 % (40.0-80.0) 03/20/18 17:15 Lymphocytes % 20.5 % (20.0-50.0) 03/20/18 17:15 Monocytes % 9.3 % (2.0-10.0) 03/20/18 17:15 Eosinophils % 0.7 % (0.0-5.0) 03/20/18 17:15 Basophils % 0.4 % (0.0-2.0) 03/20/18 17:15 Sodium 128 mEq/L (136-145) L 03/20/18 17:15 Potassium 4.4 mEq/L (3.5-5.1) 03/20/18 17:15 Chloride 98 mEq/L (98-107) 03/20/18 17:15 Carbon Dioxide 24.8 mEq/L (21.0-31.0) 03/20/18 17:15 Anion Gap 9.6 (7.0-16.0) 03/20/18 17:15 BUN 14 mg/dL (7-25) 03/20/18 17:15 Creatinine 1.0 mg/dL (0.7-1.3) 03/20/18 17:15 Est GFR ( Amer) > 60.0 ml/min (>90) 03/20/18 17:15 Est GFR (Non-Af Amer) > 60.0 ml/min 03/20/18 17:15 BUN/Creatinine Ratio 14.0 03/20/18 17:15 Glucose 95 mg/dL (70-105) 03/20/18 17:15 Calcium 9.9 mg/dL (8.6-10.3) 03/20/18 17:15 Total Bilirubin 0.6 mg/dL (0.3-1.0) 03/20/18 17:15 AST 13 U/L (13-39) 03/20/18 17:15 ALT 8 U/L (7-52) 03/20/18 17:15 Alkaline Phosphatase 65 U/L (34-104) 03/20/18 17:15 Total Protein 7.1 gm/dL (6.0-8.3) 03/20/18 17:15 Albumin 4.2 gm/dL (4.2-5.5) 03/20/18 17:15 Globulin 2.9 gm/dL 03/20/18 17:15 Albumin/Globulin Ratio 1.5 (1.0-1.8) 03/20/18 17:15 Triglycerides 67 mg/dL (<150) 03/20/18 17:15 Cholesterol 138 mg/dL (<200) 03/20/18 17:15 LDL Cholesterol Direct 74 mg/dL (75-193) L 03/20/18 17:15 HDL Cholesterol 52 mg/dL (23-92) 03/20/18 17:15 Urine Source CLEAN C 03/20/18 16:40 Urine Color YELLOW 03/20/18 16:40 Urine Clarity CLEAR (CLEAR) 03/20/18 16:40 Urine pH 6.5 (4.6 - 8.0) 03/20/18 16:40 Ur Specific [place] <= 1.005 (1.005-1.030) 03/20/18 16:40 Urine Protein NEGATIVE mg/dL (NEGATIVE) 03/20/18 16:40 Urine Glucose (UA) NEGATIVE mg/dL (NEGATIVE) 03/20/18 16:40 Urine Ketones NEGATIVE mg/dL (NEGATIVE) 03/20/18 16:40 Urine Blood NEGATIVE (NEGATIVE) 03/20/18 16:40 Urine Nitrate NEGATIVE (NEGATIVE) 03/20/18 16:40 Urine Bilirubin NEGATIVE (NEGATIVE) 03/20/18 16:40 Urine Urobilinogen 0.2 E.U./dL (0.2 - 1.0) 03/20/18 16:40 Ur Leukocyte Esterase NEGATIVE (NEGATIVE) 03/20/18 16:40 Urine RBC 0-2 /hpf (0-5) H 03/20/18 16:40 Urine WBC 0-2 /hpf (0-5) 03/20/18 16:40 Ur Epithelial Cells FEW /lpf (FEW) 03/20/18 16:40 Urine Bacteria OCCASIONAL /hpf (NONE SEEN) 03/20/18 16:40 - Physical Exam Vitals and I&O: Vital Signs Temp 97.2 F 04/02/18 14:00 Pulse 50 04/02/18 14:00 Resp 20 04/02/18 14:00 BP 103/58 04/02/18 14:00 Pulse Ox 97 04/02/18 14:00 Intake & Output 04/01/18 04/02/18 04/02/18 18:59 06:59 18:59 Intake Total 1200 Balance 1200 Intake: Oral 1200 Other: # Bowel Movements 1 Stool Characteristics Soft Soft Active Medications: Current Medications Acetaminophen (Tylenol) 650 mg PO Q4HR PRN PRN Reason: Mild Pain / Temp above 100 Stop: 05/19/18 21:18 Last Admin: 03/28/18 15:21 Dose: 650 mg Al Hydrox/Mg Hydrox/Simethicone (Maalox) 30 ml PO Q4HR PRN PRN Reason: GI DISTRESS Stop: 05/19/18 21:18 Docusate Sodium (Colace) 100 mg PO BID KB Stop: 05/20/18 08:59 Last Admin: 04/02/18 08:56 Dose: 100 mg Enoxaparin Sodium (Lovenox) 30 mg SUBQ Q12HR KB Stop: 05/20/18 08:59 Last Admin: 04/02/18 08:57 Dose: 30 mg Magnesium Hydroxide (Milk Of Magnesia) 30 ml PO HS PRN PRN Reason: IF ORDERED STOOL SOFTENERS INE Stop: 05/19/18 21:41 Risperidone (Risperdal) 3 mg PO BID BK; Protocol Stop: 05/20/18 08:59 Last Admin: 04/02/18 08:56 Dose: 3 mg Assessment/Plan - Problem List Patient Problems: All Active Problems AGITATION AND AGGRESSION (Acute) Nutritional Asmnt/Malnutr-PDOC - Dietary Evaluation Malnutrition Findings (Please click <Entered> for more info): Nutritional Asmnt/Malnutrition Start: 03/25/18 14: 21 Text: Status: Complete Freq: Protocol: Document 03/25/18 14:21 FELECIA (Rec[facility]25[facility]18 14[email or web address] Nutritional Asmnt/Malnutrition Patient General Information Nutritional Screening Moderate Risk Diagnosis psychosis NOS Pertinent Medical Hx/Surgical Hx arthritis, DVT, psychosis Subjective Information Pt seen lying in bed, awake. Pt stated good food, no food preference provided. Per EMR, PO intake 100%, Current Diet Order/ Nutrition Support regular Pertinent Medications colace, risperdal Pertinent Labs 03/20 Na 128 Nutritional Hx/Data Height 1.83 m Height (Calculated Centimeters) 182.9 Current Weight (lbs) 88.904 kg Weight (Calculated Kilograms) 88.9 Weight (Calculated Grams) 09215.1 [place] Body Weight 178 Body Mass Index (BMI) 26.6 Weight Status Approriate GI Symptoms GI Symptoms None Last BM 03/24 Difficult in: None Skin Integrity/Comment: intact Current %PO Good (75-100%) Estimated Nutritional Goals BEE in Kcals: Using Current wt Calories/Kcals/Kg 23-27 Kcals Calculated 7447-7154 Protein: Using Current wt Protein g/k.8-1 Protein Calculated 71-89 Fluid: ml 2047-2403ml (1ml/kcal) Nutritional Problem No current Nutrition Prob Problem N/A Intervention/Recommendation Comments 1. Continue with regular diet as ordered. 2. Monitor PO intake, wt, labs and skin integrity 3. F/U as low risk in 7 days, 10/3 Expected Outcomes/Goals Expected Outcomes/Goals 1. PO intake to meet at least 75% of nutritional needs. 2. Wt stability, skin to remain intact, labs to approach WNL.
--- NOTE | 2018-04-02 23:35 | Progress Notes ---
DATE: Dr. Guo covering for Dr. Torres. SUBJECTIVE: Chart reviewed and the patient interviewed. Also discussed the patient's condition with the staff and reviewed records and labs. The patient is still anxious and he is still in a depressed mood. The patient also showed psychomotor retardation. The patient also is still focused on smoking and also wants to be left alone. He also seems to be calmer and try to socialize, but he is preoccupied with smoking. He denies any thoughts of suicide or homicide. ASSESSMENT: The patient is less agitated, but still depressed. TREATMENT PLAN: We will continue monitoring his behavior and his condition closely. Also, continue adjusting psychotropic medications and followup. [facility]# [id number]
--- NOTE | 2018-04-03 06:48 | Progress Notes ---
DATE: SUBJECTIVE: Chart reviewed and the patient interviewed. Also discussed the patient's condition with the staff and reviewed records and labs. The patient is calmer and he still seems to be depressed. The patient also is still withdrawn and interacting minimally with others. The patient refused to take ____ injection yesterday for no reason, but he is compliant with taking all other medications. At the same time, the patient denies any side effects of medications and slightly easier to redirect him. ASSESSMENT: The patient still needs close monitoring. TREATMENT PLAN: Continue to monitor his behavior and his condition and continue to work on his ineffective coping and followup. JOB# [id number]
[2018-04-03] MEDS: Enoxaparin 30 mg/0.3 mL 0.3mL Syr SUBQ SCH ×2 (08:34→20:23)
[2018-04-03] MEDS: Multivitamin w/ Minerals Tab PO SCH (08:36)
[2018-04-03 08:59] LABS: ALB/GLOB RATIO 1.3 (1.0-1.8); ALBUMIN 4.2 gm/dL (4.2-5.5); ALKALINE PHOSPHATASE 69 U/L (34-104); ANION GAP 9.8 (7.0-16.0); BILIRUBIN,TOTAL 0.6 mg/dL (0.3-1.0); BUN - UREA NITROGEN 20 mg/dL (7-25); CARBON DIOXIDE 29.4 mEq/L (21.0-31.0); CHLORIDE 100 mEq/L (98-107); CREATININE - SERUM 1.1 mg/dL (0.7-1.3); GFR AFRICAN-AMERICAN > 60.0 ml/min (>90); GFR NON AFRICAN-AMERICAN > 60.0 ml/min; GLUCOSE 145 mg/dL (70-105); POTASSIUM SERUM 4.2 mEq/L (3.5-5.1); SGOT 11 U/L (13-39); SGPT/ALT 11 U/L (7-52); SODIUM SERUM 135 mEq/L (136-145); TOTAL PROTEIN,SERUM 7.5 gm/dL (6.0-8.3)
--- NOTE | 2018-04-03 19:35 | Internal Medicine Prog Note ---
Internal Medicine Subjective - Subjective Service Date: 04/03/18 Patient is:: awake, verbal Per staff patient has:: tolerating meds Internal Medicine Objective - Results Result Diagrams: 03/20/18 17:15 04/03/18 08:30 Recent Labs: Laboratory Last Values WBC 7.8 Th/cmm (4.8-10.8) 03/20/18 17:15 RBC 4.56 Mil/cmm (4.30-5.70) 03/20/18 17:15 Hgb 13.9 gm/dL (12-16) 03/20/18 17:15 Hct 41.0 % (41.0-60) 03/20/18 17:15 MCV 89.8 fl (80-99) 03/20/18 17:15 MCH 30.4 pg (26.0-30.0) H 03/20/18 17:15 MCHC Differential 33.9 pg (28.0-36.0) 03/20/18 17:15 RDW 14.0 % (11.5-20.0) 03/20/18 17:15 Plt Count 201 Th/cmm (150-400) 03/20/18 17:15 MPV 7.3 fl 03/20/18 17:15 Neutrophils % 69.1 % (40.0-80.0) 03/20/18 17:15 Lymphocytes % 20.5 % (20.0-50.0) 03/20/18 17:15 Monocytes % 9.3 % (2.0-10.0) 03/20/18 17:15 Eosinophils % 0.7 % (0.0-5.0) 03/20/18 17:15 Basophils % 0.4 % (0.0-2.0) 03/20/18 17:15 Sodium 135 mEq/L (136-145) L 04/03/18 08:30 Potassium 4.2 mEq/L (3.5-5.1) 04/03/18 08:30 Chloride 100 mEq/L (98-107) 04/03/18 08:30 Carbon Dioxide 29.4 mEq/L (21.0-31.0) 04/03/18 08:30 Anion Gap 9.8 (7.0-16.0) 04/03/18 08:30 BUN 20 mg/dL (7-25) 04/03/18 08:30 Creatinine 1.1 mg/dL (0.7-1.3) 04/03/18 08:30 Est GFR ( Amer) > 60.0 ml/min (>90) 04/03/18 08:30 Est GFR (Non-Af Amer) > 60.0 ml/min 04/03/18 08:30 BUN/Creatinine Ratio 18.2 04/03/18 08:30 Glucose 145 mg/dL (70-105) H 04/03/18 08:30 Calcium 10.0 mg/dL (8.6-10.3) 04/03/18 08:30 Total Bilirubin 0.6 mg/dL (0.3-1.0) 04/03/18 08:30 AST 11 U/L (13-39) L 04/03/18 08:30 ALT 11 U/L (7-52) 04/03/18 08:30 Alkaline Phosphatase 69 U/L (34-104) 04/03/18 08:30 Total Protein 7.5 gm/dL (6.0-8.3) 04/03/18 08:30 Albumin 4.2 gm/dL (4.2-5.5) 04/03/18 08:30 Globulin 3.3 gm/dL 04/03/18 08:30 Albumin/Globulin Ratio 1.3 (1.0-1.8) 04/03/18 08:30 Triglycerides 67 mg/dL (<150) 03/20/18 17:15 Cholesterol 138 mg/dL (<200) 03/20/18 17:15 LDL Cholesterol Direct 74 mg/dL (75-193) L 03/20/18 17:15 HDL Cholesterol 52 mg/dL (23-92) 03/20/18 17:15 Urine Source CLEAN C 03/20/18 16:40 Urine Color YELLOW 03/20/18 16:40 Urine Clarity CLEAR (CLEAR) 03/20/18 16:40 Urine pH 6.5 (4.6 - 8.0) 03/20/18 16:40 Ur Specific [place] <= 1.005 (1.005-1.030) 03/20/18 16:40 Urine Protein NEGATIVE mg/dL (NEGATIVE) 03/20/18 16:40 Urine Glucose (UA) NEGATIVE mg/dL (NEGATIVE) 03/20/18 16:40 Urine Ketones NEGATIVE mg/dL (NEGATIVE) 03/20/18 16:40 Urine Blood NEGATIVE (NEGATIVE) 03/20/18 16:40 Urine Nitrate NEGATIVE (NEGATIVE) 03/20/18 16:40 Urine Bilirubin NEGATIVE (NEGATIVE) 03/20/18 16:40 Urine Urobilinogen 0.2 E.U./dL (0.2 - 1.0) 03/20/18 16:40 Ur Leukocyte Esterase NEGATIVE (NEGATIVE) 03/20/18 16:40 Urine RBC 0-2 /hpf (0-5) H 03/20/18 16:40 Urine WBC 0-2 /hpf (0-5) 03/20/18 16:40 Ur Epithelial Cells FEW /lpf (FEW) 03/20/18 16:40 Urine Bacteria OCCASIONAL /hpf (NONE SEEN) 03/20/18 16:40 - Physical Exam Vitals and I&O: Vital Signs Temp 97.8 F 04/03/18 06:08 Pulse 58 04/03/18 06:08 Resp 18 04/03/18 06:08 BP 102/52 04/03/18 06:08 Pulse Ox 96 04/03/18 06:08 Intake & Output 04/03/18 04/03/18 04/04/18 06:59 18:59 06:59 Intake Total 480 1200 Balance 480 1200 Intake: Oral 480 1200 Other: # Voids 1 # Bowel Movements 1 Stool Characteristics Soft Active Medications: Current Medications Acetaminophen (Tylenol) 650 mg PO Q4HR PRN PRN Reason: Mild Pain / Temp above 100 Stop: 05/19/18 21:18 Last Admin: 03/28/18 15:21 Dose: 650 mg Al Hydrox/Mg Hydrox/Simethicone (Maalox) 30 ml PO Q4HR PRN PRN Reason: GI DISTRESS Stop: 05/19/18 21:18 Docusate Sodium (Colace) 100 mg PO BID KB Stop: 05/20/18 08:59 Last Admin: 04/03/18 17:37 Dose: 100 mg Enoxaparin Sodium (Lovenox) 30 mg SUBQ Q12HR KB Stop: 05/20/18 08:59 Last Admin: 04/03/18 08:34 Dose: Not Given Magnesium Hydroxide (Milk Of Magnesia) 30 ml PO HS PRN PRN Reason: IF ORDERED STOOL SOFTENERS INE Stop: 05/19/18 21:41 Risperidone (Risperdal) 3 mg PO BID KB; Protocol Stop: 05/20/18 08:59 Last Admin: 04/03/18 17:37 Dose: 3 mg General: alert HEENT: NC/AT, PERRLA Neck: Supple Lungs: CTAB Cardiovascular: RRR, Normal S1, Normal S2 Abdomen: soft, non-tender, non-distended Extremities: excoriation Internal Medicine Assmt/Plan - Assessment Assessment: Agitation, arthritis, psychosis, chronic pains, and history of deep venous thrombosis. . - Plan Plan: contiue daily inr continue current plan of care Nutritional Asmnt/Malnutr-PDOC - Dietary Evaluation Malnutrition Findings (Please click <Entered> for more info): Nutritional Asmnt/Malnutrition Start: 03/25/18 14: 21 Text: Status: Complete Freq: Protocol: Document 03/25/18 14:21 LCHENG (Rec: 03/25/18 14:27 [email or web address]) Nutritional Asmnt/Malnutrition Patient General Information Nutritional Screening Moderate Risk Diagnosis psychosis NOS Pertinent Medical Hx/Surgical Hx arthritis, DVT, psychosis Subjective Information Pt seen lying in bed, awake. Pt stated good food, no food preference provided. Per EMR, PO intake 100%, Current Diet Order/ Nutrition Support regular Pertinent Medications colace, risperdal Pertinent Labs 03/20 Na 128 Nutritional Hx/Data Height 6 ft Height (Calculated Centimeters) 182.9 Current Weight (lbs) 196 lb Weight (Calculated Kilograms) 88.9 Weight (Calculated Grams) 46523.1 [place] Body Weight 178 Body Mass Index (BMI) 26.6 Weight Status Approriate GI Symptoms GI Symptoms None Last BM 03/24 Difficult in: None Skin Integrity/Comment: intact Current %PO Good (75-100%) Estimated Nutritional Goals BEE in Kcals: Using Current wt Calories/Kcals/Kg 23-27 Kcals Calculated 1476-7737 Protein: Using Current wt Protein g/k.8-1 Protein Calculated 71-89 Fluid: ml 2047-2403ml (1ml/kcal) Nutritional Problem No current Nutrition Prob Problem N/A Intervention/Recommendation Comments 1. Continue with regular diet as ordered. 2. Monitor PO intake, wt, labs and skin integrity 3. F/U as low risk in 7 days, 04/01 Expected Outcomes/Goals Expected Outcomes/Goals 1. PO intake to meet at least 75% of nutritional needs. 2. Wt stability, skin to remain intact, labs to approach WNL.
[2018-04-04] MEDS: Multivitamin w/ Minerals Tab PO SCH (08:25)
[2018-04-04] MEDS: Enoxaparin 30 mg/0.3 mL 0.3mL Syr SUBQ SCH (08:26)
--- NOTE | 2018-04-04 10:12 | Progress Notes ---
DATE: 04/04/2018 SUBJECTIVE: The patient was seen in the dining area. The patient appears to be guarded and irritable, easily gets frustrated. Otherwise, the patient is in no acute distress. OBJECTIVE: VITAL SIGNS: Temperature 98.1, heart rate of 80, blood pressure 130/76, respirations 19, 99% on room air. HEENT: Head is atraumatic and normocephalic. Eyes: Bilateral conjunctivae are clear. Bilateral pupils are equally round and reactive. NECK: Supple. No JVD. CARDIOVASCULAR: S1 and S2 without murmur. PULMONARY: Clear to auscultation. GASTROINTESTINAL: Soft and nontender without guarding. MUSCULOSKELETAL: No cyanosis. No clubbing. ASSESSMENT: 1. Schizoaffective disorder. 2. Osteoarthritis. 3. History of deep venous thrombosis. PLAN: We will continue to keep the patient inpatient. We will follow up with a psychiatrist to monitor the patient's condition and behavior. Treatment plans were discussed with the patient's nurse. Treatment plans were discussed with Dr. Devlin. JOB# [id number]
--- NOTE | 2018-04-04 18:36 | Progress Notes ---
DATE: 04/04/2018 PSYCHIATRIC PROGRESS NOTE SUBJECTIVE: Chart reviewed and the patient interviewed. Also, discussed the patient's condition with the staff and I reviewed records and labs. The patient seems to be slightly calmer than before. The patient also is still suspicious and paranoid. He also still wants to be left alone and is still in a depressed mood. The patient is also still needs redirections. ASSESSMENT: The patient is still depressed and is still anxious. TREATMENT PLAN: Continue to monitor his behavior and his condition closely. Also, we will continue adjusting psychotropic medications and followup. JOB# [id number]
--- NOTE | 2018-04-05 08:53 | General Progress Note ---
Subjective - Review of Systems Events since last encounter: patient depressed and anxious Objective - Results Result Diagrams: 03/20/18 17:15 04/03/18 08:30 Recent Labs: Laboratory Last Values WBC 7.8 Th/cmm (4.8-10.8) 03/20/18 17:15 RBC 4.56 Mil/cmm (4.30-5.70) 03/20/18 17:15 Hgb 13.9 gm/dL (12-16) 03/20/18 17:15 Hct 41.0 % (41.0-60) 03/20/18 17:15 MCV 89.8 fl (80-99) 03/20/18 17:15 MCH 30.4 pg (26.0-30.0) H 03/20/18 17:15 MCHC Differential 33.9 pg (28.0-36.0) 03/20/18 17:15 RDW 14.0 % (11.5-20.0) 03/20/18 17:15 Plt Count 201 Th/cmm (150-400) 03/20/18 17:15 MPV 7.3 fl 03/20/18 17:15 Neutrophils % 69.1 % (40.0-80.0) 03/20/18 17:15 Lymphocytes % 20.5 % (20.0-50.0) 03/20/18 17:15 Monocytes % 9.3 % (2.0-10.0) 03/20/18 17:15 Eosinophils % 0.7 % (0.0-5.0) 03/20/18 17:15 Basophils % 0.4 % (0.0-2.0) 03/20/18 17:15 Sodium 135 mEq/L (136-145) L 04/03/18 08:30 Potassium 4.2 mEq/L (3.5-5.1) 04/03/18 08:30 Chloride 100 mEq/L (98-107) 04/03/18 08:30 Carbon Dioxide 29.4 mEq/L (21.0-31.0) 04/03/18 08:30 Anion Gap 9.8 (7.0-16.0) 04/03/18 08:30 BUN 20 mg/dL (7-25) 04/03/18 08:30 Creatinine 1.1 mg/dL (0.7-1.3) 04/03/18 08:30 Est GFR ( Amer) > 60.0 ml/min (>90) 04/03/18 08:30 Est GFR (Non-Af Amer) > 60.0 ml/min 04/03/18 08:30 BUN/Creatinine Ratio 18.2 04/03/18 08:30 Glucose 145 mg/dL (70-105) H 04/03/18 08:30 Calcium 10.0 mg/dL (8.6-10.3) 04/03/18 08:30 Total Bilirubin 0.6 mg/dL (0.3-1.0) 04/03/18 08:30 AST 11 U/L (13-39) L 04/03/18 08:30 ALT 11 U/L (7-52) 04/03/18 08:30 Alkaline Phosphatase 69 U/L (34-104) 04/03/18 08:30 Total Protein 7.5 gm/dL (6.0-8.3) 04/03/18 08:30 Albumin 4.2 gm/dL (4.2-5.5) 04/03/18 08:30 Globulin 3.3 gm/dL 04/03/18 08:30 Albumin/Globulin Ratio 1.3 (1.0-1.8) 04/03/18 08:30 Triglycerides 67 mg/dL (<150) 03/20/18 17:15 Cholesterol 138 mg/dL (<200) 03/20/18 17:15 LDL Cholesterol Direct 74 mg/dL (75-193) L 03/20/18 17:15 HDL Cholesterol 52 mg/dL (23-92) 03/20/18 17:15 Urine Source CLEAN C 03/20/18 16:40 Urine Color YELLOW 03/20/18 16:40 Urine Clarity CLEAR (CLEAR) 03/20/18 16:40 Urine pH 6.5 (4.6 - 8.0) 03/20/18 16:40 Ur Specific [place] <= 1.005 (1.005-1.030) 03/20/18 16:40 Urine Protein NEGATIVE mg/dL (NEGATIVE) 03/20/18 16:40 Urine Glucose (UA) NEGATIVE mg/dL (NEGATIVE) 03/20/18 16:40 Urine Ketones NEGATIVE mg/dL (NEGATIVE) 03/20/18 16:40 Urine Blood NEGATIVE (NEGATIVE) 03/20/18 16:40 Urine Nitrate NEGATIVE (NEGATIVE) 03/20/18 16:40 Urine Bilirubin NEGATIVE (NEGATIVE) 03/20/18 16:40 Urine Urobilinogen 0.2 E.U./dL (0.2 - 1.0) 03/20/18 16:40 Ur Leukocyte Esterase NEGATIVE (NEGATIVE) 03/20/18 16:40 Urine RBC 0-2 /hpf (0-5) H 03/20/18 16:40 Urine WBC 0-2 /hpf (0-5) 03/20/18 16:40 Ur Epithelial Cells FEW /lpf (FEW) 03/20/18 16:40 Urine Bacteria OCCASIONAL /hpf (NONE SEEN) 03/20/18 16:40 - Physical Exam Vitals and I&O: Vital Signs Temp 98 F 04/05/18 06:23 Pulse 62 04/05/18 06:23 Resp 19 04/05/18 07:53 BP 101/60 04/05/18 06:23 Pulse Ox 96 04/05/18 06:23 Intake & Output 04/04/18 04/05/18 04/05/18 18:59 06:59 18:59 Intake Total 900 120 Balance 900 120 Intake: Oral 900 120 Other: # Voids 4 3 # Bowel Movements 1 Stool Characteristics Soft Soft Active Medications: Current Medications Acetaminophen (Tylenol) 650 mg PO Q4HR PRN PRN Reason: Mild Pain / Temp above 100 Stop: 05/19/18 21:18 Last Admin: 03/28/18 15:21 Dose: 650 mg Al Hydrox/Mg Hydrox/Simethicone (Maalox) 30 ml PO Q4HR PRN PRN Reason: GI DISTRESS Stop: 05/19/18 21:18 Docusate Sodium (Colace) 100 mg PO BID KB Stop: 05/20/18 08:59 Last Admin: 04/04/18 17:08 Dose: 100 mg Magnesium Hydroxide (Milk Of Magnesia) 30 ml PO HS PRN PRN Reason: IF ORDERED STOOL SOFTENERS INE Stop: 05/19/18 21:41 Risperidone (Risperdal) 3 mg PO BID KB; Protocol Stop: 05/20/18 08:59 Last Admin: 04/04/18 17:09 Dose: 3 mg Assessment/Plan - Problem List Patient Problems: All Active Problems AGITATION AND AGGRESSION (Acute) Nutritional Asmnt/Malnutr-PDOC - Dietary Evaluation Malnutrition Findings (Please click <Entered> for more info): Nutritional Asmnt/Malnutrition Start: 03/25/18 14: 21 Text: Status: Complete Freq: Protocol: Document 03/25/18 14:21 [email or web address] (Rec: 03/25/18 14:27 [email or web address]) Nutritional Asmnt/Malnutrition Patient General Information Nutritional Screening Moderate Risk Diagnosis psychosis NOS Pertinent Medical Hx/Surgical Hx arthritis, DVT, psychosis Subjective Information Pt seen lying in bed, awake. Pt stated good food, no food preference provided. Per EMR, PO intake 100%, Current Diet Order/ Nutrition Support regular Pertinent Medications colace, risperdal Pertinent Labs 03/20 Na 128 Nutritional Hx/Data Height 1.83 m Height (Calculated Centimeters) 182.9 Current Weight (lbs) 88.904 kg Weight (Calculated Kilograms) 88.9 Weight (Calculated Grams) 19397.1 [place] Body Weight 178 Body Mass Index (BMI) 26.6 Weight Status Approriate GI Symptoms GI Symptoms None Last BM 03/24 Difficult in: None Skin Integrity/Comment: intact Current %PO Good (75-100%) Estimated Nutritional Goals BEE in Kcals: Using Current wt Calories/Kcals/Kg 23-27 Kcals Calculated 6892-3118 Protein: Using Current wt Protein g/k.8-1 Protein Calculated 71-89 Fluid: ml 2047-2403ml (1ml/kcal) Nutritional Problem No current Nutrition Prob Problem N/A Intervention/Recommendation Comments 1. Continue with regular diet as ordered. 2. Monitor PO intake, wt, labs and skin integrity 3. F/U as low risk in 7 days, 10/3 Expected Outcomes/Goals Expected Outcomes/Goals 1. PO intake to meet at least 75% of nutritional needs. 2. Wt stability, skin to remain intact, labs to approach WNL.
[2018-04-05] MEDS: Multivitamin w/ Minerals Tab PO SCH (09:28)
--- NOTE | 2018-04-05 17:17 | Progress Notes ---
DATE: 04/05/2018 PSYCHIATRIC PROGRESS NOTE SUBJECTIVE: Chart reviewed and the patient interviewed. Also discussed the patient's condition with the staff and reviewed records and labs. The patient is still in a depressed mood. The patient also is still guarded and seems to be suspicious and slightly paranoid. The patient also is withdrawn and wants to be left alone at times. He also is having episodes of agitation. Yesterday, the patient refused to take his medications after he was taking it. Discussed with the patient the importance of taking his medications and continue to work on compliance with taking his medications as well as will continue to work on his inappropriate behavior and irritability. JOB# [id number]
[2018-04-06] MEDS: Multivitamin w/ Minerals Tab PO SCH (09:03)
--- NOTE | 2018-04-06 11:34 | General Progress Note ---
Subjective - Review of Systems Events since last encounter: patient is depressed withdrawn Objective - Results Result Diagrams: 03/20/18 17:15 04/03/18 08:30 Recent Labs: Laboratory Last Values WBC 7.8 Th/cmm (4.8-10.8) 03/20/18 17:15 RBC 4.56 Mil/cmm (4.30-5.70) 03/20/18 17:15 Hgb 13.9 gm/dL (12-16) 03/20/18 17:15 Hct 41.0 % (41.0-60) 03/20/18 17:15 MCV 89.8 fl (80-99) 03/20/18 17:15 MCH 30.4 pg (26.0-30.0) H 03/20/18 17:15 MCHC Differential 33.9 pg (28.0-36.0) 03/20/18 17:15 RDW 14.0 % (11.5-20.0) 03/20/18 17:15 Plt Count 201 Th/cmm (150-400) 03/20/18 17:15 MPV 7.3 fl 03/20/18 17:15 Neutrophils % 69.1 % (40.0-80.0) 03/20/18 17:15 Lymphocytes % 20.5 % (20.0-50.0) 03/20/18 17:15 Monocytes % 9.3 % (2.0-10.0) 03/20/18 17:15 Eosinophils % 0.7 % (0.0-5.0) 03/20/18 17:15 Basophils % 0.4 % (0.0-2.0) 03/20/18 17:15 Sodium 135 mEq/L (136-145) L 04/03/18 08:30 Potassium 4.2 mEq/L (3.5-5.1) 04/03/18 08:30 Chloride 100 mEq/L (98-107) 04/03/18 08:30 Carbon Dioxide 29.4 mEq/L (21.0-31.0) 04/03/18 08:30 Anion Gap 9.8 (7.0-16.0) 04/03/18 08:30 BUN 20 mg/dL (7-25) 04/03/18 08:30 Creatinine 1.1 mg/dL (0.7-1.3) 04/03/18 08:30 Est GFR ( Amer) > 60.0 ml/min (>90) 04/03/18 08:30 Est GFR (Non-Af Amer) > 60.0 ml/min 04/03/18 08:30 BUN/Creatinine Ratio 18.2 04/03/18 08:30 Glucose 145 mg/dL (70-105) H 04/03/18 08:30 Calcium 10.0 mg/dL (8.6-10.3) 04/03/18 08:30 Total Bilirubin 0.6 mg/dL (0.3-1.0) 04/03/18 08:30 AST 11 U/L (13-39) L 04/03/18 08:30 ALT 11 U/L (7-52) 04/03/18 08:30 Alkaline Phosphatase 69 U/L (34-104) 04/03/18 08:30 Total Protein 7.5 gm/dL (6.0-8.3) 04/03/18 08:30 Albumin 4.2 gm/dL (4.2-5.5) 04/03/18 08:30 Globulin 3.3 gm/dL 04/03/18 08:30 Albumin/Globulin Ratio 1.3 (1.0-1.8) 04/03/18 08:30 Triglycerides 67 mg/dL (<150) 03/20/18 17:15 Cholesterol 138 mg/dL (<200) 03/20/18 17:15 LDL Cholesterol Direct 74 mg/dL (75-193) L 03/20/18 17:15 HDL Cholesterol 52 mg/dL (23-92) 03/20/18 17:15 Urine Source CLEAN C 03/20/18 16:40 Urine Color YELLOW 03/20/18 16:40 Urine Clarity CLEAR (CLEAR) 03/20/18 16:40 Urine pH 6.5 (4.6 - 8.0) 03/20/18 16:40 Ur Specific [place] <= 1.005 (1.005-1.030) 03/20/18 16:40 Urine Protein NEGATIVE mg/dL (NEGATIVE) 03/20/18 16:40 Urine Glucose (UA) NEGATIVE mg/dL (NEGATIVE) 03/20/18 16:40 Urine Ketones NEGATIVE mg/dL (NEGATIVE) 03/20/18 16:40 Urine Blood NEGATIVE (NEGATIVE) 03/20/18 16:40 Urine Nitrate NEGATIVE (NEGATIVE) 03/20/18 16:40 Urine Bilirubin NEGATIVE (NEGATIVE) 03/20/18 16:40 Urine Urobilinogen 0.2 E.U./dL (0.2 - 1.0) 03/20/18 16:40 Ur Leukocyte Esterase NEGATIVE (NEGATIVE) 03/20/18 16:40 Urine RBC 0-2 /hpf (0-5) H 03/20/18 16:40 Urine WBC 0-2 /hpf (0-5) 03/20/18 16:40 Ur Epithelial Cells FEW /lpf (FEW) 03/20/18 16:40 Urine Bacteria OCCASIONAL /hpf (NONE SEEN) 03/20/18 16:40 - Physical Exam Vitals and I&O: Vital Signs Temp 97.8 F 04/06/18 07:02 Pulse 63 04/06/18 07:02 Resp 16 04/06/18 07:02 BP 94/62 04/06/18 07:02 Pulse Ox 99 04/06/18 07:02 Intake & Output 04/05/18 04/06/18 04/06/18 18:59 06:59 18:59 Intake Total 1400 120 Balance 1400 120 Intake: Oral 1400 120 Other: # Voids 4 3 # Bowel Movements 1 Stool Characteristics Soft Active Medications: Current Medications Acetaminophen (Tylenol) 650 mg PO Q4HR PRN PRN Reason: Mild Pain / Temp above 100 Stop: 05/19/18 21:18 Last Admin: 04/06/18 06:20 Dose: 650 mg Al Hydrox/Mg Hydrox/Simethicone (Maalox) 30 ml PO Q4HR PRN PRN Reason: GI DISTRESS Stop: 05/19/18 21:18 Docusate Sodium (Colace) 100 mg PO BID KB Stop: 05/20/18 08:59 Last Admin: 04/06/18 09:04 Dose: 100 mg Magnesium Hydroxide (Milk Of Magnesia) 30 ml PO HS PRN PRN Reason: IF ORDERED STOOL SOFTENERS INE Stop: 05/19/18 21:41 Risperidone (Risperdal) 3 mg PO BID KB; Protocol Stop: 05/20/18 08:59 Last Admin: 04/06/18 09:03 Dose: 3 mg Assessment/Plan - Problem List Patient Problems: All Active Problems AGITATION AND AGGRESSION (Acute) Nutritional Asmnt/Malnutr-PDOC - Dietary Evaluation Malnutrition Findings (Please click <Entered> for more info): Nutritional Asmnt/Malnutrition Start: 03/25/18 14: 21 Text: Status: Complete Freq: Protocol: Document 03/25/18 14:21 LCHENG (Rec: 03/25/18 14:27 [email or web address]) Nutritional Asmnt/Malnutrition Patient General Information Nutritional Screening Moderate Risk Diagnosis psychosis NOS Pertinent Medical Hx/Surgical Hx arthritis, DVT, psychosis Subjective Information Pt seen lying in bed, awake. Pt stated good food, no food preference provided. Per EMR, PO intake 100%, Current Diet Order/ Nutrition Support regular Pertinent Medications colace, risperdal Pertinent Labs 03/20 Na 128 Nutritional Hx/Data Height 1.83 m Height (Calculated Centimeters) 182.9 Current Weight (lbs) 88.904 kg Weight (Calculated Kilograms) 88.9 Weight (Calculated Grams) 84070.1 [place] Body Weight 178 Body Mass Index (BMI) 26.6 Weight Status Approriate GI Symptoms GI Symptoms None Last BM 03/24 Difficult in: None Skin Integrity/Comment: intact Current %PO Good (75-100%) Estimated Nutritional Goals BEE in Kcals: Using Current wt Calories/Kcals/Kg 23-27 Kcals Calculated 8088-3881 Protein: Using Current wt Protein g/k.8-1 Protein Calculated 71-89 Fluid: ml 2047-2403ml (1ml/kcal) Nutritional Problem No current Nutrition Prob Problem N/A Intervention/Recommendation Comments 1. Continue with regular diet as ordered. 2. Monitor PO intake, wt, labs and skin integrity 3. F/U as low risk in 7 days, 10/3 Expected Outcomes/Goals Expected Outcomes/Goals 1. PO intake to meet at least 75% of nutritional needs. 2. Wt stability, skin to remain intact, labs to approach WNL.
--- NOTE | 2018-04-06 20:00 | Progress Notes ---
DATE: 04/06/2018 SUBJECTIVE: Case was discussed with staff of the patient, reviewed records. The patient continues to be depressed, continues to be guarded, suspicious, paranoid, withdrawn, and likes to be left alone. However, today he was out of his room, which is some progress. He continues to have some agitation. Apparently, he was refusing to take his medication. The patient talked to me, agreed to take his medication, he is currently having no side effects, no sedation, no nausea, no extrapyramidal symptoms, hard to adjust the medications as the patient has not taken it. Dr. Guo increased his medication on 03/23/2018 to 3 mg twice a day with no side effects, no sedation, no nausea and no extrapyramidal symptoms. We will continue to work with the patient in group therapy, milieu therapy, and adjust the medications as needed. JOB# [id number]
[2018-04-07] MEDS: Multivitamin w/ Minerals Tab PO SCH (08:57)
--- NOTE | 2018-04-07 12:11 | Internal Medicine Prog Note ---
Internal Medicine Subjective - Subjective Service Date: 04/07/18 Patient is:: awake, verbal Per staff patient has:: tolerating meds Internal Medicine Objective - Results Result Diagrams: 03/20/18 17:15 04/03/18 08:30 Recent Labs: Laboratory Last Values WBC 7.8 Th/cmm (4.8-10.8) 03/20/18 17:15 RBC 4.56 Mil/cmm (4.30-5.70) 03/20/18 17:15 Hgb 13.9 gm/dL (12-16) 03/20/18 17:15 Hct 41.0 % (41.0-60) 03/20/18 17:15 MCV 89.8 fl (80-99) 03/20/18 17:15 MCH 30.4 pg (26.0-30.0) H 03/20/18 17:15 MCHC Differential 33.9 pg (28.0-36.0) 03/20/18 17:15 RDW 14.0 % (11.5-20.0) 03/20/18 17:15 Plt Count 201 Th/cmm (150-400) 03/20/18 17:15 MPV 7.3 fl 03/20/18 17:15 Neutrophils % 69.1 % (40.0-80.0) 03/20/18 17:15 Lymphocytes % 20.5 % (20.0-50.0) 03/20/18 17:15 Monocytes % 9.3 % (2.0-10.0) 03/20/18 17:15 Eosinophils % 0.7 % (0.0-5.0) 03/20/18 17:15 Basophils % 0.4 % (0.0-2.0) 03/20/18 17:15 Sodium 135 mEq/L (136-145) L 04/03/18 08:30 Potassium 4.2 mEq/L (3.5-5.1) 04/03/18 08:30 Chloride 100 mEq/L (98-107) 04/03/18 08:30 Carbon Dioxide 29.4 mEq/L (21.0-31.0) 04/03/18 08:30 Anion Gap 9.8 (7.0-16.0) 04/03/18 08:30 BUN 20 mg/dL (7-25) 04/03/18 08:30 Creatinine 1.1 mg/dL (0.7-1.3) 04/03/18 08:30 Est GFR ( Amer) > 60.0 ml/min (>90) 04/03/18 08:30 Est GFR (Non-Af Amer) > 60.0 ml/min 04/03/18 08:30 BUN/Creatinine Ratio 18.2 04/03/18 08:30 Glucose 145 mg/dL (70-105) H 04/03/18 08:30 Calcium 10.0 mg/dL (8.6-10.3) 04/03/18 08:30 Total Bilirubin 0.6 mg/dL (0.3-1.0) 04/03/18 08:30 AST 11 U/L (13-39) L 04/03/18 08:30 ALT 11 U/L (7-52) 04/03/18 08:30 Alkaline Phosphatase 69 U/L (34-104) 04/03/18 08:30 Total Protein 7.5 gm/dL (6.0-8.3) 04/03/18 08:30 Albumin 4.2 gm/dL (4.2-5.5) 04/03/18 08:30 Globulin 3.3 gm/dL 04/03/18 08:30 Albumin/Globulin Ratio 1.3 (1.0-1.8) 04/03/18 08:30 Triglycerides 67 mg/dL (<150) 03/20/18 17:15 Cholesterol 138 mg/dL (<200) 03/20/18 17:15 LDL Cholesterol Direct 74 mg/dL (75-193) L 03/20/18 17:15 HDL Cholesterol 52 mg/dL (23-92) 03/20/18 17:15 Urine Source CLEAN C 03/20/18 16:40 Urine Color YELLOW 03/20/18 16:40 Urine Clarity CLEAR (CLEAR) 03/20/18 16:40 Urine pH 6.5 (4.6 - 8.0) 03/20/18 16:40 Ur Specific [place] <= 1.005 (1.005-1.030) 03/20/18 16:40 Urine Protein NEGATIVE mg/dL (NEGATIVE) 03/20/18 16:40 Urine Glucose (UA) NEGATIVE mg/dL (NEGATIVE) 03/20/18 16:40 Urine Ketones NEGATIVE mg/dL (NEGATIVE) 03/20/18 16:40 Urine Blood NEGATIVE (NEGATIVE) 03/20/18 16:40 Urine Nitrate NEGATIVE (NEGATIVE) 03/20/18 16:40 Urine Bilirubin NEGATIVE (NEGATIVE) 03/20/18 16:40 Urine Urobilinogen 0.2 E.U./dL (0.2 - 1.0) 03/20/18 16:40 Ur Leukocyte Esterase NEGATIVE (NEGATIVE) 03/20/18 16:40 Urine RBC 0-2 /hpf (0-5) H 03/20/18 16:40 Urine WBC 0-2 /hpf (0-5) 03/20/18 16:40 Ur Epithelial Cells FEW /lpf (FEW) 03/20/18 16:40 Urine Bacteria OCCASIONAL /hpf (NONE SEEN) 03/20/18 16:40 - Physical Exam Vitals and I&O: Vital Signs Temp 96.8 F 04/07/18 06:56 Pulse 60 04/07/18 06:56 Resp 17 04/07/18 06:56 BP 99/52 04/07/18 06:56 Pulse Ox 96 04/07/18 06:56 Intake & Output 04/06/18 04/07/18 04/07/18 18:59 06:59 18:59 Intake Total 1320 Balance 1320 Intake: Oral 1320 Other: # Voids 4 # Bowel Movements 1 Active Medications: Current Medications Acetaminophen (Tylenol) 650 mg PO Q4HR PRN PRN Reason: Mild Pain / Temp above 100 Stop: 05/19/18 21:18 Last Admin: 04/06/18 18:06 Dose: 650 mg Al Hydrox/Mg Hydrox/Simethicone (Maalox) 30 ml PO Q4HR PRN PRN Reason: GI DISTRESS Stop: 05/19/18 21:18 Docusate Sodium (Colace) 100 mg PO BID KB Stop: 05/20/18 08:59 Last Admin: 04/07/18 08:57 Dose: 100 mg Magnesium Hydroxide (Milk Of Magnesia) 30 ml PO HS PRN PRN Reason: IF ORDERED STOOL SOFTENERS INE Stop: 05/19/18 21:41 Risperidone (Risperdal) 3 mg PO BID KB; Protocol Stop: 05/20/18 08:59 Last Admin: 04/07/18 08:57 Dose: 3 mg General: alert HEENT: NC/AT, PERRLA Neck: Supple Lungs: CTAB Cardiovascular: RRR, Normal S1, Normal S2 Abdomen: soft, non-tender, non-distended Extremities: excoriation Internal Medicine Assmt/Plan - Assessment Assessment: Agitation, arthritis, psychosis, chronic pains, and history of deep venous thrombosis. . - Plan Plan: contiue daily inr continue current plan of care Nutritional Asmnt/Malnutr-PDOC - Dietary Evaluation Malnutrition Findings (Please click <Entered> for more info): Nutritional Asmnt/Malnutrition Start: 03/25/18 14: 21 Text: Status: Complete Freq: Protocol: Document 03/25/18 14:21 LCHENG (Rec: 03/25/18 14:27 [email or web address]) Nutritional Asmnt/Malnutrition Patient General Information Nutritional Screening Moderate Risk Diagnosis psychosis NOS Pertinent Medical Hx/Surgical Hx arthritis, DVT, psychosis Subjective Information Pt seen lying in bed, awake. Pt stated good food, no food preference provided. Per EMR, PO intake 100%, Current Diet Order/ Nutrition Support regular Pertinent Medications colace, risperdal Pertinent Labs 03/20 Na 128 Nutritional Hx/Data Height 6 ft Height (Calculated Centimeters) 182.9 Current Weight (lbs) 196 lb Weight (Calculated Kilograms) 88.9 Weight (Calculated Grams) 24510.1 [place] Body Weight 178 Body Mass Index (BMI) 26.6 Weight Status Approriate GI Symptoms GI Symptoms None Last BM 03/24 Difficult in: None Skin Integrity/Comment: intact Current %PO Good (75-100%) Estimated Nutritional Goals BEE in Kcals: Using Current wt Calories/Kcals/Kg 23-27 Kcals Calculated 5740-9503 Protein: Using Current wt Protein g/k.8-1 Protein Calculated 71-89 Fluid: ml 2047-2403ml (1ml/kcal) Nutritional Problem No current Nutrition Prob Problem N/A Intervention/Recommendation Comments 1. Continue with regular diet as ordered. 2. Monitor PO intake, wt, labs and skin integrity 3. F/U as low risk in 7 days, 10 Expected Outcomes/Goals Expected Outcomes/Goals 1. PO intake to meet at least 75% of nutritional needs. 2. Wt stability, skin to remain intact, labs to approach WNL.
--- NOTE | 2018-04-07 21:33 | Progress Notes ---
DATE: 04/07/2018 SUBJECTIVE: Case was discussed with staff of the patient, reviewed records. The patient is starting to show some progress. He is out of his room. He is able to talk and socialize; though, he does not say much. He continues to be internally preoccupied with poor ADLs. He has a low sodium level upon admission and it increased from 128 to 135 on 04/03/2018. He has low MCH of 30.4. The rest within normal range of the CBC. He has high blood sugar, low AST, and low LDL cholesterol. The rest of the lipid panel and SMA 12 within normal range. Urinalysis with red cells. He continues to be unpredictable, impulsive, and needing redirection. No side effects with the medication, no sedation, no nausea, and no extrapyramidal symptoms. I will be asking the staff to do another urinalysis on him. We will continue to work with the patient in group therapy, milieu therapy, and adjust the medication as needed. JOB# [id number]
[2018-04-08] MEDS: Multivitamin w/ Minerals Tab PO SCH (08:21)
[2018-04-08 10:07] LABS: URINE SOURCE CLEAN C
--- NOTE | 2018-04-08 10:07 | Progress Notes ---
DATE: 04/08/2018 SUBJECTIVE: Case was discussed with staff of the patient, reviewed records. The patient so much progress. He is able to speak more coherently and was able to tell me the date; however, I did urinalysis for him because he had red cells in the urine and he seems to be showing progress. He is compliant with the medication with no side effects, no sedation, no nausea, and no extrapyramidal symptoms. Discussed with Shakir today the in-charge nurse as well as ____ yesterday, they will need to make Dr. Devlin aware that this patient has red cells in the urine to make sure he is worked up appropriately. The patient reports no side effects with the medication, no sedation, no nausea, and no extrapyramidal symptoms. We will continue outpatient group therapy, milieu therapy. Adjust medications. JOB# [id number]
[2018-04-08 10:10] LABS: URINE BILIRUBIN NEGATIVE (NEGATIVE); URINE BLOOD NEGATIVE (NEGATIVE); URINE GLUCOSE (UA) NEGATIVE (NEGATIVE); URINE KETONE NEGATIVE (NEGATIVE); URINE LEUKOCYTE ESTERASE NEGATIVE (NEGATIVE); URINE NITRATE NEGATIVE (NEGATIVE); URINE PROTEIN NEGATIVE (NEGATIVE); URINE UROBILINOGEN 0.2 E.U./dL (0.2 - 1.0)
[2018-04-08 10:27] LABS: URINE COLOR YELLOW
[2018-04-08 10:28] LABS: URINE CLARITY CLEAR (CLEAR); URINE MICROSCOPIC INDICATED? YES
[2018-04-08 10:29] LABS: URINE BACTERIA OCCASIONAL /hpf (NONE SEEN); URINE EPITHELIAL CELLS NONE SEEN /lpf (FEW); URINE RBC NONE SEEN /hpf (0-5); URINE WBC 0-2 /hpf (0-5)
--- NOTE | 2018-04-08 16:46 | Internal Medicine Prog Note ---
Internal Medicine Subjective - Subjective Patient is:: awake, verbal Per staff patient has:: tolerating meds Internal Medicine Objective - Results Result Diagrams: 03/20/18 17:15 04/03/18 08:30 Recent Labs: Laboratory Last Values WBC 7.8 Th/cmm (4.8-10.8) 03/20/18 17:15 RBC 4.56 Mil/cmm (4.30-5.70) 03/20/18 17:15 Hgb 13.9 gm/dL (12-16) 03/20/18 17:15 Hct 41.0 % (41.0-60) 03/20/18 17:15 MCV 89.8 fl (80-99) 03/20/18 17:15 MCH 30.4 pg (26.0-30.0) H 03/20/18 17:15 MCHC Differential 33.9 pg (28.0-36.0) 03/20/18 17:15 RDW 14.0 % (11.5-20.0) 03/20/18 17:15 Plt Count 201 Th/cmm (150-400) 03/20/18 17:15 MPV 7.3 fl 03/20/18 17:15 Neutrophils % 69.1 % (40.0-80.0) 03/20/18 17:15 Lymphocytes % 20.5 % (20.0-50.0) 03/20/18 17:15 Monocytes % 9.3 % (2.0-10.0) 03/20/18 17:15 Eosinophils % 0.7 % (0.0-5.0) 03/20/18 17:15 Basophils % 0.4 % (0.0-2.0) 03/20/18 17:15 Sodium 135 mEq/L (136-145) L 04/03/18 08:30 Potassium 4.2 mEq/L (3.5-5.1) 04/03/18 08:30 Chloride 100 mEq/L (98-107) 04/03/18 08:30 Carbon Dioxide 29.4 mEq/L (21.0-31.0) 04/03/18 08:30 Anion Gap 9.8 (7.0-16.0) 04/03/18 08:30 BUN 20 mg/dL (7-25) 04/03/18 08:30 Creatinine 1.1 mg/dL (0.7-1.3) 04/03/18 08:30 Est GFR ( Amer) > 60.0 ml/min (>90) 04/03/18 08:30 Est GFR (Non-Af Amer) > 60.0 ml/min 04/03/18 08:30 BUN/Creatinine Ratio 18.2 04/03/18 08:30 Glucose 145 mg/dL (70-105) H 04/03/18 08:30 Calcium 10.0 mg/dL (8.6-10.3) 04/03/18 08:30 Total Bilirubin 0.6 mg/dL (0.3-1.0) 04/03/18 08:30 AST 11 U/L (13-39) L 04/03/18 08:30 ALT 11 U/L (7-52) 04/03/18 08:30 Alkaline Phosphatase 69 U/L (34-104) 04/03/18 08:30 Total Protein 7.5 gm/dL (6.0-8.3) 04/03/18 08:30 Albumin 4.2 gm/dL (4.2-5.5) 04/03/18 08:30 Globulin 3.3 gm/dL 04/03/18 08:30 Albumin/Globulin Ratio 1.3 (1.0-1.8) 04/03/18 08:30 Triglycerides 67 mg/dL (<150) 03/20/18 17:15 Cholesterol 138 mg/dL (<200) 03/20/18 17:15 LDL Cholesterol Direct 74 mg/dL (75-193) L 03/20/18 17:15 HDL Cholesterol 52 mg/dL (23-92) 03/20/18 17:15 Urine Source CLEAN C 04/08/18 09:25 Urine Color YELLOW 04/08/18 09:25 Urine Clarity CLEAR (CLEAR) 04/08/18 09:25 Urine pH 7.0 (4.6 - 8.0) 04/08/18 09:25 Ur Specific [place] 1.015 (1.005-1.030) 04/08/18 09:25 Urine Protein NEGATIVE mg/dL (NEGATIVE) 04/08/18 09:25 Urine Glucose (UA) NEGATIVE mg/dL (NEGATIVE) 04/08/18 09:25 Urine Ketones NEGATIVE mg/dL (NEGATIVE) 04/08/18 09:25 Urine Blood NEGATIVE (NEGATIVE) 04/08/18 09:25 Urine Nitrate NEGATIVE (NEGATIVE) 04/08/18 09:25 Urine Bilirubin NEGATIVE (NEGATIVE) 04/08/18 09:25 Urine Urobilinogen 0.2 E.U./dL (0.2 - 1.0) 04/08/18 09:25 Ur Leukocyte Esterase NEGATIVE (NEGATIVE) 04/08/18 09:25 Urine RBC NONE SEEN /hpf (0-5) 04/08/18 09:25 Urine WBC 0-2 /hpf (0-5) 04/08/18 09:25 Ur Epithelial Cells NONE SEEN /lpf (FEW) 04/08/18 09:25 Urine Bacteria OCCASIONAL /hpf (NONE SEEN) 04/08/18 09:25 - Physical Exam Vitals and I&O: Vital Signs Temp 97.4 F 04/08/18 14:00 Pulse 58 04/08/18 14:00 Resp 18 04/08/18 14:00 BP 124/71 04/08/18 00:24 Pulse Ox 96 04/08/18 14:00 Intake & Output 04/07/18 04/08/18 04/08/18 18:59 06:59 18:59 Intake Total 240 Balance 240 Intake: Oral 240 Other: # Voids 2 # Bowel Movements 1 Active Medications: Current Medications Acetaminophen (Tylenol) 650 mg PO Q4HR PRN PRN Reason: Mild Pain / Temp above 100 Stop: 05/19/18 21:18 Last Admin: 04/08/18 08:32 Dose: 650 mg Al Hydrox/Mg Hydrox/Simethicone (Maalox) 30 ml PO Q4HR PRN PRN Reason: GI DISTRESS Stop: 05/19/18 21:18 Docusate Sodium (Colace) 100 mg PO BID KB Stop: 05/20/18 08:59 Last Admin: 04/08/18 08:21 Dose: 100 mg Magnesium Hydroxide (Milk Of Magnesia) 30 ml PO HS PRN PRN Reason: IF ORDERED STOOL SOFTENERS INE Stop: 05/19/18 21:41 Risperidone (Risperdal) 3 mg PO BID KB; Protocol Stop: 05/20/18 08:59 Last Admin: 04/08/18 08:21 Dose: 3 mg General: alert HEENT: NC/AT, PERRLA Neck: Supple Lungs: CTAB Cardiovascular: RRR, Normal S1, Normal S2 Abdomen: soft, non-tender, non-distended Extremities: excoriation Nutritional Asmnt/Malnutr-PDOC - Dietary Evaluation Malnutrition Findings (Please click <Entered> for more info): Nutritional Asmnt/Malnutrition Start: 03/25/18 14: 21 Text: Status: Complete Freq: Protocol: Document 03/25/18 14:21 [facility] (Rec[facility] 03/25/18 14[email or web address] Nutritional Asmnt/Malnutrition Patient General Information Nutritional Screening Moderate Risk Diagnosis psychosis NOS Pertinent Medical Hx/Surgical Hx arthritis, DVT, psychosis Subjective Information Pt seen lying in bed, awake. Pt stated good food, no food preference provided. Per EMR, PO intake 100%, Current Diet Order/ Nutrition Support regular Pertinent Medications colace, risperdal Pertinent Labs 03/20 Na 128 Nutritional Hx/Data Height 1.83 m Height (Calculated Centimeters) 182.9 Current Weight (lbs) 88.904 kg Weight (Calculated Kilograms) 88.9 Weight (Calculated Grams) 07707.1 [place] Body Weight 178 Body Mass Index (BMI) 26.6 Weight Status Approriate GI Symptoms GI Symptoms None Last BM 03/24 Difficult in: None Skin Integrity/Comment: intact Current %PO Good (75-100%) Estimated Nutritional Goals BEE in Kcals: Using Current wt Calories/Kcals/Kg 23-27 Kcals Calculated 1178-9534 Protein: Using Current wt Protein g/k.8-1 Protein Calculated 71-89 Fluid: ml 2047-2403ml (1ml/kcal) Nutritional Problem No current Nutrition Prob Problem N/A Intervention/Recommendation Comments 1. Continue with regular diet as ordered. 2. Monitor PO intake, wt, labs and skin integrity 3. F/U as low risk in 7 days, 10/3 Expected Outcomes/Goals Expected Outcomes/Goals 1. PO intake to meet at least 75% of nutritional needs. 2. Wt stability, skin to remain intact, labs to approach WNL.
[2018-04-09] MEDS: Multivitamin w/ Minerals Tab PO SCH (08:09)
--- NOTE | 2018-04-09 13:53 | Internal Medicine Prog Note ---
Internal Medicine Subjective - Subjective Patient is:: awake, verbal, other (in no distress) Per staff patient has:: no adverse event, tolerating meds Internal Medicine Objective - Results Result Diagrams: 03/20/18 17:15 04/03/18 08:30 Recent Labs: Laboratory Last Values WBC 7.8 Th/cmm (4.8-10.8) 03/20/18 17:15 RBC 4.56 Mil/cmm (4.30-5.70) 03/20/18 17:15 Hgb 13.9 gm/dL (12-16) 03/20/18 17:15 Hct 41.0 % (41.0-60) 03/20/18 17:15 MCV 89.8 fl (80-99) 03/20/18 17:15 MCH 30.4 pg (26.0-30.0) H 03/20/18 17:15 MCHC Differential 33.9 pg (28.0-36.0) 03/20/18 17:15 RDW 14.0 % (11.5-20.0) 03/20/18 17:15 Plt Count 201 Th/cmm (150-400) 03/20/18 17:15 MPV 7.3 fl 03/20/18 17:15 Neutrophils % 69.1 % (40.0-80.0) 03/20/18 17:15 Lymphocytes % 20.5 % (20.0-50.0) 03/20/18 17:15 Monocytes % 9.3 % (2.0-10.0) 03/20/18 17:15 Eosinophils % 0.7 % (0.0-5.0) 03/20/18 17:15 Basophils % 0.4 % (0.0-2.0) 03/20/18 17:15 Sodium 135 mEq/L (136-145) L 04/03/18 08:30 Potassium 4.2 mEq/L (3.5-5.1) 04/03/18 08:30 Chloride 100 mEq/L (98-107) 04/03/18 08:30 Carbon Dioxide 29.4 mEq/L (21.0-31.0) 04/03/18 08:30 Anion Gap 9.8 (7.0-16.0) 04/03/18 08:30 BUN 20 mg/dL (7-25) 04/03/18 08:30 Creatinine 1.1 mg/dL (0.7-1.3) 04/03/18 08:30 Est GFR ( Amer) > 60.0 ml/min (>90) 04/03/18 08:30 Est GFR (Non-Af Amer) > 60.0 ml/min 04/03/18 08:30 BUN/Creatinine Ratio 18.2 04/03/18 08:30 Glucose 145 mg/dL (70-105) H 04/03/18 08:30 Calcium 10.0 mg/dL (8.6-10.3) 04/03/18 08:30 Total Bilirubin 0.6 mg/dL (0.3-1.0) 04/03/18 08:30 AST 11 U/L (13-39) L 04/03/18 08:30 ALT 11 U/L (7-52) 04/03/18 08:30 Alkaline Phosphatase 69 U/L (34-104) 04/03/18 08:30 Total Protein 7.5 gm/dL (6.0-8.3) 04/03/18 08:30 Albumin 4.2 gm/dL (4.2-5.5) 04/03/18 08:30 Globulin 3.3 gm/dL 04/03/18 08:30 Albumin/Globulin Ratio 1.3 (1.0-1.8) 04/03/18 08:30 Triglycerides 67 mg/dL (<150) 03/20/18 17:15 Cholesterol 138 mg/dL (<200) 03/20/18 17:15 LDL Cholesterol Direct 74 mg/dL (75-193) L 03/20/18 17:15 HDL Cholesterol 52 mg/dL (23-92) 03/20/18 17:15 Urine Source CLEAN C 04/08/18 09:25 Urine Color YELLOW 04/08/18 09:25 Urine Clarity CLEAR (CLEAR) 04/08/18 09:25 Urine pH 7.0 (4.6 - 8.0) 04/08/18 09:25 Ur Specific [place] 1.015 (1.005-1.030) 04/08/18 09:25 Urine Protein NEGATIVE mg/dL (NEGATIVE) 04/08/18 09:25 Urine Glucose (UA) NEGATIVE mg/dL (NEGATIVE) 04/08/18 09:25 Urine Ketones NEGATIVE mg/dL (NEGATIVE) 04/08/18 09:25 Urine Blood NEGATIVE (NEGATIVE) 04/08/18 09:25 Urine Nitrate NEGATIVE (NEGATIVE) 04/08/18 09:25 Urine Bilirubin NEGATIVE (NEGATIVE) 04/08/18 09:25 Urine Urobilinogen 0.2 E.U./dL (0.2 - 1.0) 04/08/18 09:25 Ur Leukocyte Esterase NEGATIVE (NEGATIVE) 04/08/18 09:25 Urine RBC NONE SEEN /hpf (0-5) 04/08/18 09:25 Urine WBC 0-2 /hpf (0-5) 04/08/18 09:25 Ur Epithelial Cells NONE SEEN /lpf (FEW) 04/08/18 09:25 Urine Bacteria OCCASIONAL /hpf (NONE SEEN) 04/08/18 09:25 - Physical Exam Vitals and I&O: Vital Signs Temp 97.3 F 04/09/18 05:21 Pulse 51 04/09/18 05:21 Resp 19 04/09/18 05:21 BP 92/55 04/09/18 05:21 Pulse Ox 99 04/09/18 05:21 Intake & Output 04/08/18 04/09/18 04/09/18 18:59 06:59 18:59 Intake Total 1200 120 Balance 1200 120 Intake: Oral 1200 120 Other: # Voids 3 # Bowel Movements 1 Active Medications: Current Medications Acetaminophen (Tylenol) 650 mg PO Q4HR PRN PRN Reason: Mild Pain / Temp above 100 Stop: 05/19/18 21:18 Last Admin: 04/09/18 08:08 Dose: 650 mg Al Hydrox/Mg Hydrox/Simethicone (Maalox) 30 ml PO Q4HR PRN PRN Reason: GI DISTRESS Stop: 05/19/18 21:18 Docusate Sodium (Colace) 100 mg PO BID KB Stop: 05/20/18 08:59 Last Admin: 04/09/18 08:09 Dose: 100 mg Magnesium Hydroxide (Milk Of Magnesia) 30 ml PO HS PRN PRN Reason: IF ORDERED STOOL SOFTENERS INE Stop: 05/19/18 21:41 Risperidone (Risperdal) 3 mg PO BID KB; Protocol Stop: 05/20/18 08:59 Last Admin: 04/09/18 08:09 Dose: 3 mg General: alert HEENT: NC/AT, PERRLA Neck: Supple Lungs: CTAB Cardiovascular: RRR, Normal S1, Normal S2 Abdomen: soft, non-tender, non-distended Extremities: excoriation Internal Medicine Assmt/Plan - Assessment Assessment: agitation arthritis psychosis chronic pains h/o dvt - Plan Plan: as per psych will continue to monitor Nutritional Asmnt/Malnutr-PDOC - Dietary Evaluation Malnutrition Findings (Please click <Entered> for more info): Nutritional Asmnt/Malnutrition Start: 03/25/18 14: 21 Text: Status: Complete Freq: Protocol: Document 03/25/18 14:21 [facility] (Rec: 03/25/18 14:27 [email or web address]) Nutritional Asmnt/Malnutrition Patient General Information Nutritional Screening Moderate Risk Diagnosis psychosis NOS Pertinent Medical Hx/Surgical Hx arthritis, DVT, psychosis Subjective Information Pt seen lying in bed, awake. Pt stated good food, no food preference provided. Per EMR, PO intake 100%, Current Diet Order/ Nutrition Support regular Pertinent Medications colace, risperdal Pertinent Labs 03/20 Na 128 Nutritional Hx/Data Height 1.83 m Height (Calculated Centimeters) 182.9 Current Weight (lbs) 88.904 kg Weight (Calculated Kilograms) 88.9 Weight (Calculated Grams) 83918.1 [place] Body Weight 178 Body Mass Index (BMI) 26.6 Weight Status Approriate GI Symptoms GI Symptoms None Last BM 03/24 Difficult in: None Skin Integrity/Comment: intact Current %PO Good (75-100%) Estimated Nutritional Goals BEE in Kcals: Using Current wt Calories/Kcals/Kg 23-27 Kcals Calculated 7094-0654 Protein: Using Current wt Protein g/k.8-1 Protein Calculated 71-89 Fluid: ml 2047-2403ml (1ml/kcal) Nutritional Problem No current Nutrition Prob Problem N/A Intervention/Recommendation Comments 1. Continue with regular diet as ordered. 2. Monitor PO intake, wt, labs and skin integrity 3. F/U as low risk in 7 days, 04/01 Expected Outcomes/Goals Expected Outcomes/Goals 1. PO intake to meet at least 75% of nutritional needs. 2. Wt stability, skin to remain intact, labs to approach WNL.
--- NOTE | 2018-04-09 21:32 | Progress Notes ---
DATE: 04/09/2018 Case was discussed with staff of the patient, reviewed records. The patient apparently had a urinalysis yesterday on 04/08/2018 and did not show any red cells in the urine, so there is no concern now about having to worry about it. He is sleeping better, eating better. Continues to have episodes of agitation. Continues to be unable to express himself very well, though he can sleep well, internally preoccupied. No side effects with the medication, no sedation, no nausea, no extrapyramidal symptoms and he is on Risperdal 3 mg twice a day. We will continue to work with the patient in group therapy, milieu therapy, and adjust the medications as needed. JOB# [id number]
[2018-04-10] MEDS: Multivitamin w/ Minerals Tab PO SCH (08:17)
--- NOTE | 2018-04-10 11:56 | Discharge Summary ---
DATE OF DISCHARGE: 04/10/2018 IDENTIFYING INFORMATION: The patient identifies as a 57-year-old male. CHIEF COMPLAINT: Agitation and aggressive behavior. HISTORY OF PRESENT ILLNESS: The patient ____ after evaluated him at [facility]. He was very agitated, hitting staff, aggressive with staff, psychotic, unable to follow direction, make safe plan for self-care, very irritable mood swings. PAST PSYCHIATRIC HISTORY: The patient has prior admission to this facility because of psychosis. MEDICAL HISTORY: No major medical problems in the past, family has come from [facility]. ALLERGIES: No known drug allergy. COURSE IN THE HOSPITAL: The patient was started on Risperdal, the dose was increased to 3 mg twice a day. The patient also was on multivitamin. The patient progressively got better. He was sleeping well, eating well. He was no longer acting out. So as he improved, we felt he could be discharged to a lesser level of care. FINAL DIAGNOSIS: Schizoaffective disorder. MEDICAL DIAGNOSIS: None. The patient will be discharged with followup to [facility] with followup with the psychiatrist and primary care physician. EXPECTED OUTCOME: Stable if the patient complies. [facility]# [id number]
--- NOTE | 2018-04-10 13:49 | Internal Medicine Prog Note ---
Internal Medicine Subjective - Subjective Service Date: 04/10/18 Patient is:: awake, verbal, other (in no distress) Per staff patient has:: no adverse event, tolerating meds Internal Medicine Objective - Results Result Diagrams: 03/20/18 17:15 04/03/18 08:30 Recent Labs: Laboratory Last Values WBC 7.8 Th/cmm (4.8-10.8) 03/20/18 17:15 RBC 4.56 Mil/cmm (4.30-5.70) 03/20/18 17:15 Hgb 13.9 gm/dL (12-16) 03/20/18 17:15 Hct 41.0 % (41.0-60) 03/20/18 17:15 MCV 89.8 fl (80-99) 03/20/18 17:15 MCH 30.4 pg (26.0-30.0) H 03/20/18 17:15 MCHC Differential 33.9 pg (28.0-36.0) 03/20/18 17:15 RDW 14.0 % (11.5-20.0) 03/20/18 17:15 Plt Count 201 Th/cmm (150-400) 03/20/18 17:15 MPV 7.3 fl 03/20/18 17:15 Neutrophils % 69.1 % (40.0-80.0) 03/20/18 17:15 Lymphocytes % 20.5 % (20.0-50.0) 03/20/18 17:15 Monocytes % 9.3 % (2.0-10.0) 03/20/18 17:15 Eosinophils % 0.7 % (0.0-5.0) 03/20/18 17:15 Basophils % 0.4 % (0.0-2.0) 03/20/18 17:15 Sodium 135 mEq/L (136-145) L 04/03/18 08:30 Potassium 4.2 mEq/L (3.5-5.1) 04/03/18 08:30 Chloride 100 mEq/L (98-107) 04/03/18 08:30 Carbon Dioxide 29.4 mEq/L (21.0-31.0) 04/03/18 08:30 Anion Gap 9.8 (7.0-16.0) 04/03/18 08:30 BUN 20 mg/dL (7-25) 04/03/18 08:30 Creatinine 1.1 mg/dL (0.7-1.3) 04/03/18 08:30 Est GFR ( Amer) > 60.0 ml/min (>90) 04/03/18 08:30 Est GFR (Non-Af Amer) > 60.0 ml/min 04/03/18 08:30 BUN/Creatinine Ratio 18.2 04/03/18 08:30 Glucose 145 mg/dL (70-105) H 04/03/18 08:30 Calcium 10.0 mg/dL (8.6-10.3) 04/03/18 08:30 Total Bilirubin 0.6 mg/dL (0.3-1.0) 04/03/18 08:30 AST 11 U/L (13-39) L 04/03/18 08:30 ALT 11 U/L (7-52) 04/03/18 08:30 Alkaline Phosphatase 69 U/L (34-104) 04/03/18 08:30 Total Protein 7.5 gm/dL (6.0-8.3) 04/03/18 08:30 Albumin 4.2 gm/dL (4.2-5.5) 04/03/18 08:30 Globulin 3.3 gm/dL 04/03/18 08:30 Albumin/Globulin Ratio 1.3 (1.0-1.8) 04/03/18 08:30 Triglycerides 67 mg/dL (<150) 03/20/18 17:15 Cholesterol 138 mg/dL (<200) 03/20/18 17:15 LDL Cholesterol Direct 74 mg/dL (75-193) L 03/20/18 17:15 HDL Cholesterol 52 mg/dL (23-92) 03/20/18 17:15 Urine Source CLEAN C 04/08/18 09:25 Urine Color YELLOW 04/08/18 09:25 Urine Clarity CLEAR (CLEAR) 04/08/18 09:25 Urine pH 7.0 (4.6 - 8.0) 04/08/18 09:25 Ur Specific [place] 1.015 (1.005-1.030) 04/08/18 09:25 Urine Protein NEGATIVE mg/dL (NEGATIVE) 04/08/18 09:25 Urine Glucose (UA) NEGATIVE mg/dL (NEGATIVE) 04/08/18 09:25 Urine Ketones NEGATIVE mg/dL (NEGATIVE) 04/08/18 09:25 Urine Blood NEGATIVE (NEGATIVE) 04/08/18 09:25 Urine Nitrate NEGATIVE (NEGATIVE) 04/08/18 09:25 Urine Bilirubin NEGATIVE (NEGATIVE) 04/08/18 09:25 Urine Urobilinogen 0.2 E.U./dL (0.2 - 1.0) 04/08/18 09:25 Ur Leukocyte Esterase NEGATIVE (NEGATIVE) 04/08/18 09:25 Urine RBC NONE SEEN /hpf (0-5) 04/08/18 09:25 Urine WBC 0-2 /hpf (0-5) 04/08/18 09:25 Ur Epithelial Cells NONE SEEN /lpf (FEW) 04/08/18 09:25 Urine Bacteria OCCASIONAL /hpf (NONE SEEN) 04/08/18 09:25 - Physical Exam Vitals and I&O: Vital Signs Temp 97.4 F 04/10/18 11:34 Pulse 64 04/10/18 11:34 Resp 20 04/10/18 11:34 BP 105/66 04/10/18 11:34 Pulse Ox 97 04/10/18 11:34 Intake & Output 04/09/18 04/10/18 04/10/18 18:59 06:59 18:59 Intake Total 1100 Balance 1100 Intake: Oral 1100 Other: # Voids 4 # Bowel Movements 1 Active Medications: Current Medications Acetaminophen (Tylenol) 650 mg PO Q4HR PRN PRN Reason: Mild Pain / Temp above 100 Stop: 05/19/18 21:18 Last Admin: 04/09/18 08:08 Dose: 650 mg Al Hydrox/Mg Hydrox/Simethicone (Maalox) 30 ml PO Q4HR PRN PRN Reason: GI DISTRESS Stop: 05/19/18 21:18 Docusate Sodium (Colace) 100 mg PO BID KB Stop: 05/20/18 08:59 Last Admin: 04/10/18 08:17 Dose: 100 mg Magnesium Hydroxide (Milk Of Magnesia) 30 ml PO HS PRN PRN Reason: IF ORDERED STOOL SOFTENERS INE Stop: 05/19/18 21:41 Risperidone (Risperdal) 3 mg PO BID KB; Protocol Stop: 05/20/18 08:59 Last Admin: 04/10/18 08:17 Dose: 3 mg General: alert HEENT: NC/AT, PERRLA Neck: Supple Lungs: CTAB Cardiovascular: RRR, Normal S1, Normal S2 Abdomen: soft, non-tender, non-distended Extremities: excoriation Internal Medicine Assmt/Plan - Assessment Assessment: Agitation, arthritis, psychosis, chronic pains, and history of deep venous thrombosis. . - Plan Plan: contiue daily inr continue current plan of care Nutritional Asmnt/Malnutr-PDOC - Dietary Evaluation Malnutrition Findings (Please click <Entered> for more info): Nutritional Asmnt/Malnutrition Start: 03/25/18 14: 21 Text: Status: Complete Freq: Protocol: Document 03/25/18 14:21 [facility] (Rec: 03/25/18 14:27 [facility] [email or web address]) Nutritional Asmnt/Malnutrition Patient General Information Nutritional Screening Moderate Risk Diagnosis psychosis NOS Pertinent Medical Hx/Surgical Hx arthritis, DVT, psychosis Subjective Information Pt seen lying in bed, awake. Pt stated good food, no food preference provided. Per EMR, PO intake 100%, Current Diet Order/ Nutrition Support regular Pertinent Medications colace, risperdal Pertinent Labs 03/20 Na 128 Nutritional Hx/Data Height 6 ft Height (Calculated Centimeters) 182.9 Current Weight (lbs) 196 lb Weight (Calculated Kilograms) 88.9 Weight (Calculated Grams) 34707.1 [place] Body Weight 178 Body Mass Index (BMI) 26.6 Weight Status Approriate GI Symptoms GI Symptoms None Last BM 03/24 Difficult in: None Skin Integrity/Comment: intact Current %PO Good (75-100%) Estimated Nutritional Goals BEE in Kcals: Using Current wt Calories/Kcals/Kg 23-27 Kcals Calculated 8272-7036 Protein: Using Current wt Protein g/k.8-1 Protein Calculated 71-89 Fluid: ml 2047-2403ml (1ml/kcal) Nutritional Problem No current Nutrition Prob Problem N/A Intervention/Recommendation Comments 1. Continue with regular diet as ordered. 2. Monitor PO intake, wt, labs and skin integrity 3. F/U as low risk in 7 days, 04/01 Expected Outcomes/Goals Expected Outcomes/Goals 1. PO intake to meet at least 75% of nutritional needs. 2. Wt stability, skin to remain intact, labs to approach WNL.
[2018-04-11] MEDS: Multivitamin w/ Minerals Tab PO SCH (08:05)
--- NOTE | 2018-04-12 00:47 | Progress Notes ---
DATE: 04/11/2018 SUBJECTIVE: The patient was seen in his room. The patient is asleep but easily arousable. The patient appears to be guarded, easily gets frustrated and agitated. Otherwise, the patient is in no acute distress. OBJECTIVE: VITAL SIGNS: Temperature 97.8, heart rate 59, blood pressure 117/68, respirations of 20, and 98% on room air. HEENT: Head is atraumatic and normocephalic. Eyes: Bilateral conjunctivae are clear. Bilateral pupils are equally round and reactive. NECK: Supple. No JVD. CARDIOVASCULAR: S1 and S2, without murmur. PULMONARY: Clear to auscultation. GASTROINTESTINAL: Soft and nontender without guarding. Positive bowel sounds. MUSCULOSKELETAL: No clubbing. No cyanosis noted. ASSESSMENT: 1. Schizoaffective disorder. 2. Osteoarthritis. 3. History of deep venous thrombosis. PLAN: We will continue to monitor the patient's condition and behavior. Treatment plans were discussed with the patient's nurse. Treatment plans were discussed with Dr. Devlin. JOB# [id number]
--- NOTE | 2018-04-12 01:15 | Progress Notes ---
DATE: 04/11/2018 SUBJECTIVE: Case was discussed with staff of the patient and reviewed records. The patient was supposed to have been discharged yesterday; however, apparently he was not discharged. Today, he is in better mood. He tends to stay to himself, internally preoccupied. Continues to have episodes where he appears to be responding to internal stimuli; however, he is able to get out of bed. He is sleeping better, eating better. No side effects with the medication, no sedation, no nausea, no extrapyramidal symptoms. PLAN OF CARE: We will continue the patient in group therapy, milieu therapy, adjust the medication as needed. JOB# [id number]
[2018-04-12] MEDS: Multivitamin w/ Minerals Tab PO SCH (09:10)
--- NOTE | 2018-04-12 11:54 | Internal Medicine Prog Note ---
Internal Medicine Subjective - Subjective Patient is:: awake, verbal, other (in no distress, eating ,sleeping better ) Per staff patient has:: no adverse event, tolerating meds Internal Medicine Objective - Results Result Diagrams: 03/20/18 17:15 04/03/18 08:30 Recent Labs: Laboratory Last Values WBC 7.8 Th/cmm (4.8-10.8) 03/20/18 17:15 RBC 4.56 Mil/cmm (4.30-5.70) 03/20/18 17:15 Hgb 13.9 gm/dL (12-16) 03/20/18 17:15 Hct 41.0 % (41.0-60) 03/20/18 17:15 MCV 89.8 fl (80-99) 03/20/18 17:15 MCH 30.4 pg (26.0-30.0) H 03/20/18 17:15 MCHC Differential 33.9 pg (28.0-36.0) 03/20/18 17:15 RDW 14.0 % (11.5-20.0) 03/20/18 17:15 Plt Count 201 Th/cmm (150-400) 03/20/18 17:15 MPV 7.3 fl 03/20/18 17:15 Neutrophils % 69.1 % (40.0-80.0) 03/20/18 17:15 Lymphocytes % 20.5 % (20.0-50.0) 03/20/18 17:15 Monocytes % 9.3 % (2.0-10.0) 03/20/18 17:15 Eosinophils % 0.7 % (0.0-5.0) 03/20/18 17:15 Basophils % 0.4 % (0.0-2.0) 03/20/18 17:15 Sodium 135 mEq/L (136-145) L 04/03/18 08:30 Potassium 4.2 mEq/L (3.5-5.1) 04/03/18 08:30 Chloride 100 mEq/L (98-107) 04/03/18 08:30 Carbon Dioxide 29.4 mEq/L (21.0-31.0) 04/03/18 08:30 Anion Gap 9.8 (7.0-16.0) 04/03/18 08:30 BUN 20 mg/dL (7-25) 04/03/18 08:30 Creatinine 1.1 mg/dL (0.7-1.3) 04/03/18 08:30 Est GFR ( Amer) > 60.0 ml/min (>90) 04/03/18 08:30 Est GFR (Non-Af Amer) > 60.0 ml/min 04/03/18 08:30 BUN/Creatinine Ratio 18.2 04/03/18 08:30 Glucose 145 mg/dL (70-105) H 04/03/18 08:30 Calcium 10.0 mg/dL (8.6-10.3) 04/03/18 08:30 Total Bilirubin 0.6 mg/dL (0.3-1.0) 04/03/18 08:30 AST 11 U/L (13-39) L 04/03/18 08:30 ALT 11 U/L (7-52) 04/03/18 08:30 Alkaline Phosphatase 69 U/L (34-104) 04/03/18 08:30 Total Protein 7.5 gm/dL (6.0-8.3) 04/03/18 08:30 Albumin 4.2 gm/dL (4.2-5.5) 04/03/18 08:30 Globulin 3.3 gm/dL 04/03/18 08:30 Albumin/Globulin Ratio 1.3 (1.0-1.8) 04/03/18 08:30 Triglycerides 67 mg/dL (<150) 03/20/18 17:15 Cholesterol 138 mg/dL (<200) 03/20/18 17:15 LDL Cholesterol Direct 74 mg/dL (75-193) L 03/20/18 17:15 HDL Cholesterol 52 mg/dL (23-92) 03/20/18 17:15 Urine Source CLEAN C 04/08/18 09:25 Urine Color YELLOW 04/08/18 09:25 Urine Clarity CLEAR (CLEAR) 04/08/18 09:25 Urine pH 7.0 (4.6 - 8.0) 04/08/18 09:25 Ur Specific [place] 1.015 (1.005-1.030) 04/08/18 09:25 Urine Protein NEGATIVE mg/dL (NEGATIVE) 04/08/18 09:25 Urine Glucose (UA) NEGATIVE mg/dL (NEGATIVE) 04/08/18 09:25 Urine Ketones NEGATIVE mg/dL (NEGATIVE) 04/08/18 09:25 Urine Blood NEGATIVE (NEGATIVE) 04/08/18 09:25 Urine Nitrate NEGATIVE (NEGATIVE) 04/08/18 09:25 Urine Bilirubin NEGATIVE (NEGATIVE) 04/08/18 09:25 Urine Urobilinogen 0.2 E.U./dL (0.2 - 1.0) 04/08/18 09:25 Ur Leukocyte Esterase NEGATIVE (NEGATIVE) 04/08/18 09:25 Urine RBC NONE SEEN /hpf (0-5) 04/08/18 09:25 Urine WBC 0-2 /hpf (0-5) 04/08/18 09:25 Ur Epithelial Cells NONE SEEN /lpf (FEW) 04/08/18 09:25 Urine Bacteria OCCASIONAL /hpf (NONE SEEN) 04/08/18 09:25 - Physical Exam Vitals and I&O: Vital Signs Temp 0 F 04/12/18 06:09 Pulse 59 04/11/18 20:46 Resp 18 04/11/18 20:46 BP 110/56 04/11/18 20:46 Pulse Ox 96 04/11/18 14:00 Intake & Output 04/11/18 04/12/18 04/12/18 18:59 06:59 18:59 Intake Total 1000 240 Balance 1000 240 Weight (lbs) 88.904 kg Intake: Oral 1000 240 Other: # Voids 4 3 # Bowel Movements 1 0 Weight Source Bedscale Active Medications: Current Medications Acetaminophen (Tylenol) 650 mg PO Q4HR PRN PRN Reason: Mild Pain / Temp above 100 Stop: 05/19/18 21:18 Last Admin: 04/11/18 17:04 Dose: 650 mg Al Hydrox/Mg Hydrox/Simethicone (Maalox) 30 ml PO Q4HR PRN PRN Reason: GI DISTRESS Stop: 05/19/18 21:18 Docusate Sodium (Colace) 100 mg PO BID KB Stop: 05/20/18 08:59 Last Admin: 04/12/18 09:10 Dose: 100 mg Magnesium Hydroxide (Milk Of Magnesia) 30 ml PO HS PRN PRN Reason: IF ORDERED STOOL SOFTENERS INE Stop: 05/19/18 21:41 Risperidone (Risperdal) 3 mg PO BID KB; Protocol Stop: 05/20/18 08:59 Last Admin: 04/12/18 09:10 Dose: 3 mg General: alert HEENT: NC/AT, PERRLA Neck: Supple Lungs: CTAB Cardiovascular: RRR, Normal S1, Normal S2 Abdomen: soft, non-tender, non-distended Extremities: excoriation Internal Medicine Assmt/Plan - Assessment Assessment: agitation arthritis psychosis chronic pains h/o dvt - Plan Plan: as per psych will continue to monitor Nutritional Asmnt/Malnutr-PDOC - Dietary Evaluation Malnutrition Findings (Please click <Entered> for more info): Nutritional Asmnt/Malnutrition Start: 03/25/18 14: 21 Text: Status: Complete Freq: Protocol: Document 03/25/18 14:21 LCHENG (Rec: 03/25/18 14:27 [email or web address] [email or web address]) Nutritional Asmnt/Malnutrition Patient General Information Nutritional Screening Moderate Risk Diagnosis psychosis NOS Pertinent Medical Hx/Surgical Hx arthritis, DVT, psychosis Subjective Information Pt seen lying in bed, awake. Pt stated good food, no food preference provided. Per EMR, PO intake 100%, Current Diet Order/ Nutrition Support regular Pertinent Medications colace, risperdal Pertinent Labs 03/20 Na 128 Nutritional Hx/Data Height 1.83 m Height (Calculated Centimeters) 182.9 Current Weight (lbs) 88.904 kg Weight (Calculated Kilograms) 88.9 Weight (Calculated Grams) 60766.1 [place] Body Weight 178 Body Mass Index (BMI) 26.6 Weight Status Approriate GI Symptoms GI Symptoms None Last BM 03/24 Difficult in: None Skin Integrity/Comment: intact Current %PO Good (75-100%) Estimated Nutritional Goals BEE in Kcals: Using Current wt Calories/Kcals/Kg 23-27 Kcals Calculated 3800-2161 Protein: Using Current wt Protein g/k.8-1 Protein Calculated 71-89 Fluid: ml 2047-2403ml (1ml/kcal) Nutritional Problem No current Nutrition Prob Problem N/A Intervention/Recommendation Comments 1. Continue with regular diet as ordered. 2. Monitor PO intake, wt, labs and skin integrity 3. F/U as low risk in 7 days, 04/01 Expected Outcomes/Goals Expected Outcomes/Goals 1. PO intake to meet at least 75% of nutritional needs. 2. Wt stability, skin to remain intact, labs to approach WNL.
--- NOTE | 2018-04-12 13:37 | Progress Notes ---
DATE: 04/12/2018 SUBJECTIVE: Case was discussed with staff of the patient, reviewed records. The patient has been stable. Sleeping well, eating well. No suicidal ideation. No homicidal ideation. He is able to express himself better. He denies any side effects to the medication, no sedation, no nausea and no extrapyramidal symptoms. The staff report that he tend to be unpredictable, withdrawn, paranoid; however, probably this is his basic level of functioning. No side effects with the medication, no sedation, no nausea, no extrapyramidal symptoms. We will continue to work with the patient in group therapy, milieu therapy, and adjust the medication as needed. JOB# [id number]
[2018-04-13] MEDS: Multivitamin w/ Minerals Tab PO SCH (08:56)
--- NOTE | 2018-04-13 14:31 | Discharge Summary ---
DATE OF DISCHARGE: 04/13/2018 Case was discussed with staff of the patient, reviewed records. The discharge was postponed because there were no beds at the nursing facility. The patient continues to be stable. Sleeping well, eating well. No suicidal ideation, no homicidal ideation, no paranoia, no side effects with the medications. So at this point, the patient seems to be still ready to go to a lesser level of care and will be going back to [facility]. Discharge diagnoses and recommendations are still the same and I would be following up with the patient there as well as Dr. Devlin. JOB# [id number]
--- NOTE | 2018-04-13 14:54 | Internal Medicine Prog Note ---
Internal Medicine Subjective - Subjective Patient is:: awake, verbal, other (much better ) Per staff patient has:: no adverse event, tolerating meds Internal Medicine Objective - Results Result Diagrams: 03/20/18 17:15 04/03/18 08:30 Recent Labs: Laboratory Last Values WBC 7.8 Th/cmm (4.8-10.8) 03/20/18 17:15 RBC 4.56 Mil/cmm (4.30-5.70) 03/20/18 17:15 Hgb 13.9 gm/dL (12-16) 03/20/18 17:15 Hct 41.0 % (41.0-60) 03/20/18 17:15 MCV 89.8 fl (80-99) 03/20/18 17:15 MCH 30.4 pg (26.0-30.0) H 03/20/18 17:15 MCHC Differential 33.9 pg (28.0-36.0) 03/20/18 17:15 RDW 14.0 % (11.5-20.0) 03/20/18 17:15 Plt Count 201 Th/cmm (150-400) 03/20/18 17:15 MPV 7.3 fl 03/20/18 17:15 Neutrophils % 69.1 % (40.0-80.0) 03/20/18 17:15 Lymphocytes % 20.5 % (20.0-50.0) 03/20/18 17:15 Monocytes % 9.3 % (2.0-10.0) 03/20/18 17:15 Eosinophils % 0.7 % (0.0-5.0) 03/20/18 17:15 Basophils % 0.4 % (0.0-2.0) 03/20/18 17:15 Sodium 135 mEq/L (136-145) L 04/03/18 08:30 Potassium 4.2 mEq/L (3.5-5.1) 04/03/18 08:30 Chloride 100 mEq/L (98-107) 04/03/18 08:30 Carbon Dioxide 29.4 mEq/L (21.0-31.0) 04/03/18 08:30 Anion Gap 9.8 (7.0-16.0) 04/03/18 08:30 BUN 20 mg/dL (7-25) 04/03/18 08:30 Creatinine 1.1 mg/dL (0.7-1.3) 04/03/18 08:30 Est GFR ( Amer) > 60.0 ml/min (>90) 04/03/18 08:30 Est GFR (Non-Af Amer) > 60.0 ml/min 04/03/18 08:30 BUN/Creatinine Ratio 18.2 04/03/18 08:30 Glucose 145 mg/dL (70-105) H 04/03/18 08:30 Calcium 10.0 mg/dL (8.6-10.3) 04/03/18 08:30 Total Bilirubin 0.6 mg/dL (0.3-1.0) 04/03/18 08:30 AST 11 U/L (13-39) L 04/03/18 08:30 ALT 11 U/L (7-52) 04/03/18 08:30 Alkaline Phosphatase 69 U/L (34-104) 04/03/18 08:30 Total Protein 7.5 gm/dL (6.0-8.3) 04/03/18 08:30 Albumin 4.2 gm/dL (4.2-5.5) 04/03/18 08:30 Globulin 3.3 gm/dL 04/03/18 08:30 Albumin/Globulin Ratio 1.3 (1.0-1.8) 04/03/18 08:30 Triglycerides 67 mg/dL (<150) 03/20/18 17:15 Cholesterol 138 mg/dL (<200) 03/20/18 17:15 LDL Cholesterol Direct 74 mg/dL (75-193) L 03/20/18 17:15 HDL Cholesterol 52 mg/dL (23-92) 03/20/18 17:15 Urine Source CLEAN C 04/08/18 09:25 Urine Color YELLOW 04/08/18 09:25 Urine Clarity CLEAR (CLEAR) 04/08/18 09:25 Urine pH 7.0 (4.6 - 8.0) 04/08/18 09:25 Ur Specific [place] 1.015 (1.005-1.030) 04/08/18 09:25 Urine Protein NEGATIVE mg/dL (NEGATIVE) 04/08/18 09:25 Urine Glucose (UA) NEGATIVE mg/dL (NEGATIVE) 04/08/18 09:25 Urine Ketones NEGATIVE mg/dL (NEGATIVE) 04/08/18 09:25 Urine Blood NEGATIVE (NEGATIVE) 04/08/18 09:25 Urine Nitrate NEGATIVE (NEGATIVE) 04/08/18 09:25 Urine Bilirubin NEGATIVE (NEGATIVE) 04/08/18 09:25 Urine Urobilinogen 0.2 E.U./dL (0.2 - 1.0) 04/08/18 09:25 Ur Leukocyte Esterase NEGATIVE (NEGATIVE) 04/08/18 09:25 Urine RBC NONE SEEN /hpf (0-5) 04/08/18 09:25 Urine WBC 0-2 /hpf (0-5) 04/08/18 09:25 Ur Epithelial Cells NONE SEEN /lpf (FEW) 04/08/18 09:25 Urine Bacteria OCCASIONAL /hpf (NONE SEEN) 04/08/18 09:25 - Physical Exam Vitals and I&O: Vital Signs Temp 97.6 F 04/12/18 14:00 Pulse 56 04/12/18 14:00 Resp 20 04/12/18 14:00 BP 99/56 04/12/18 14:00 Pulse Ox 95 04/12/18 14:00 Intake & Output 04/12/18 04/13/18 04/13/18 18:59 06:59 18:59 Intake Total 1200 240 Balance 1200 240 Intake: Oral 1200 240 Other: # Voids 4 1 # Bowel Movements 2 Active Medications: Current Medications Acetaminophen (Tylenol) 650 mg PO Q4HR PRN PRN Reason: Mild Pain / Temp above 100 Stop: 05/19/18 21:18 Last Admin: 04/11/18 17:04 Dose: 650 mg Al Hydrox/Mg Hydrox/Simethicone (Maalox) 30 ml PO Q4HR PRN PRN Reason: GI DISTRESS Stop: 05/19/18 21:18 Docusate Sodium (Colace) 100 mg PO BID KB Stop: 05/20/18 08:59 Last Admin: 04/13/18 08:56 Dose: 100 mg Magnesium Hydroxide (Milk Of Magnesia) 30 ml PO HS PRN PRN Reason: IF ORDERED STOOL SOFTENERS INE Stop: 05/19/18 21:41 Risperidone (Risperdal) 3 mg PO BID KB; Protocol Stop: 05/20/18 08:59 Last Admin: 04/13/18 08:57 Dose: 3 mg General: alert HEENT: NC/AT, PERRLA Neck: Supple Lungs: CTAB Cardiovascular: RRR, Normal S1, Normal S2 Abdomen: soft, non-tender, non-distended Extremities: excoriation Internal Medicine Assmt/Plan - Assessment Assessment: agitation arthritis psychosis chronic pains h/o dvt - Plan Plan: dc planning Nutritional Asmnt/Malnutr-PDOC - Dietary Evaluation Malnutrition Findings (Please click <Entered> for more info): Nutritional Asmnt/Malnutrition Start: 03/25/18 14: 21 Text: Status: Complete Freq: Protocol: Document 03/25/18 14:21 LCHENG (Rec: 03/25/18 14:27 LCHENG [email or web address]) Nutritional Asmnt/Malnutrition Patient General Information Nutritional Screening Moderate Risk Diagnosis psychosis NOS Pertinent Medical Hx/Surgical Hx arthritis, DVT, psychosis Subjective Information Pt seen lying in bed, awake. Pt stated good food, no food preference provided. Per EMR, PO intake 100%, Current Diet Order/ Nutrition Support regular Pertinent Medications colace, risperdal Pertinent Labs 03/20 Na 128 Nutritional Hx/Data Height 1.83 m Height (Calculated Centimeters) 182.9 Current Weight (lbs) 88.904 kg Weight (Calculated Kilograms) 88.9 Weight (Calculated Grams) 74526.1 [place] Body Weight 178 Body Mass Index (BMI) 26.6 Weight Status Approriate GI Symptoms GI Symptoms None Last BM 03/24 Difficult in: None Skin Integrity/Comment: intact Current %PO Good (75-100%) Estimated Nutritional Goals BEE in Kcals: Using Current wt Calories/Kcals/Kg 23-27 Kcals Calculated 3980-4312 Protein: Using Current wt Protein g/k.8-1 Protein Calculated 71-89 Fluid: ml 2047-2403ml (1ml/kcal) Nutritional Problem No current Nutrition Prob Problem N/A Intervention/Recommendation Comments 1. Continue with regular diet as ordered. 2. Monitor PO intake, wt, labs and skin integrity 3. F/U as low risk in 7 days, 04/01 Expected Outcomes/Goals Expected Outcomes/Goals 1. PO intake to meet at least 75% of nutritional needs. 2. Wt stability, skin to remain intact, labs to approach WNL.
== END 2018-04-13 15:30 | DRG 885 ==
LOC: ER 16:25 → GERO 20:04
PROVIDERS: ADMIT Psychiatry & Neurology Psychiatry; ATTEND Psychiatry & Neurology Psychiatry
DX: F25.0 Schizoaffective disorder, bipolar type (principal); M19.90 Unspecified osteoarthritis, unspecified site; F29 Unspecified psychosis not due to a substance or known physiological condition; G89.29 Other chronic pain; F41.9 Anxiety disorder, unspecified; Z86.718 Personal history of other venous thrombosis and embolism
CPT/HCPCS: 36415-UA; 80053-TC; 80061-TC; 81001-TC; 83036-90; 85025-TC; 90899; G0410; J1650; Z7610

== ENCOUNTER 2019-08-30 12:53 | Inpatient (IN) | payer MEDICARE, OTHER ==
[2019-08-30] MEDS ORDERED: Magnesium Hydroxide (MOM) 30 mL UDC PO PRN (19:30)
[2019-08-31 00:42] VITALS: BP 136/76
[2019-08-31] MEDS: Multivitamin Tab PO SCH (09:49)
--- NOTE | 2019-08-31 10:36 | History and Physical ---
History of Present Illness - HPI Chief Complaint: 58 y/o male patient was brought to ER for evaluation due to complaints of Agitation and Striking out. HPI: 58 y/o male patient was admitted to [facility] for evaluation due to complaints of Agitation and Striking out. Patient has history of Arthritis, Chronic pain, Psychosis and History of DVT. Patient had an ER assessment and a workup was done. Patient had a Psych consultation and was diagnosed with Acute Psychosis, Agitation, Arthritis, Chronic pain and History of DVT. I will follow, treat and monitor patient. Patient will continue current treatment plan as ordered. 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 Pertinent Hx GI: Report: No Pertinent Hx Psych: Report: Psychosis, Other (Agitation.) Musculoskeletal: Report: Weakness, Other (Arthritis and chronic pain.) Rheumatologic: Report: No pertinent Hx Infectious Disease: Report: No Pertinent Hx Renal/: Report: No Pertinent Hx Endocrine: Report: No Pertinent Hx - Past Surgical History Past Surgical History: No pertinent Hx Family Medical History - Family Member Mother History Unknown: Yes Ethnicity: Unknown Living Status: Unknown Social History Smoke: No Alcohol: None Drugs: None Lives: Detention Domestic Violence: Negative Health Maintenance Health Maintenance: Other (Please see chart.) - Medications Home Medications: Home Medication Medication Instructions Recorded Type Acetaminophen [Tylenol] 650 mg PO Q4HR PRN tab 04/10/18 Rx Al Hyd/Mg Hyd/Simethicone [Maalox] 30 ml PO Q4HR PRN udc 04/10/18 Rx Docusate Sodium [Colace] 100 mg PO BID cap 04/10/18 Rx Magnesium Hydroxide [Milk of 30 ml PO HS PRN udc 04/10/18 Rx Magnesia] Multivitamin w/ Minerals 1 tab PO DAILY tab 04/10/18 Rx [Theragran M] risperiDONE [RisperDAL] 3 mg PO BID tab 04/10/18 Rx Other Medications: Please see medication reconciliation sheet. - Allergies Allergies/Adverse Reactions: Allergies Allergy/AdvReac Type Severity Reaction Status Date / Time No Known Allergies Allergy Verified 01/12/18 16:25 Review of Systems - Review of Systems Review of Systems: Patient is very agitated and has been acting out, needs close monitoring. Constitutional: Report: No Significant Eyes: Report: No Significant ENT: Report: No Significant Respiratory: Report: No Significant Cardiovascular: Report: No Significant Gastrointestinal: Report: No Significant Genitourinary: Report: No Significant Musculoskeletal: Report: Other Skin: Report: No Significant Neurological: Report: Incoordination Physical Exam - Physical Exam HEENT: Report: Ears Nose Throat within normal limits Neck: Report: Within normal limits Cardiovascular Systems: Report: +s1/s2 noted, Regular, Rate and Rhythm Respiratory: Report: Breath Sounds are within normal limits Abdomen: Report: Non-tender to palpation Back: Report: Inspection of back is within normal limits. Extremities: Report: Other (Chronic pain.) Skin: Report: Color of skin is within normal limits Neuro/Psych: Report: Other (Agitation and striking out.) - Lab Results All Lab Results last 24 hours: please see labs. - Assessment Assessment: Acute Psychosis. Agitation. Arthritis. Chronic pain. History of DVT. - Plan Plan: Continuation of care. Monitor Vitals, Labs, Hemoglobin levels. Continue present meds as directed. Monitor Diet/Nutritional support. Psych management as per Psych. Pain Management. Physical therapy/Occupational therapy. Fall precaution, frequent nursing rounds, and as needed restraints to prevent fall. Safety precaution. Supportive care. Continue collaborating with consulting specialists, case management and nursing team. Will Monitor patient and continue current treatment plan as ordered.
--- NOTE | 2019-08-31 12:38 | History & Physical ---
ADMIT DATE: 08/30/2019 IDENTIFYING INFORMATION: The patient is a 58-year-old male. CHIEF COMPLAINT: "I don't know." HISTORY OF PRESENT ILLNESS: The patient was sent from [facility]. He was first seen at [place] and medically cleared. From [place], the patient signed voluntary. The patient has been hitting staff at the [facility] and therefore has increased aggressiveness. The patient was diagnosed with bipolar disorder, paranoid schizophrenia, anxiety disorder, ambulatory, although he shuffles, he appears to have a steady ambulates around the unit. The patient wanted to talk to me, has no idea why he was here, he was able to recognize me. I have been seeing him for the past few years. He reported that he is sleeping well. He eats well. He has no clue why he was here. PAST PSYCHIATRIC HISTORY: Paranoid schizophrenia versus bipolar disorder. Per report, he has a history of prior suicide attempt by overdose long time ago. He has been hospitalized many times before. The patient denies substance abuse. MEDICAL HISTORY: The patient has no known drug allergy. The patient was seen by Dr. Devlin with a history of arthritis, chronic pain, and history of DVT, seen in the Emergency Room. The patient was continued with medication prior to admission. MEDICATIONS: The patient has been on Risperdal 1 mg twice a day and multivitamin. FAMILY AND SOCIAL HISTORY: He is for 6 years, which I doubt. He has been at [facility] for that long maybe, he reported to have 5 children, unable to tell me their age, he said he has 12 - 14 years of education. Last about his job, he could not tell me. The patient denies family psychotic disorder. He was ensured then he said no. MENTAL STATUS EXAMINATION: The patient is appropriately dressed, not well groomed. He was shuffling his gait, I was walking to his room with him. He was able to tell me the date, being 08/31/2019, but he is not sure why he is here. He said he is not depressed. The patient was hitting staff. He reports he sleeps well. He eats well. He has no clue that he was hitting staff. He denies any intent to harm himself or anyone. He is a poor historian. His long-term memory is poor, does not realize his age exactly. He believes he is 56, reality is 58. His short term is poor, cannot remember events that led him coming here. He was acting paranoid towards staff of the hitting them. He denies any auditory or visual hallucination, but he is a poor historian. He seems to have average ____; however, long or short term memory is poor because of his psychosis. Insight about his illness is poor, he does not realize his problems why he is here. Judgment is poor with him hitting staff. IMPRESSION: Chronic paranoid schizophrenia with acute exacerbation versus bipolar disorder with psychosis. MEDICAL DIAGNOSES: Arthritis, history of deep venous thrombosis. ASSETS: He is accepting treatment. Negative poor coping skills. PLAN: The patient will continue the Risperdal. We will do group therapy, milieu therapy, and individual therapy. ESTIMATED LENGTH OF STAY: 3-7 days. DISCHARGE CRITERIA: Decreasing agitation, no longer threatening. After discharge, outpatient treatment. JOB# [id number]
--- NOTE | 2019-08-31 13:53 | History and Physical ---
History of Present Illness - HPI Chief Complaint: transfer from [facility] medically cleared. HPI: 58 y/o male patient was admitted to [facility] for evaluation due to complaints of Agitation and Striking out. Patient has history of Arthritis, Chronic pain, Psychosis and History of DVT. Patient had an ER assessment and a workup was done. Patient had a Psych consultation and was diagnosed with Acute Psychosis, Agitation, Arthritis, Chronic pain and History of DVT. I will follow, treat and monitor patient. Patient will continue current treatment plan as ordered. Vital Signs: Last Vital Signs Temp 98.6 F 08/31/19 06:29 Pulse 51 08/31/19 06:29 Resp 20 08/31/19 06:29 BP 127/80 08/31/19 06:29 Pulse Ox 97 08/31/19 06:29 Past Medical History Other History: arthritis ,chronic pain, dvt Family Medical History - Family Member Mother History Unknown: Yes Ethnicity: Unknown Living Status: Unknown Social History Smoke: No Alcohol: None Drugs: None Lives: Retirement - Medications Home Medications: Home Medication Medication Instructions Recorded Type Acetaminophen [Tylenol] 650 mg PO Q4HR PRN tab 04/10/18 Rx Al Hyd/Mg Hyd/Simethicone [Maalox] 30 ml PO Q4HR PRN udc 04/10/18 Rx Docusate Sodium [Colace] 100 mg PO BID cap 04/10/18 Rx Magnesium Hydroxide [Milk of 30 ml PO HS PRN udc 04/10/18 Rx Magnesia] Multivitamin w/ Minerals 1 tab PO DAILY tab 04/10/18 Rx [Theragran M] risperiDONE [RisperDAL] 3 mg PO BID tab 04/10/18 Rx - Allergies Allergies/Adverse Reactions: Allergies Allergy/AdvReac Type Severity Reaction Status Date / Time No Known Allergies Allergy Verified 01/12/18 16:25 Review of Systems - Review of Systems Constitutional: Report: No Significant Eyes: Report: No Significant ENT: Report: No Significant Respiratory: Report: No Significant Cardiovascular: Report: No Significant Gastrointestinal: Report: No Significant Neurological: Report: No Significant Physical Exam - Physical Exam HEENT: Report: Ears Nose Throat within normal limits Neck: Report: Within normal limits Cardiovascular Systems: Report: +s1/s2 noted, Regular, Rate and Rhythm Respiratory: Report: Breath Sounds are within normal limits Abdomen: Report: Non-tender to palpation Extremities: Report: Non-tender to palpation. Skin: Report: Warm, Dry - Assessment Assessment: Acute Psychosis. Agitation. Arthritis. Chronic pain. History of DVT. - Plan Plan: Continuation of care. Monitor Vitals, Labs, Hemoglobin levels. Continue present meds as directed. Monitor Diet/Nutritional support. Psych management as per Psych. Pain Management. Physical therapy/Occupational therapy. Fall precaution, frequent nursing rounds, and as needed restraints to prevent fall. Safety precaution. Supportive care. Continue collaborating with consulting specialists, case management and nursing team. Will Monitor patient and continue current treatment plan as ordered.
[2019-09-01] MEDS: Multivitamin Tab PO SCH (08:20)
--- NOTE | 2019-09-01 13:02 | Internal Medicine Prog Note ---
Internal Medicine Subjective - Subjective Service Date: 09/01/19 Patient seen and examined:: with staff, without staff Patient is:: verbal, agitated, confused Patient Complaints of:: other (Striking out against staff at SNF.) Per staff patient has:: no adverse event, no episodes of fall Internal Medicine Objective - Physical Exam Vitals and I&O: Vital Signs Temp 97.7 F 09/01/19 05:34 Pulse 53 09/01/19 05:34 Resp 20 09/01/19 05:34 BP 126/58 09/01/19 05:34 Pulse Ox 98 09/01/19 05:34 Intake & Output 08/31/19 09/01/19 09/01/19 18:59 06:59 18:59 Intake Total 1300 Balance 1300 Intake: Oral 1300 Other: # Voids 3 3 # Bowel Movements 0 0 Active Medications: Current Medications Acetaminophen (Tylenol) 650 mg PO Q4H PRN PRN Reason: Pain (Mild 1-3) Stop: 10/30/19 00:51 Benztropine Mesylate (Cogentin) 0.5 mg PO BID [facility] Stop: 10/30/19 16:59 Last Admin: 09/01/19 08:19 Dose: 0.5 mg Docusate Sodium (Colace) 100 mg PO BID [facility] Stop: 10/30/19 08:59 Last Admin: 09/01/19 08:20 Dose: 100 mg Lorazepam (Ativan) 0.5 mg PO Q4HR PRN; Protocol PRN Reason: Anxiety Stop: 09/29/19 19:24 Magnesium Hydroxide (Milk Of Magnesia) 30 ml PO HS PRN PRN Reason: Constipation Multivitamins/Vitamin C (Theragran) 1 tab PO DAILY [facility] Stop: 10/30/19 08:59 Last Admin: 09/01/19 08:20 Dose: 1 tab Risperidone (Risperdal) 1 mg PO BID [facility]; Protocol Stop: 10/30/19 08:59 Zolpidem Tartrate (Ambien) 5 mg PO HS PRN PRN Reason: Insomnia Stop: 10/29/19 19:24 Last Admin: 08/31/19 21:04 Dose: 5 mg Physical Exam: Patient needs cose monitoring, patient is still very confused and easily frustrated. General: demented HEENT: NC/AT Neck: Supple, No JVD Lungs: CTAB Cardiovascular: RRR, Normal S1, Normal S2 Abdomen: soft, non-tender, non-distended Extremities: clear Neurological: no change Internal Medicine Assmt/Plan - Assessment Assessment: Chronic paranoid schizophrenia with acute exacerbation versus Bipolar disorder with Psychosis. Agitation. Arthritis. Chronic pain. History of DVT. - Plan Plan: Continuation of care. Monitor Vitals, Labs, Hemoglobin levels. Continue present meds as directed. Monitor Diet/Nutritional support. Psych management as per Psych. Pain Management. Physical therapy/Occupational therapy. Fall precaution, frequent nursing rounds, and as needed restraints to prevent fall. Safety precaution. Supportive care. Continue collaborating with consulting specialists, case management and nursing team. Will Monitor patient and continue present care management. Nutritional Asmnt/Malnutr-PDOC - Dietary Evaluation Malnutrition Findings (Please click <Entered> for more info): see orders.
--- NOTE | 2019-09-01 14:42 | Progress Notes ---
DATE: 09/01/2019 SUBJECTIVE: Case was discussed with staff of the patient, reviewed records. The patient continues to have poor insight, continues to be unable to make safe plan for self-care. Continues to have no clue why he is here, unpredictable, impulsive, needing redirection. He tolerated the Risperdal with no side effects. No sedation, no nausea, no extrapyramidal symptoms. We will continue outpatient group therapy, milieu therapy, and adjust medication as needed. JOB# [id number]
[2019-09-02] MEDS: Multivitamin Tab PO SCH (08:23)
--- NOTE | 2019-09-02 14:03 | Internal Medicine Prog Note ---
Internal Medicine Subjective - Subjective Service Date: 09/02/19 Patient seen and examined:: with staff Patient is:: verbal, agitated, confused Patient Complaints of:: other (Striking out against staff at SNF.) Per staff patient has:: no adverse event, no episodes of fall Internal Medicine Objective - Physical Exam Vitals and I&O: Vital Signs Temp 98.4 F 09/02/19 06:56 Pulse 63 09/02/19 06:56 Resp 17 09/02/19 08:00 BP 133/79 09/02/19 06:56 Pulse Ox 95 09/02/19 06:56 Intake & Output 09/01/19 09/02/19 09/02/19 18:59 06:59 18:59 Intake Total 1000 240 Balance 1000 240 Intake: Oral 1000 240 Other: # Voids 2 # Bowel Movements 1 0 Active Medications: Current Medications Acetaminophen (Tylenol) 650 mg PO Q4H PRN PRN Reason: Pain (Mild 1-3) Stop: 10/30/19 00:51 Benztropine Mesylate (Cogentin) 0.5 mg PO BID [facility] Stop: 10/30/19 16:59 Last Admin: 09/02/19 08:23 Dose: 0.5 mg Docusate Sodium (Colace) 100 mg PO BID [facility] Stop: 10/30/19 08:59 Last Admin: 09/02/19 08:23 Dose: 100 mg Lorazepam (Ativan) 0.5 mg PO Q4HR PRN; Protocol PRN Reason: Anxiety Stop: 09/29/19 19:24 Magnesium Hydroxide (Milk Of Magnesia) 30 ml PO HS PRN PRN Reason: Constipation Multivitamins/Vitamin C (Theragran) 1 tab PO DAILY [facility] Stop: 10/30/19 08:59 Last Admin: 09/02/19 08:23 Dose: 1 tab Risperidone (Risperdal) 1 mg PO BID [facility]; Protocol Stop: 10/30/19 08:59 Last Admin: 09/02/19 09:52 Dose: 1 mg Zolpidem Tartrate (Ambien) 5 mg PO HS PRN PRN Reason: Insomnia Stop: 10/29/19 19:24 Last Admin: 09/01/19 21:07 Dose: 5 mg Physical Exam: Patient needs close monitoring, patient is very irritable, agitated mood. General: demented HEENT: NC/AT Neck: Supple, No JVD Lungs: CTAB Cardiovascular: RRR, Normal S1, Normal S2 Abdomen: soft, non-tender, non-distended Extremities: clear Neurological: no change Internal Medicine Assmt/Plan - Assessment Assessment: Chronic paranoid schizophrenia with acute exacerbation versus Bipolar disorder with Psychosis. Agitation. Arthritis. Chronic pain. History of DVT. - Plan Plan: Continuation of care. Monitor Vitals, Labs, Hemoglobin levels. Continue present meds as directed. Monitor Diet/Nutritional support. Psych management as per Psych. Pain Management. Physical therapy/Occupational therapy. Fall precaution, frequent nursing rounds, and as needed restraints to prevent fall. Safety precaution. Supportive care. Continue collaborating with consulting specialists, case management and nursing team. Will Monitor patient and continue present care management. Nutritional Asmnt/Malnutr-PDOC - Dietary Evaluation Malnutrition Findings (Please click <Entered> for more info): please see orders.
--- NOTE | 2019-09-02 14:44 | Progress Notes ---
DATE: 09/02/2019 Case was discussed with staff of the patient, reviewed records. The patient continues to be unpredictable, impulsive, needing redirection. Continues to have poor insight, easily agitated, irritable at times, confused, but in general, he is still somewhat paranoid. No side effects with the medication, no sedation, no nausea, no extrapyramidal symptoms. He tolerated the Risperdal with no side effects and he is on Cogentin. We will continue to work with the patient in group therapy, milieu therapy, and adjust the medication as needed. JOB# [id number]
[2019-09-03] MEDS: Multivitamin Tab PO SCH (08:20)
--- NOTE | 2019-09-03 11:57 | Internal Medicine Prog Note ---
Internal Medicine Subjective - Subjective Service Date: 09/03/19 Patient seen and examined:: with staff, chart reviewed Patient is:: verbal, agitated, confused Patient Complaints of:: other (Striking out against staff at SNF.) Per staff patient has:: no adverse event, no episodes of fall Internal Medicine Objective - Physical Exam Vitals and I&O: Vital Signs Temp 97.4 F 09/03/19 06:08 Pulse 55 09/03/19 06:08 Resp 20 09/03/19 06:08 BP 128/80 09/03/19 06:08 Pulse Ox 97 09/03/19 06:08 Intake & Output 09/02/19 09/03/19 09/03/19 18:59 06:59 18:59 Intake Total 1000 240 Balance 1000 240 Intake: Oral 1000 240 Other: # Voids 4 2 # Bowel Movements 1 0 Active Medications: Current Medications Acetaminophen (Tylenol) 650 mg PO Q4H PRN PRN Reason: Pain (Mild 1-3) Stop: 10/30/19 00:51 Benztropine Mesylate (Cogentin) 0.5 mg PO BID [facility] Stop: 10/30/19 16:59 Last Admin: 09/03/19 08:25 Dose: 0.5 mg Docusate Sodium (Colace) 100 mg PO BID [facility] Stop: 10/30/19 08:59 Last Admin: 09/03/19 08:20 Dose: 100 mg Lorazepam (Ativan) 0.5 mg PO Q4HR PRN; Protocol PRN Reason: Anxiety Stop: 09/29/19 19:24 Last Admin: 09/03/19 04:14 Dose: 0.5 mg Magnesium Hydroxide (Milk Of Magnesia) 30 ml PO HS PRN PRN Reason: Constipation Multivitamins/Vitamin C (Theragran) 1 tab PO DAILY [facility] Stop: 10/30/19 08:59 Last Admin: 09/03/19 08:20 Dose: 1 tab Risperidone 1 mg/ Risperidone (0.5 mg) 1.5 mg PO BID [facility] Stop: 11/02/19 16:59 Zolpidem Tartrate (Ambien) 5 mg PO HS PRN PRN Reason: Insomnia Stop: 10/29/19 19:24 Last Admin: 09/02/19 21:58 Dose: 5 mg Physical Exam: Patient needs close monitoring, patient is still very combative, poor insight, very angry. General: demented HEENT: NC/AT Neck: Supple, No JVD Lungs: CTAB Cardiovascular: RRR, Normal S1, Normal S2 Abdomen: soft, non-tender, non-distended Extremities: clear Neurological: no change Internal Medicine Assmt/Plan - Assessment Assessment: Chronic paranoid schizophrenia with acute exacerbation versus Bipolar disorder with Psychosis. Agitation. Arthritis. Chronic pain. History of DVT. - Plan Plan: Continuation of care. Monitor Vitals, Labs, Hemoglobin levels. Continue present meds as directed. Monitor Diet/Nutritional support. Psych management as per Psych. Pain Management. Physical therapy/Occupational therapy. Fall precaution, frequent nursing rounds, and as needed restraints to prevent fall. Safety precaution. Supportive care. Continue collaborating with consulting specialists, case management and nursing team. Will Monitor patient and continue present care management. Nutritional Asmnt/Malnutr-PDOC - Dietary Evaluation Malnutrition Findings (Please click <Entered> for more info): Please see orders.
--- NOTE | 2019-09-03 19:46 | Progress Notes ---
DATE: 09/03/2019 Case was discussed with staff of the patient, reviewed records. The patient continues to be paranoid, irritable. Continues to have poor insight. Continues to need redirection. Continues to be easily agitated. He has been compliant with the medication, no side effects, no sedation, no nausea, no extrapyramidal symptoms. I will be increasing Risperdal to 1.5 mg twice a day and so far no side effects with the medication, no sedation, no nausea, no extrapyramidal symptoms. We will continue the patient in group therapy, milieu therapy, adjust medication as needed. JOB# [id number]
[2019-09-04] MEDS: Multivitamin Tab PO SCH (09:03)
--- NOTE | 2019-09-04 17:53 | Progress Notes ---
DATE: 09/04/2019 SUBJECTIVE: The patient was seen in the dining area. The patient appears to be guarded, easily gets frustrated, poor impulse control. Suggested will continue to be paranoid and suspicious. Otherwise, the patient appears to be in no acute distress. OBJECTIVE: VITAL SIGNS: Temperature 98.6, heart rate 65, blood pressure 105/55, respirations 20, 97% on room air. HEENT: Head is atraumatic and normocephalic. Eyes: Bilateral conjunctivae are clear. Bilateral pupils are equally round and reactive. NECK: Supple. No JVD. CARDIOVASCULAR: S1 and S2, without murmur. PULMONARY: Clear to auscultation. GASTROINTESTINAL: Soft and nontender without guarding. Positive bowel sounds. MUSCULOSKELETAL: No clubbing. No cyanosis noted. ASSESSMENT: 1. Schizophrenia. 2. Osteoarthritis. 3. History of deep vein thrombosis. PLAN: We will continue to keep the patient to inpatient Psychiatric Unit. We will follow up with a psychiatrist to monitor the patient's condition and behavior. We will put the patient on fall precautions. Treatment plans were discussed with the patient's nurse. Treatment plans were discussed with Dr. Devlin. JOB# [id number]
--- NOTE | 2019-09-04 18:28 | Progress Notes ---
DATE: 09/04/[address] Torres. IDENTIFYING DATA: This is a 58-year-old male from [facility] with a history of bipolar, disorganized and at times incoherent. Medication reconciliation reviewed. Risperidone 1.5 b.i.d. As early as yesterday, nursing staff reporting that the patient has been easily agitated, needing a lot of redirection. Today on [id number] evaluation, the patient is isolative in his room after focusing __ and avoidant and refusing to be interviewed. ASSESSMENT AND PLAN: History of schizoaffective bipolar type, currently on risperidone. No side effects noted. We will continue with the recent increase of risperidone to 1.5 b.i.d. JOB# [id number]
[2019-09-05] MEDS: Multivitamin Tab PO SCH (08:19)
--- NOTE | 2019-09-05 13:41 | Internal Medicine Prog Note ---
Internal Medicine Subjective - Subjective Patient is:: awake, verbal, ambulating, agitated, confused Patient Complaints of:: other Per staff patient has:: no adverse event, no episodes of fall Internal Medicine Objective - Physical Exam Vitals and I&O: Vital Signs Temp 97.1 F 09/05/19 06:05 Pulse 53 09/05/19 06:05 Resp 20 09/05/19 06:05 BP 119/72 09/05/19 06:05 Pulse Ox 96 09/05/19 06:05 Intake & Output 09/04/19 09/05/19 09/05/19 17:59 06:59 18:59 Intake Total Balance Intake: Oral Other: # Voids # Bowel Movements Active Medications: Current Medications Acetaminophen (Tylenol) 650 mg PO Q4H PRN PRN Reason: Pain (Mild 1-3) Stop: 10/30/19 00:51 Benztropine Mesylate (Cogentin) 0.5 mg PO BID [facility] Stop: 10/30/19 16:59 Last Admin: 09/05/19 08:19 Dose: 0.5 mg Docusate Sodium (Colace) 100 mg PO BID [facility] Stop: 10/30/19 08:59 Last Admin: 09/05/19 08:19 Dose: 100 mg Lorazepam (Ativan) 0.5 mg PO Q4HR PRN; Protocol PRN Reason: Anxiety Stop: 09/29/19 19:24 Last Admin: 09/04/19 02:57 Dose: 0.5 mg Magnesium Hydroxide (Milk Of Magnesia) 30 ml PO HS PRN PRN Reason: Constipation Multivitamins/Vitamin C (Theragran) 1 tab PO DAILY [facility] Stop: 10/30/19 08:59 Last Admin: 09/05/19 08:19 Dose: 1 tab Risperidone 1 mg/ Risperidone (0.5 mg) 1.5 mg PO BID [facility] Stop: 11/02/19 16:59 Last Admin: 09/05/19 08:19 Dose: 1.5 mg Zolpidem Tartrate (Ambien) 5 mg PO HS PRN PRN Reason: Insomnia Stop: 10/29/19 19:24 Last Admin: 09/04/19 20:14 Dose: 5 mg General: demented, NAD HEENT: NC/AT Neck: Supple, No JVD Lungs: CTAB Cardiovascular: RRR, Normal S1, Normal S2 Abdomen: soft, non-tender, non-distended Extremities: clear Neurological: no change Internal Medicine Assmt/Plan - Assessment Assessment: Schizophrenia OA Hx of DVT - Plan Plan: Continue current managements Monitor VS Monitor Labs Psych management per Psych Pain managment as needed. Monitor nutritional needs. Fall Precaution Continue collaboration with interdisciplinary team.
--- NOTE | 2019-09-05 22:31 | Progress Notes ---
DATE: 09/05/[address] Torres. Today on [id number] evaluation, the patient continues to have disorganized thought process, mumbles and very difficult to follow his train of thought when he walks away, somewhere to be talking to himself, responding. ____ responding, thought blocking, disorganized thought process. ASSESSMENT AND PLAN: Schizoaffective disorder. Continue with the recent increase of risperidone to target the patient's ongoing disorganized thought process as noted above. JOB# [id number]
[2019-09-06] MEDS: Multivitamin Tab PO SCH (08:23)
--- NOTE | 2019-09-06 17:13 | Internal Medicine Prog Note ---
Internal Medicine Subjective - Subjective Service Date: 09/06/19 Patient is:: awake, verbal, ambulating, agitated, confused Patient Complaints of:: other Per staff patient has:: no adverse event, no episodes of fall Internal Medicine Objective - Physical Exam Vitals and I&O: Vital Signs Temp 98.0 F 09/06/19 14:00 Pulse 75 09/06/19 14:00 Resp 18 09/06/19 14:00 BP 118/76 09/06/19 14:00 Pulse Ox 96 09/06/19 14:00 Intake & Output 09/05/19 09/06/19 09/06/19 18:59 06:59 18:59 Intake Total 600 120 Balance 600 120 Intake: Oral 600 120 Other: # Voids 3 3 # Bowel Movements 0 0 Stool Characteristics Soft Soft Formed Formed Brown Brown Active Medications: Current Medications Acetaminophen (Tylenol) 650 mg PO Q4H PRN PRN Reason: Pain (Mild 1-3) Stop: 10/30/19 00:51 Benztropine Mesylate (Cogentin) 0.5 mg PO BID [facility] Stop: 10/30/19 16:59 Last Admin: 09/06/19 16:29 Dose: 0.5 mg Docusate Sodium (Colace) 100 mg PO BID [facility] Stop: 10/30/19 08:59 Last Admin: 09/06/19 16:29 Dose: 100 mg Lorazepam (Ativan) 0.5 mg PO Q4HR PRN; Protocol PRN Reason: Anxiety Stop: 09/29/19 19:24 Last Admin: 09/04/19 02:57 Dose: 0.5 mg Magnesium Hydroxide (Milk Of Magnesia) 30 ml PO HS PRN PRN Reason: Constipation Multivitamins/Vitamin C (Theragran) 1 tab PO DAILY [facility] Stop: 10/30/19 08:59 Last Admin: 09/06/19 08:23 Dose: 1 tab Risperidone (Risperdal) 2 mg PO BID [facility] Stop: 11/05/19 16:59 Last Admin: 09/06/19 16:28 Dose: 2 mg Zolpidem Tartrate (Ambien) 5 mg PO HS PRN PRN Reason: Insomnia Stop: 10/29/19 19:24 Last Admin: 09/05/19 21:13 Dose: 5 mg General: demented, NAD HEENT: NC/AT Neck: Supple, No JVD Lungs: CTAB Cardiovascular: RRR, Normal S1, Normal S2 Abdomen: soft, non-tender, non-distended Extremities: clear Neurological: no change Internal Medicine Assmt/Plan - Assessment Assessment: Acute Psychosis. Agitation. Arthritis. Chronic pain. History of DVT. - Plan Plan: Continuation of care. Monitor Vitals, Labs, Hemoglobin levels. Continue present meds as directed. Monitor Diet/Nutritional support. Psych management as per Psych. Pain Management. Physical therapy/Occupational therapy. Fall precaution, frequent nursing rounds, and as needed restraints to prevent fall. Safety precaution. Supportive care. Continue collaborating with consulting specialists, case management and nursing team. Will Monitor patient and continue current treatment plan as ordered. Nutritional Asmnt/Malnutr-PDOC - Dietary Evaluation Malnutrition Findings (Please click <Entered> for more info): Nutritional Asmnt/Malnutrition Start: 09/06/19 15: 01 Text: Status: Complete Freq: Protocol: Document 09/06/19 15:02 MARKUS (Rec: 09/06/19 15:17 MARKUS [id number]) Nutritional Asmnt/Malnutrition Patient General Information Nutritional Screening Low Risk Diagnosis Psychosis Pertinent Medical Hx/Surgical Hx Arthritis, Chronic pain, psychosis, history of DVT Subjective Information Pt is a 58-year-old male admitted on 08/29 d/t agitation and striking out. Pt is eating an estimated 95% of meals per Meal/Nutrition Activity Record. Dietary is currently providing an estimated 2200 kcals and 94 gm Pro, per Pt PO intake this is providing an estimated 2090 kcals and 89gm Pro to meet 95% kcal and 100+% Pro needs- adequate. Visited pt. after lunch, introduced myself and inquired about lunch. Pt. was verbally unresponsive. Spoke with pt. nurse Aleksandar. Nurse stated pt. is eating well and advised still pending pt. lab results, will monitor at follow-up. Anthropometrics HT: 60 WT: 196 LB (89.09 kg) BMI: 26.58 (Overweight) GI/ Skin Integrity GI: WNL, Soft BM: 09/04 x1 I/O: 720/Not Noted Skin: WNL, Intact, Dryness Lacho: 21 Diet Order: Regular Estimated Energy Needs: ( Geriatric, CBW) 5595-1973 kcals (25-30 kcals/ kg) 90-107g Pro (1.0-1.2 g/kg) 9365-5661 ml (25-30 ml/kg) Current Diet Order/ Nutrition Support Regular Patient / S.O Can't verbalize diet edu Pertinent Medications Colace, MOM (PRN), Theragran Pertinent Labs No labs charted; will monitor at follow-up Nutritional Hx/Data Height 6 ft Height (Calculated Centimeters) 182.9 Current Weight (lbs) 196 lb Weight (Calculated Kilograms) 88.9 Weight (Calculated Grams) 25931.1 Orient Body Weight 166 % Orient Body Weight 85 Body Mass Index (BMI) 26.6 Weight Status Overweight GI Symptoms GI Symptoms None Last BM 09/04 x1 Difficult in: None Skin Integrity/Comment: Skin: WNL, Intact, Dryness Lacho: 21 Current %PO Good (75-100%) Estimated Nutritional Goals Kcals Calculated 2200 - 2600 Protein: Using Current wt Protein g/k-107 Fluid: ml 2253-8524 (25-30 ml/kg) Nutritional Problem 1. Problem Problem No nutrition diagnosis at this time. Etiology N/A Signs/Symptoms: N/A Malnutrition Related to Morbid Obesity Malnutrition related to morbid obesity No Intervention/Recommendation Comments Continue regular diet as tolerated. Expected Outcomes/Goals Expected Outcomes/Goals 1. Continue regular diet as tolerated. 2. PO intake to continue to meet 75% of estimated nutritional needs. 3. Monitor PO intake, wt, nutrition related labs to trend WNL. 4. F/U as low risk in 7-10 days, 09/12-09/15
--- NOTE | 2019-09-06 23:27 | Progress Notes ---
DATE: 09/06/2019 Case was discussed with staff of the patient, reviewed records. The patient continues to have poor insight, unable to make safe plan for self-care. At times, responding to internal stimuli, disorganized thought and continues to be unpredictable and impulsive. No side effects with the medication, no sedation, no nausea, no extrapyramidal symptoms. He tolerated increase in Risperdal with no side effects, increasing the dose further to 2 mg twice a day to help increase his thought disorder, disorganized behavior, and paranoia. We will continue outpatient group therapy, milieu therapy, adjust medication as needed. JOB# [id number]
[2019-09-07] MEDS: Multivitamin Tab PO SCH (08:10)
--- NOTE | 2019-09-07 16:05 | Internal Medicine Prog Note ---
Internal Medicine Subjective - Subjective Service Date: 09/07/19 Patient is:: awake, verbal, ambulating, agitated, confused Patient Complaints of:: other Per staff patient has:: no adverse event, no episodes of fall Internal Medicine Objective - Physical Exam Vitals and I&O: Vital Signs Temp 98.2 F 09/07/19 14:00 Pulse 69 09/07/19 14:00 Resp 19 09/07/19 14:00 BP 129/71 09/07/19 14:00 Pulse Ox 96 09/07/19 14:00 Intake & Output 09/06/19 09/07/19 09/07/19 18:59 06:59 18:59 Intake Total 1300 260 Balance 1300 260 Intake: Oral 1300 260 Other: # Voids 3 2 # Bowel Movements 0 1 Stool Characteristics Soft Soft Soft Formed Formed Formed Brown Brown Brown Active Medications: Current Medications Acetaminophen (Tylenol) 650 mg PO Q4H PRN PRN Reason: Pain (Mild 1-3) Stop: 10/30/19 00:51 Benztropine Mesylate (Cogentin) 0.5 mg PO BID KB Stop: 10/30/19 16:59 Last Admin: 09/07/19 08:10 Dose: 0.5 mg Docusate Sodium (Colace) 100 mg PO BID KB Stop: 10/30/19 08:59 Last Admin: 09/07/19 08:10 Dose: 100 mg Lorazepam (Ativan) 0.5 mg PO Q4HR PRN; Protocol PRN Reason: Anxiety Stop: 09/29/19 19:24 Last Admin: 09/04/19 02:57 Dose: 0.5 mg Magnesium Hydroxide (Milk Of Magnesia) 30 ml PO HS PRN PRN Reason: Constipation Multivitamins/Vitamin C (Theragran) 1 tab PO DAILY KB Stop: 10/30/19 08:59 Last Admin: 09/07/19 08:10 Dose: 1 tab Risperidone (Risperdal) 2 mg PO BID KB Stop: 11/05/19 16:59 Last Admin: 09/07/19 08:11 Dose: 2 mg Zolpidem Tartrate (Ambien) 5 mg PO HS PRN PRN Reason: Insomnia Stop: 10/29/19 19:24 Last Admin: 09/06/19 20:27 Dose: 5 mg General: demented, NAD HEENT: NC/AT Neck: Supple, No JVD Lungs: CTAB Cardiovascular: RRR, Normal S1, Normal S2 Abdomen: soft, non-tender, non-distended Extremities: clear Neurological: no change Internal Medicine Assmt/Plan - Assessment Assessment: Acute Psychosis. Agitation. Arthritis. Chronic pain. History of DVT. - Plan Plan: Continuation of care. Monitor Vitals, Labs, Hemoglobin levels. Continue present meds as directed. Monitor Diet/Nutritional support. Psych management as per Psych. Pain Management. Physical therapy/Occupational therapy. Fall precaution, frequent nursing rounds, and as needed restraints to prevent fall. Safety precaution. Supportive care. Continue collaborating with consulting specialists, case management and nursing team. Will Monitor patient and continue current treatment plan as ordered. Nutritional Asmnt/Malnutr-PDOC - Dietary Evaluation Malnutrition Findings (Please click <Entered> for more info): Nutritional Asmnt/Malnutrition Start: 09/06/19 15: 01 Text: Status: Complete Freq: Protocol: Document 09/06/19 15:02 MARKUS (Rec: 09/06/19 15:17 MARKUS [id number]) Nutritional Asmnt/Malnutrition Patient General Information Nutritional Screening Low Risk Diagnosis Psychosis Pertinent Medical Hx/Surgical Hx Arthritis, Chronic pain, psychosis, history of DVT Subjective Information Pt is a 58-year-old male admitted on 08/29 d/t agitation and striking out. Pt is eating an estimated 95% of meals per Meal/Nutrition Activity Record. Dietary is currently providing an estimated 2200 kcals and 94 gm Pro, per Pt PO intake this is providing an estimated 2090 kcals and 89gm Pro to meet 95% kcal and 100+% Pro needs- adequate. Visited pt. after lunch, introduced myself and inquired about lunch. Pt. was verbally unresponsive. Spoke with pt. nurse Aleksandar. Nurse stated pt. is eating well and advised still pending pt. lab results, will monitor at follow-up. Anthropometrics HT: 60 WT: 196 LB (89.09 kg) BMI: 26.58 (Overweight) GI/ Skin Integrity GI: WNL, Soft BM: 09/04 x1 I/O: 720/Not Noted Skin: WNL, Intact, Dryness Lacho: 21 Diet Order: Regular Estimated Energy Needs: ( Geriatric, CBW) 4540-7819 kcals (25-30 kcals/ kg) 90-107g Pro (1.0-1.2 g/kg) 2273-7902 ml (25-30 ml/kg) Current Diet Order/ Nutrition Support Regular Patient / S.O Can't verbalize diet edu Pertinent Medications Colace, MOM (PRN), Theragran Pertinent Labs No labs charted; will monitor at follow-up Nutritional Hx/Data Height 6 ft Height (Calculated Centimeters) 182.9 Current Weight (lbs) 196 lb Weight (Calculated Kilograms) 88.9 Weight (Calculated Grams) 08966.1 [place] Body Weight 166 % [place] Body Weight 85 Body Mass Index (BMI) 26.6 Weight Status Overweight GI Symptoms GI Symptoms None Last BM 09/04 x1 Difficult in: None Skin Integrity/Comment: Skin: WNL, Intact, Dryness Lacho: 21 Current %PO Good (75-100%) Estimated Nutritional Goals Kcals Calculated 2200 - 2600 Protein: Using Current wt Protein g/k-107 Fluid: ml 3228-4574 (25-30 ml/kg) Nutritional Problem 1. Problem Problem No nutrition diagnosis at this time. Etiology N/A Signs/Symptoms: N/A Malnutrition Related to Morbid Obesity Malnutrition related to morbid obesity No Intervention/Recommendation Comments Continue regular diet as tolerated. Expected Outcomes/Goals Expected Outcomes/Goals 1. Continue regular diet as tolerated. 2. PO intake to continue to meet 75% of estimated nutritional needs. 3. Monitor PO intake, wt, nutrition related labs to trend WNL. 4. F/U as low risk in 7-10 days, 09/12-09/15
--- NOTE | 2019-09-07 22:51 | Progress Notes ---
DATE: 09/07/2019 Case was discussed with staff of the patient, reviewed records. The patient is doing a little bit better. He tolerated the increase in his Risperdal yesterday to 2 mg twice a day with no side effects, no sedation, no nausea, no extrapyramidal symptoms. He is sleeping better, eating better. No side effects with the medications. Working on discharge plan and will continue to work with the patient in group therapy, milieu therapy, and adjust the medication as needed. JOB# [id number]
[2019-09-08] MEDS: Multivitamin Tab PO SCH (08:05)
--- NOTE | 2019-09-08 13:41 | Internal Medicine Prog Note ---
Internal Medicine Subjective - Subjective Service Date: 09/08/19 Patient is:: awake, verbal, ambulating, agitated, confused Patient Complaints of:: other Per staff patient has:: no adverse event, no episodes of fall Internal Medicine Objective - Physical Exam Vitals and I&O: Vital Signs Temp 98.6 F 09/08/19 06:26 Pulse 58 09/08/19 06:26 Resp 18 09/08/19 08:00 BP 114/68 09/08/19 06:26 Pulse Ox 98 09/08/19 06:26 Intake & Output 09/07/19 09/08/19 09/08/19 18:59 06:59 18:59 Intake Total 1500 120 Balance 1500 120 Intake: Oral 1500 120 Other: # Voids 3 3 # Bowel Movements 0 0 Stool Characteristics Soft Soft Formed Formed Brown Brown Active Medications: Current Medications Acetaminophen (Tylenol) 650 mg PO Q4H PRN PRN Reason: Pain (Mild 1-3) Stop: 10/30/19 00:51 Benztropine Mesylate (Cogentin) 0.5 mg PO BID KB Stop: 10/30/19 16:59 Last Admin: 09/08/19 08:05 Dose: 0.5 mg Docusate Sodium (Colace) 100 mg PO BID KB Stop: 10/30/19 08:59 Last Admin: 09/08/19 08:05 Dose: 100 mg Lorazepam (Ativan) 0.5 mg PO Q4HR PRN; Protocol PRN Reason: Anxiety Stop: 09/29/19 19:24 Last Admin: 09/04/19 02:57 Dose: 0.5 mg Magnesium Hydroxide (Milk Of Magnesia) 30 ml PO HS PRN PRN Reason: Constipation Multivitamins/Vitamin C (Theragran) 1 tab PO DAILY KB Stop: 10/30/19 08:59 Last Admin: 09/08/19 08:05 Dose: 1 tab Risperidone 2 mg/ Risperidone (0.5 mg) 2.5 mg PO BID KB Stop: 11/07/19 16:59 Zolpidem Tartrate (Ambien) 5 mg PO HS PRN PRN Reason: Insomnia Stop: 10/29/19 19:24 Last Admin: 09/07/19 20:51 Dose: 5 mg General: demented, NAD HEENT: NC/AT Neck: Supple, No JVD Lungs: CTAB Cardiovascular: RRR, Normal S1, Normal S2 Abdomen: soft, non-tender, non-distended Extremities: clear Neurological: no change Internal Medicine Assmt/Plan - Assessment Assessment: Acute Psychosis. Agitation. Arthritis. Chronic pain. History of DVT. - Plan Plan: Continuation of care. Monitor Vitals, Labs, Hemoglobin levels. Continue present meds as directed. Monitor Diet/Nutritional support. Psych management as per Psych. Pain Management. Physical therapy/Occupational therapy. Fall precaution, frequent nursing rounds, and as needed restraints to prevent fall. Safety precaution. Supportive care. Continue collaborating with consulting specialists, case management and nursing team. Will Monitor patient and continue current treatment plan as ordered. Nutritional Asmnt/Malnutr-PDOC - Dietary Evaluation Malnutrition Findings (Please click <Entered> for more info): Nutritional Asmnt/Malnutrition Start: 09/06/19 15: 01 Text: Status: Complete Freq: Protocol: Document 09/06/19 15:02 MARKUS (Rec: 09/06/19 15:17 MARKUS [id number]) Nutritional Asmnt/Malnutrition Patient General Information Nutritional Screening Low Risk Diagnosis Psychosis Pertinent Medical Hx/Surgical Hx Arthritis, Chronic pain, psychosis, history of DVT Subjective Information Pt is a 58-year-old male admitted on 08/29 d/t agitation and striking out. Pt is eating an estimated 95% of meals per Meal/Nutrition Activity Record. Dietary is currently providing an estimated 2200 kcals and 94 gm Pro, per Pt PO intake this is providing an estimated 2090 kcals and 89gm Pro to meet 95% kcal and 100+% Pro needs- adequate. Visited pt. after lunch, introduced myself and inquired about lunch. Pt. was verbally unresponsive. Spoke with pt. nurse Aleksandar. Nurse stated pt. is eating well and advised still pending pt. lab results, will monitor at follow-up. Anthropometrics HT: 60 WT: 196 LB (89.09 kg) BMI: 26.58 (Overweight) GI/ Skin Integrity GI: WNL, Soft BM: 09/04 x1 I/O: 720/Not Noted Skin: WNL, Intact, Dryness Lacho: 21 Diet Order: Regular Estimated Energy Needs: ( Geriatric, CBW) 9694-7386 kcals (25-30 kcals/ kg) 90-107g Pro (1.0-1.2 g/kg) 2491-9026 ml (25-30 ml/kg) Current Diet Order/ Nutrition Support Regular Patient / S.O Can't verbalize diet edu Pertinent Medications Colace, MOM (PRN), Theragran Pertinent Labs No labs charted; will monitor at follow-up Nutritional Hx/Data Height 6 ft Height (Calculated Centimeters) 182.9 Current Weight (lbs) 196 lb Weight (Calculated Kilograms) 88.9 Weight (Calculated Grams) 86770.1 [place] Body Weight 166 % [place] Body Weight 85 Body Mass Index (BMI) 26.6 Weight Status Overweight GI Symptoms GI Symptoms None Last BM 09/04 x1 Difficult in: None Skin Integrity/Comment: Skin: WNL, Intact, Dryness Lacho: 21 Current %PO Good (75-100%) Estimated Nutritional Goals Kcals Calculated 2200 - 2600 Protein: Using Current wt Protein g/k-107 Fluid: ml 0610-6273 (25-30 ml/kg) Nutritional Problem 1. Problem Problem No nutrition diagnosis at this time. Etiology N/A Signs/Symptoms: N/A Malnutrition Related to Morbid Obesity Malnutrition related to morbid obesity No Intervention/Recommendation Comments Continue regular diet as tolerated. Expected Outcomes/Goals Expected Outcomes/Goals 1. Continue regular diet as tolerated. 2. PO intake to continue to meet 75% of estimated nutritional needs. 3. Monitor PO intake, wt, nutrition related labs to trend WNL. 4. F/U as low risk in 7-10 days, 09/12-09/15
--- NOTE | 2019-09-08 23:45 | Progress Notes ---
DATE: 09/08/2019 Case was discussed with staff of the patient, reviewed records. The patient continues to be internally preoccupied. Continues to be unable to make safe plan for self-care. Continues to be unpredictable, impulsive, needing redirection. I will be increasing his Risperdal to 2.5 mg twice a day. No side effects with the medication, no sedation, no nausea, no extrapyramidal symptoms. We will continue outpatient group therapy, milieu therapy, and adjust medication as needed. JOB# [id number]
[2019-09-09] MEDS: Multivitamin Tab PO SCH (08:29)
--- NOTE | 2019-09-09 12:00 | Progress Notes ---
DATE: 09/09/2019 Case was discussed with staff of the patient, reviewed records. The patient continues to have poor insight, internally preoccupied, but in general, he is sleeping better, eating better. No acting out behavior. Tolerating increase in Risperdal with no side effects, no sedation, no nausea, no extrapyramidal symptoms. Working on discharge plan and hopefully if he does well today, he will be discharging tomorrow. We will continue outpatient group therapy, milieu therapy, adjust medication as needed. JOB# [id number]
[2019-09-10] MEDS: Multivitamin Tab PO SCH (08:10)
--- NOTE | 2019-09-10 13:24 | Discharge Summary ---
DATE OF DISCHARGE: 09/10/2019 IDENTIFYING INFORMATION: The patient is a 58-year-old male. CHIEF COMPLAINT: "I don't know." HISTORY OF PRESENT ILLNESS: Sent from [facility]. The patient was first cleared at [facility]. The patient has been hitting staff at [facility]. Therefore, he has increased aggressiveness. He was diagnosed with bipolar disorder, paranoid schizophrenia, anxiety disorder. He has no idea why he was here, he was able to recognize me. I have been seeing for the past few years before that he was sleeping well, eating well. . COURSE IN THE HOSPITAL: The patient was started back on his medication. He was on Risperdal, increased the dose to 2.5 mg twice a day, Cogentin 0.5 mg twice a day. The patient progressively got better, sleeping well, eating well. He was no longer acting in anyway dangerous. He was continued with the multivitamin, the p.r.n. medication. He did not need any emergency medications as he improved. He was no longer acting out. He was sleeping well, eating well. We felt he was ready to go to a lesser level of care. FINAL DIAGNOSIS: Chronic paranoid schizophrenia with acute exacerbation. MEDICAL DIAGNOSIS: As per medical doctor. The patient will be going back to [facility]. EXPECTED OUTCOME: Stable if the patient complies above. JOB# [id number] CARIN
--- NOTE | 2019-09-10 14:12 | Internal Medicine Prog Note ---
Internal Medicine Subjective - Subjective Service Date: 09/10/19 Patient is:: awake, verbal, ambulating, agitated, confused Patient Complaints of:: other Per staff patient has:: no adverse event, no episodes of fall Internal Medicine Objective - Physical Exam Vitals and I&O: Vital Signs Temp 97.9 F 09/10/19 11:02 Pulse 61 09/10/19 11:02 Resp 17 09/10/19 11:02 BP 102/65 09/10/19 11:02 Pulse Ox 95 09/10/19 11:02 Intake & Output 09/09/19 09/10/19 09/10/19 18:59 06:59 18:59 Intake Total 240 Balance 240 Intake: Oral 240 Other: # Voids 2 # Bowel Movements 0 Stool Characteristics Soft Soft Formed Formed Brown Brown Active Medications: Current Medications Acetaminophen (Tylenol) 650 mg PO Q4H PRN PRN Reason: Pain (Mild 1-3) Stop: 10/30/19 00:51 Benztropine Mesylate (Cogentin) 0.5 mg PO BID [facility] Stop: 10/30/19 16:59 Last Admin: 09/10/19 08:10 Dose: 0.5 mg Docusate Sodium (Colace) 100 mg PO BID KB Stop: 10/30/19 08:59 Last Admin: 09/10/19 08:10 Dose: 100 mg Lorazepam (Ativan) 0.5 mg PO Q4HR PRN; Protocol PRN Reason: Anxiety Stop: 09/29/19 19:24 Last Admin: 09/04/19 02:57 Dose: 0.5 mg Magnesium Hydroxide (Milk Of Magnesia) 30 ml PO HS PRN PRN Reason: Constipation Multivitamins/Vitamin C (Theragran) 1 tab PO DAILY [facility] Stop: 10/30/19 08:59 Last Admin: 09/10/19 08:10 Dose: 1 tab Risperidone 2 mg/ Risperidone (0.5 mg) 2.5 mg PO BID [facility] Stop: 11/07/19 16:59 Last Admin: 09/10/19 08:11 Dose: 2.5 mg Zolpidem Tartrate (Ambien) 5 mg PO HS PRN PRN Reason: Insomnia Stop: 10/29/19 19:24 Last Admin: 09/09/19 21:57 Dose: 5 mg General: demented, NAD HEENT: NC/AT Neck: Supple, No JVD Lungs: CTAB Cardiovascular: RRR, Normal S1, Normal S2 Abdomen: soft, non-tender, non-distended Extremities: clear Neurological: no change Internal Medicine Assmt/Plan - Assessment Assessment: Acute Psychosis. Agitation. Arthritis. Chronic pain. History of DVT. - Plan Plan: Continuation of care. Monitor Vitals, Labs, Hemoglobin levels. Continue present meds as directed. Monitor Diet/Nutritional support. Psych management as per Psych. Pain Management. Physical therapy/Occupational therapy. Fall precaution, frequent nursing rounds, and as needed restraints to prevent fall. Safety precaution. Supportive care. Continue collaborating with consulting specialists, case management and nursing team. Will Monitor patient and continue current treatment plan as ordered. Nutritional Asmnt/Malnutr-PDOC - Dietary Evaluation Malnutrition Findings (Please click <Entered> for more info): Nutritional Asmnt/Malnutrition Start: 09/06/19 15: 01 Text: Status: Complete Freq: Protocol: Document 09/06/19 15:02 MARKUS (Rec: 09/06/19 15:17 MARKUS [id number]) Nutritional Asmnt/Malnutrition Patient General Information Nutritional Screening Low Risk Diagnosis Psychosis Pertinent Medical Hx/Surgical Hx Arthritis, Chronic pain, psychosis, history of DVT Subjective Information Pt is a 58-year-old male admitted on 08/29 d/t agitation and striking out. Pt is eating an estimated 95% of meals per Meal/Nutrition Activity Record. Dietary is currently providing an estimated 2200 kcals and 94 gm Pro, per Pt PO intake this is providing an estimated 2090 kcals and 89gm Pro to meet 95% kcal and 100+% Pro needs- adequate. Visited pt. after lunch, introduced myself and inquired about lunch. Pt. was verbally unresponsive. Spoke with pt. nurse Aleksandar. Nurse stated pt. is eating well and advised still pending pt. lab results, will monitor at follow-up. Anthropometrics HT: 60 WT: 196 LB (89.09 kg) BMI: 26.58 (Overweight) GI/ Skin Integrity GI: WNL, Soft BM: 09/04 x1 I/O: 720/Not Noted Skin: WNL, Intact, Dryness Lacho: 21 Diet Order: Regular Estimated Energy Needs: ( Geriatric, CBW) 8480-5821 kcals (25-30 kcals/ kg) 90-107g Pro (1.0-1.2 g/kg) 3979-9293 ml (25-30 ml/kg) Current Diet Order/ Nutrition Support Regular Patient / S.O Can't verbalize diet edu Pertinent Medications Colace, MOM (PRN), Theragran Pertinent Labs No labs charted; will monitor at follow-up Nutritional Hx/Data Height 6 ft Height (Calculated Centimeters) 182.9 Current Weight (lbs) 196 lb Weight (Calculated Kilograms) 88.9 Weight (Calculated Grams) 02029.1 [place] Body Weight 166 % [place] Body Weight 85 Body Mass Index (BMI) 26.6 Weight Status Overweight GI Symptoms GI Symptoms None Last BM 09/04 x1 Difficult in: None Skin Integrity/Comment: Skin: WNL, Intact, Dryness Lacho: 21 Current %PO Good (75-100%) Estimated Nutritional Goals Kcals Calculated 2200 - 2600 Protein: Using Current wt Protein g/k-107 Fluid: ml 0849-4540 (25-30 ml/kg) Nutritional Problem 1. Problem Problem No nutrition diagnosis at this time. Etiology N/A Signs/Symptoms: N/A Malnutrition Related to Morbid Obesity Malnutrition related to morbid obesity No Intervention/Recommendation Comments Continue regular diet as tolerated. Expected Outcomes/Goals Expected Outcomes/Goals 1. Continue regular diet as tolerated. 2. PO intake to continue to meet 75% of estimated nutritional needs. 3. Monitor PO intake, wt, nutrition related labs to trend WNL. 4. F/U as low risk in 7-10 days, 09/12-09/15
== END 2019-09-10 14:20 | DRG 885 ==
LOC: GERO 19:25
PROVIDERS: ADMIT Psychiatry & Neurology Psychiatry; ATTEND Psychiatry & Neurology Psychiatry
DX: F20.0 Paranoid schizophrenia (principal); F31.9 Bipolar disorder, unspecified; M19.90 Unspecified osteoarthritis, unspecified site; G89.29 Other chronic pain; Z86.718 Personal history of other venous thrombosis and embolism
CPT/HCPCS: 83036-90; 90899; G0410; Z7610